=== PATIENT | male | born 1945 | race Caucasian/White ===

== ENCOUNTER → 2017-07-29 08:37 | Outpatient (CLI) | payer MEDICARE, OTHER, SELFPAY ==
[2016-08-06 14:55] VITALS: BMI 28.2
[2017-07-29 11:19] LABS: AST(SGOT) 18 U/L (15-37); Alanine Aminotransfer ALT/SGPT 29 U/L (16-61); Alkaline Phosphatase 92 U/L (45-117); Bilirubin, Direct 0.17 mg/dL (0.00-0.30); Cholesterol 84 mg/dL (200); Globulin 3.4 g/dL (2.2-4.2); High Density Lipoprotein 40 mg/dL; Protein, Total 7.4 g/dL (6.4-8.2); Triglycerides 62 mg/dL; Very Low Density Lipoprotein 12 mg/dL (5-40)
== END ==
PROVIDERS: Family Provider Internal Medicine; PCP Internal Medicine; Visit Provider Internal Medicine Cardiovascular Disease
DX: E78.5 Hyperlipidemia, unspecified (principal); Z79.899 Other long term (current) drug therapy
CPT/HCPCS: 36415; 80061; 80076

== ENCOUNTER → 2018-06-10 08:51 | Outpatient (CLI) | payer MEDICARE, OTHER, SELFPAY ==
[2016-08-06 14:55] VITALS: BMI 28.2
[2018-06-02 13:43] VITALS: BMI 28.6
--- NOTE | 2018-06-10 08:56 | CDU_ITS ---
Reason For Study: dizziness, carotid artery disease Rt. Velocities/BP Lt. Velocities/BP Prox CCA 83.8/12.9 cm/sec. Prox CCA 110/20.5 cm/sec. Mid CCA 78.0/15.2 cm/sec. Mid CCA 81.5/21.7 cm/sec. Dist CCA 66.3/14.7 cm/sec. Dist CCA 76.2/17.0 cm/sec. Prox ICA 53.9/15.2 cm/sec. Prox ICA 67.4/17.0 cm/sec. Mid ICA 82.1/18.2 cm/sec. Mid ICA 73.3/25.2 cm/sec. Dist ICA 71.3/20.7 cm/sec. Dist ICA 83.8/28.1 cm/sec. Rt. ICA/CCA = 1.1. Lt. ICA/CCA = 1.0. Prox ECA 157/16.5 cm/sec. Prox ECA 116/14.9 cm/sec. Rt. Vert. 72.1/18.8 cm/sec. Lt. Vert. 30.2 cm/sec. Right Extracranial There is intimal thickening but no significant atherosclerotic plaque noted in the right common carotid artery. There is heterogeneous, irregular atherosclerotic plaque noted in the right internal carotid artery. There is heterogeneous, irregular atherosclerotic plaque noted in the right external carotid artery. Antegrade flow is noted in the right vertebral artery. Left Extracranial There is intimal thickening but no significant atherosclerotic plaque noted in the left common carotid artery. There is heterogeneous, irregular atherosclerotic plaque noted in the left internal carotid artery. There is heterogeneous, irregular atherosclerotic plaque noted in the left external carotid artery. Antegrade flow is noted in the left vertebral artery. No end diastolic flow in the left Vertebral Artery. Interpretation Summary Mild (<50%) stenosis right extracranial internal carotid. Mild (<50%) stenosis left extracranial internal carotid. Flow within the vertebral arteries is antegrade bilaterally. Ordering Physician: Gerhard York Performed By: Leonard Josue RVT
== END ==
PROVIDERS: Family Provider Internal Medicine; PCP Internal Medicine; Referring Provider Internal Medicine Cardiovascular Disease; Visit Provider Internal Medicine Cardiovascular Disease
DX: R09.89 Other specified symptoms and signs involving the circulatory and respiratory systems (principal); E78.00 Pure hypercholesterolemia, unspecified
CPT/HCPCS: 93880

== ENCOUNTER → 2018-06-11 08:03 | Outpatient (CLI) | payer MEDICARE, OTHER, SELFPAY ==
[2016-08-06 14:55] VITALS: BMI 28.2
[2018-06-02 13:43] VITALS: BMI 28.6
[2018-06-11 08:49] LABS: AST(SGOT) 16 U/L (15-37); Alanine Aminotransfer ALT/SGPT 31 U/L (16-61); Albumin, Serum 3.9 g/dL (3.2-5.0); Alkaline Phosphatase 90 U/L (45-117); Bilirubin, Direct 0.25 mg/dL (0.00-0.30); Cholesterol 95 mg/dL (200); Globulin 3.1 g/dL (2.2-4.2); High Density Lipoprotein 44 mg/dL; Triglycerides 72 mg/dL; Very Low Density Lipoprotein 14 mg/dL (5-40)
--- OUTSIDE RECORDS SUMMARY | 2018-08-15 22:59 | XMS RPT_ITS ---
:1945 Author Organization OHIP Care Team Providers Name Role Phone ARIE TURNER Attending Unavailable ARIE TURNER Attending Unavailable ARIE TURNER Referring Unavailable ARIE TURNER Referring Unavailable ARIE TURNER Referring Unavailable ARIE TURNER Referring Unavailable ARIE TURNER Attending Unavailable ARIE TURNER Referring Unavailable Gerhard York Attending Unavailable Gerhard York Referring Unavailable Arie Turner Primary Care Unavailable Gerhard York Attending Unavailable Gerhard York Referring Unavailable Arie Turner Primary Care Unavailable Gerhard York Attending Unavailable Gerhard York Referring Unavailable Arie Turner Primary Care Unavailable Rosanna Escobedo Attending Unavailable Arie Turner Referring Unavailable Arie Turner Primary Care Unavailable Ashley rAgueta Attending Unavailable Rosanna Reilly Attending Unavailable Gerhard York Attending Unavailable Arie Turner Referring Unavailable PROBLEMS PROBLEMS DATE TYPE CONDITION / CODE ATTENDING STATUS SOURCE Unknown E78.00 - Pure [place], Active [place] 9 hypercholesterolemia, [facility] unspecified / Hospital E78.00(ICD-10) Repository Unknown R09.89 - Other specified [place], Active [place] 9 symptoms and signs [facility] involving the circulatory Hospital and respiratory systems / Repository R09.89(ICD-10) Unknown E78.0 - Pure [place], Active [place] 9 hypercholesterolemia / [facility] E78.0(ICD-10) Hospital Repository Active Other fci (current) NA Active [facility] 8 drug therapy / Clinic Main Z79.899(ICD-10) [place] Repository Active Hypothyroidism, NA Active [facility] 8 unspecified / Clinic Main E03.9(ICD-10) [facility] Repository Active Other amnesia / NA Active [place] 8 R41.3(ICD-10) Clinic Main [place] Repository Active Encounter for screening NA Active [place] 8 for malignant neoplasm of Clinic Main colon / Z12.11(ICD-10) [place] Repository Unknown Z79.899 - Other fci [place], Active [place] 8 (current) drug therapy / [facility] Z79.899(ICD-10) Hospital Repository Unknown E78.5 - Hyperlipidemia, [place], Active [place] 8 unspecified / [facility] E78.5(ICD-10) Hospital Repository PROCEDURES PROCEDURES No Procedure Records FoundRESULTS RESULTS CAROTID DUPLEX Observed: 06/11/2018 Status: F Source: [place] ULTRASOUND 11:37 AM [facility] REPOSITORY [facility] Cardiovascular Services [address] [place] [address] Carotid Duplex Ultrasound 06/10/18 0900 MR#: [id number] Acct: [id number] Name: DELMY DOW Rep #: [id number] : 1945 73 From: Jeffery Duque MD Attending Dr: Gerhard York MD Status: REG CLI Ordering Dr: Gerhard York MD Date: 06/10/18 Location: [facility] Sex: M C Admitted: Reason For Study: dizziness, carotid artery disease Rt. Velocities/BP Lt. Velocities/BP Prox CCA 83.8/12.9 cm/sec. Prox CCA 110/20.5 cm/sec. Mid CCA 78.0/15.2 cm/sec. Mid CCA 81.5/21.7 cm/sec. Dist CCA 66.3/14.7 cm/sec. Dist CCA 76.2/17.0 cm/sec. Prox ICA 53.9/15.2 cm/sec. Prox ICA 67.4/17.0 cm/sec. Mid ICA 82.1/18.2 cm/sec. Mid ICA 73.3/25.2 cm/sec. Dist ICA 71.3/20.7 cm/sec. Dist ICA 83.8/28.1 cm/sec. Rt. ICA/CCA = 1.1. Lt. ICA/CCA = 1.0. Prox ECA 157/16.5 cm/sec. Prox ECA 116/14.9 cm/sec. Rt. Vert. 72.1/18.8 cm/sec. Lt. Vert. 30.2 cm/sec. Right Extracranial There is intimal thickening but no significant atherosclerotic plaque noted in the right common carotid artery. There is heterogeneous, irregular atherosclerotic plaque noted in the right internal carotid artery. There is heterogeneous, irregular atherosclerotic plaque noted in the right external carotid artery. Antegrade flow is noted in the right vertebral artery. Left Extracranial There is intimal thickening but no significant atherosclerotic plaque noted in the left common carotid artery. There is heterogeneous, irregular atherosclerotic plaque noted in the left internal carotid artery. There is heterogeneous, irregular atherosclerotic plaque noted in the left external carotid artery. Antegrade flow is noted in the left vertebral artery. No end diastolic flow in the left Vertebral Artery. Interpretation Summary Mild (<50%) stenosis right extracranial internal carotid. Mild (<50%) stenosis left extracranial internal carotid. Flow within the vertebral arteries is antegrade bilaterally. Ordering Physician: Gerhard York Performed By: Leonard Josue RVT 06/11/18 113 Date Jeffery Duque MD CC: Gerhard York MD; Arie Turner MD Date Dictated: 06/10/18 09 Date Transcribed: 06/11/181135 Plant Controller: Signed LIVER PROFILE Collected: 06/11/2018 Status: F Source: [place] 8:11 AM [facility] REPOSITORY TYPE CODE TESTS RESULT OUT OF RANGE REFERENCE UNITS LAB L501.1500 6.4-8.2 g/dL Normal T PROT 7.0 LAB L501.1800 3.2-5.0 g/dL Normal ALB 3.9 LAB L501.1950 2.2-4.2 g/dL Normal GLOB 3.1 LAB L501.4100 15-37 U/L Normal AST 16 LAB L501.4305 45-117 U/L Normal ALK P 90 LAB L501.4405 16-61 U/L Normal ALT 31 LAB L501.4600 0.20-1.00 mg/dL Normal T BILI 0.80 LAB L501.4700 0.00-0.30 mg/dL Normal D BILI 0.25 Performed By: #### L500.3400, L500.4100 #### [facility] [address] [place], [place], [id number] LIPID PROFILE Collected: 06/11/2018 Status: F Source: [place] 8:11 AM [facility] REPOSITORY TYPE CODE TESTS RESULT OUT OF RANGE REFERENCE UNITS LAB L501.4900 200 mg/dL Normal CHOL 95 Result Comment: <200 mg/dL Desirable 200-240 mg/dL Borderline >240 mg/dL High Risk LAB L501.5000 mg/dL Normal TRIG 72 Result Comment: The drugs N-Acetylcysteine and Metamizole may falsely depress this assay. Serum Triglycerides Reference Interval Normal <150 mg/dL Borderline high 150 - 199 mg/dL High 200 - 499 mg/dL Very High > or = 500 mg/dL LAB L501.6400 mg/dL Normal HDL 44 Result Comment: The drugs N-Acetylcysteine and Metamizole may falsely depress this assay. Reference Range HDL <40 mg/dL Low HDL Cholesterol HDL >or= 60 mg/dL High HDL Cholesterol LAB L501.6500 0-130 mg/dL Normal LDL 37 LAB L501.6600 5-40 mg/dL Normal VLDL 14 Performed By: #### L500.3400, L500.4100 #### [facility] [address] [place], [address] CARDIOLOGY VISIT Observed: 06/02/2018 Status: F Source: [place] REPORT 2:39 PM [facility] REPOSITORY [facility] [address] [place] [address] OFFICE VISIT Date of Service: 06/02/18 MR#: [id number] Acct: [id number] Name: DELMY DOW Rep #: [id number] : 1945 Provider: Gerhard York MD Age/Sex: 73/M [place] [facility] [place] Status: Signed HPI HPI Details: DELMY DOW, is a 73 M who presents to the office today for outpatient cardiovascular follow-up. Overall he states he is doing well. He is walking approximately 4 miles per day. He feels good doing that. He has no symptoms of classic angina pectoris and has had no evidence of acute CHF or pulmonary edema. There has been no near syncope or syncope. He does not believe his lipids have been checked since his last lipid profile performed in July 2016. He also does not believe he has had his carotid arteries checked in quite some time. The last report available was from 2012. Intake Vital Signs06/02/18 Height 5 ft 9 in 06/02/18 Weight: 194 lb 06/02/18 Body Mass Index (BMI) 28.6 06/02/18 Blood Pressure 140/82 H Intake Visit Reasons: 10 M FU Allergies alginic acid Adverse Reaction (Verified 06/02/18 13:43) Unknown aluminum hydroxide Adverse Reaction (Verified 06/02/18 13:43) Unknown cromolyn [From Gastrocrom] Adverse Reaction (Verified 06/02/18 13:43) Hives magnesium Adverse Reaction (Verified 06/02/18 13:43) Unknown Medications Aspirin 81 mg PO DAILY 08/06/16 [History Confirmed 06/02/18] Tamsulosin HCl [Flomax] 0.4 mg PO DAILY 08/06/16 [History Confirmed 06/02/18] hydrochlorothiazide 25 mg tablet 25 mg PO DAILY #90 tab 06/06/17 [Rx Confirmed 06/02/18] atorvastatin 80 mg tablet 80 mg PO QHS #30 tab 08/02/17 [Rx Confirmed 06/02/18] clopidogrel 75 mg tablet 75 mg PO QDAY #30 tab 09/03/17 [Rx Confirmed 06/02/18] metoprolol succinate ER 25 mg tablet,extended release 24 hr 25 mg PO QDAY #90 tab 10/01/17 [Rx Confirmed 06/02/18] lisinopril 20 mg tablet 20 mg PO DAILY #90 tab 02/25/18 [Rx Confirmed 06/02/18] doxazosin 2 mg tablet 2 mg PO DAILY 06/02/18 [History Confirmed 06/02/18] [facility] Medical History Frequent ventricular premature beats (Chronic) Carotid bruit (Chronic) Sinus bradycardia (Chronic) Atrial arrhythmia (Chronic) Essential hypertension (Chronic) Atherosclerosis of coronary artery without angina pectoris (Chronic) 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 (Chronic) Atherosclerosis of coronary artery bypass graft without angina pectoris (Chronic) Non-ST elevated myocardial infarction (Chronic) HLD (hyperlipidemia) (Chronic) HTN (hypertension) (Inactive) Surgical History S/P CABG x 3 (Chronic 07/22/01) S/P angioplasty with stent (Chronic 08/06/16) Family History Father Cancer Hypertension Mother Diabetes CHF (congestive heart failure) Brother Hypertension Sister Hypertension Other Family history of hypertension Social History Smoking Status: Former smoker how long ago did patient quit smokin alcohol intake: current alcohol intake frequency: 0-2 drinks per day Alcohol type: wine substance use type: does not use caffeine: Yes Type: coffee what type of physical activity do you participate in: walking frequency: daily duration: 30-45 minutes/day seatbelt use: always do you feel safe at home: Yes ROS Const Const: Negative for fatigue, weakness, weight gain, weight loss, frequent falls or excessive sweating Eyes Eyes: Negative for change in vision, blurry vision or transient loss of vision ENT ENT: Positive for balance problems (occasional bending over); negative for dizziness Cardio Chest Pain: No Palpitations: No Edema: None Muscle aches with walking: None Resp Respiratory: Positive for Cough (productive cough, has a cold); negative for SOB with activity or SOB at rest GI GI: Negative vomiting or vomiting blood/hematemesis : Negative for hematuria Musc Musc: Positive for balance problems (occasional bending over); negative for muscle aches/ myalgia, muscle weakness or joint pain Skin Skin: Negative non-healing lesions or rash Neuro Neuro: Negative for weakness, blurry vision, dizziness, lightheadedness, frequent falls or orthostatic symptoms Beny Hematologic/Lymphatic: Negative for easy bleeding Endo Endo: Negative for fatigue or excessive sweating Psych Psych: Negative for anxiety or depression Allergy Allergy/Immunology: Negative for hives, Negative for rash Cardiology Exam Const Appearance: cooperative, no acute distress, well developed, healthy appearing and comfortable Nutritional Appearance: overweight Orientation: alert, awake and oriented x3 Head Head: normocephalic, atraumatic and normal to inspection Ears: hearing grossly normal bilaterally Nose: external nose normal Face and Sinus: face symmetric Mouth: moist mucous membranes Eyes Eyelids: eyelids normal Conjunctivae: conjunctivae normal Pupils: PERRL EOM: EOM intact bilaterally Neck Neck: normal visual inspection, no JVD and full ROM Carotids: bruit Bilateral Neck Mass: Negative Neck mass Chest Chest inspection: normal inspection of the chest, symmetric chest movement and normal respiratory effort Auscultation: Bilateral: Clear to Auscultation Cardio Palpation: normal PMI Rate: regular rate Rhythm: regular rhythm Heart sounds: S1 normal and S2 normal; negative rub, gallop or murmur GI GI: normal to inspection, soft and bowel sounds present; negative tender Neuro General: alert, awake, oriented x3 and moves all extremities Skin Skin: no rashes or lesions noted Extremities Pulses: Normal: Right Posterior Tibial Pulse, Left Posterior Tibial Pulse, Right Radial Pulse, Left Radial Pulse Lower Extremity Edema: None: Bilateral Psych Psychological: normal affect Assessment AND Plan 1. Atherosclerosis of [place] coronary artery of [place] heart without angina pectoris I25.10 07/21/01, FARLEY to LAD, diagonal branch of anterior descending with radial artery grafting to RCA with stenting to LAD and Dx in 2016 Plan At the present time he appears to be doing well. He will continue his current medical management and follow-up. 2. S/P CABG x 3 Z95.1 FARLEY to LAD, diagonal branch of anterior descending with radial artery grafting to RCA, 07/22/01 Plan He does have a history of CABG as noted above. Again he will continue medical therapy and follow-up 3. S/P angioplasty with stent Z95.820 [facility] w/PCI AND MELISSA to mid LAD 08/06/16 Plan He is status post previous PCI. Again he will continue medical management and follow-up. 4. Pure hypercholesterolemia E78.00 Plan He will have his lipid labs performed Orders Orders: 5. Essential hypertension I10 Plan His blood pressure appears to be under reasonably good control overall. He will continue medical management and follow-up 6. Bilateral carotid bruits R09.89 Plan He does have bilateral carotid artery bruits. The left may be somewhat more prominent than the right. He has had a carotid artery duplex study performed in 2012. He did have carotid artery stenosis. It was reported as mild at that time. He will have further evaluation with a follow-up carotid artery duplex study. Orders Orders: Plan Detail Other Orders Orders: Additional Comments Thank you for allowing me to participate in the care of your patient. Please don't hesitate to call if any issues arise This note was generated using a voice recognition system and there may be incorrect words, spelling or punctuation that were not noted when reviewing the office note prior to saving. Follow Up 9 Months (PFM) Coding Level of Care Code Off vis,est,level 4 Diagnoses Atherosclerosis of [place] coronary artery of [place] heart without angina pectoris I25.10 Coronary Disease-Associated Artery/Lesion type: [place] artery [place] vs. transplanted heart: [place] heart S/P CABG x 3 Z95.1 S/P angioplasty with stent Z95.820 Pure hypercholesterolemia E78.00 Hyperlipidemia type: pure hypercholesterolemia Essential hypertension I10 Bilateral carotid bruits R09.89 Laterality: bilateral Coding Level of Care Code Off vis,est,level 4 Diagnoses Atherosclerosis of [place] coronary artery of [place] heart without angina pectoris I25.10 Coronary Disease-Associated Artery/Lesion type: [place] artery [place] vs. transplanted heart: [place] heart S/P CABG x 3 Z95.1 S/P angioplasty with stent Z95.820 Pure hypercholesterolemia E78.00 Hyperlipidemia type: pure hypercholesterolemia Essential hypertension I10 Bilateral carotid bruits R09.89 Laterality: bilateral Supplemental Info Supplemental Information Labs LDL Cholesterol 32 mg/dL (0-130) 07/29/17 HDL Cholesterol 40 mg/dL (40-) 07/29/17 Triglycerides 62 mg/dL (-199) 07/29/17 VLDL Cholesterol 12 mg/dL (5-40) 07/29/17 Diagnostics Electrocardiogram 08/08/16 Stress Test Nuclear Medicine 07/07/15 Stress Test 09/14/16 Cardiac Catheterization 08/06/16 Chest X-Ray 08/06/16 06/02/18 1439 <Electronically signed by Gerhard York MD> Date Gerhard York MD Cosigner Signature: Date (if applicable) CC: Arie Turner MD PROGRESS Observed: 04/08/2018 Status: COMPLETED Source: [place] 9:30 AM [facility] REPOSITORY O ID: [id number] Author: Arie Turner Service: (none) Author Type: Physician Type: Progress Notes Filed: 04/08/2018 9:38 AM Note Text: This note was created using Tongtechriter. Subjective Delmy Dow is a 73 year old male. He was doing well. His blood pressure came down on recheck at the end of the visit, and he admitted to some anxiety at any physician office. He was scheduled to see his oncology social worker soon. He had chronic cough, but no wheezing, no change in minor dyspnea on exertion. He walked 10K steps almost daily. Other conditions were controlled. ACTIVE PROBLEM LIST Coronary Atherosclerosis Essential Hypertension Hyperlipidemia Bph With Obstruction/Lower Urinary Tract Symptoms Pac (Premature Atrial Contraction) Pvc (Premature Ventricular Contraction) Chronic Bronchitis (Hcc) Memory Disturbance Current Outpatient Prescriptions: doxazosin (CARDURA) 2 mg tablet take 1 tablet daily at bedtime for prostate clopidogrel (PLAVIX) 75 mg tablet Take 75 mg by mouth once daily. atorvastatin (LIPITOR) 80 mg tablet Take 1 tablet by mouth daily at bedtime. For cholesterol. hydroCHLOROthiazide (HYDRODIURIL, ESIDRIX) 25 mg tablet Take 1 tablet by mouth. hypertension lisinopril (ZESTRIL, PRINIVIL) 20 mg tablet Take 1 tablet by mouth once daily. Hypertension. multivitamin tablet Take 1 tablet by mouth once daily. aspirin, enteric coated (ASPIR-LOW) 81 mg EC tablet Take 1 tablet by mouth once daily. Dr. York metoprolol succinate ER (TOPROL XL) 25 mg 24 hr tablet Take 1 tablet by mouth once daily. Dr. York NITROGLYCERIN 0.[address] one(1) tablet on tongue as needed for chest pain. If no pain relief call 911. No current facility-administered medications for this visit. Review of Systems Constitutional: Negative. Respiratory: Positive for cough. Negative for chest tightness, shortness of breath and wheezing. Cardiovascular: Negative. Gastrointestinal: Negative. Musculoskeletal: Negative. Neurological: Negative. Psychiatric/Behavioral: Negative. Objective BP 130/72 (BP Site: Left Arm, BP Position: Sitting, BP Cuff Size: Regular Adult) Pulse 61 Temp 36.2 ?C (97.2 ?F) (Left Tympanic) Resp 12 Ht 174.6 cm (5' 8.75) Wt 84.8 kg (187 lb) BMI 27.82 kg/m? Physical Exam Constitutional: He is oriented to person, place, and time. No distress. HENT: Head: Normocephalic. Eyes: Pupils are equal, round, and reactive to light. Conjunctivae and EOM are normal. Neck: No JVD present. Carotid bruit is not present. Cardiovascular: Regular rhythm, normal heart sounds and intact distal pulses. Bradycardia present. Exam reveals no gallop. No murmur heard. Pulmonary/Chest: Breath sounds normal. He has no wheezes. He has no rales. Abdominal: Soft. Musculoskeletal: He exhibits no edema. Neurological: He is alert and oriented to person, place, and time. Coordination normal. Assessment and Plan 1. Medicare annual wellness visit, subsequent - ICD9: V70.0, ICD10: Z00.00 (primary diagnosis) Other note. 2. Essential hypertension - ICD9: 401.9, ICD10: I10 - fair control - Continue current medication(s) - Reviewed risks of HTN and principles of treatment - Goal of BP <130/80 3. Atherosclerosis of coronary artery of [place] heart without angina pectoris, unspecified vessel or lesion type - ICD9: 414.01, ICD10: I25.[address] York. 4. Hyperlipidemia, unspecified hyperlipidemia type - ICD9: 272.4, ICD10: E78.5 - to be determined upon return of lab results - Continue current medication. - Have labs sent here. 5. Chronic bronchitis, unspecified chronic bronchitis type (HCC) - ICD9: 491.9, ICD10: J42 Mild, stable, no treatment needed. Arie Turner MD PROGRESS Observed: 04/08/2018 Status: COMPLETED Source: [place] 9:14 AM [facility] REPOSITORY O ID: [id number] Author: Arie Turner Service: (none) Author Type: Physician Type: Progress Notes Filed: 04/08/2018 9:38 AM Note Text: Medicare Yearly Visit Medical B eligibilty date 2011 Date of last exam N/A PAST MEDICAL HISTORY Diagnosis Date - Chronic bronchitis (HCC) 08/11/2012 - Coronary atherosclerosis of unspecified type of vessel, [place] or graft 03/14/2005 - Hypertrophy of prostate with urinary obstruction and other lower urinary tract symptoms (LUTS) 03/14/2005 - Non-STEMI (non-ST elevated myocardial infarction) (HCC) 08/06/2016 - Other and unspecified hyperlipidemia 03/14/2005 - Postsurgical aortocoronary bypass status 03/14/2005 - PVC (premature ventricular contraction) 08/29/2011 - Status post insertion of drug-eluting stent into left anterior descending artery 08/06/2016 - Unspecified essential hypertension 03/14/2005 - Unspecified hearing loss PAST SURGICAL HISTORY Procedure Laterality Date - CABG, ARTERY-VEIN, THREE 2001 CABG, three grafts - CC CORONARY STENT 08/07/2016 MELISSA to LAD - REMOVAL GALLBLADDER 10/01/2002 Cholecystectomy Gaviscon [Aluminum Hydrox-Magnesium Carb] Medications reviewed: Yes FAMILY HISTORY Problem Relation Age of Onset - Cancer Father metastatic cancer - Diabetes Mother - GI Brother colon polyps - Seizures Brother - Blood Disease Brother leukemia - No Known Problems Sister - No Known Problems Sister - No Known Problems Brother - No Known Problems Brother - No Known Problems Brother - No Known Problems Brother SOCIAL HISTORY: Social History Marital status: Spouse name: Years of education: Number of children: Occupational History Occupation Employer Comment [employer] Social History Main Topics Smoking status: Former Smoker Packs/day: 2.00 Years: 30.00 Types: Cigarettes Quit date: 05/27/1997 Smokeless tobacco: Never Used Alcohol use: Yes 10.5 oz/week Glasses of Wine (5oz): 7 per week Comment: red wine Drug use: No Sexual activity: Yes Social History Narrative Lives with spouse. Independent of all activities of daily living. Delmy works out regularly 7 times per week with walking. He watches his diet for sodium, low fat and low cholesterol most of the time. List of current specialists seen: Dr. Gerhard York, cardiology. End of Live Planning discussed including patients advanced directive wishes: Yes I am willing to follow Delmy's advanced directives. Depression screen He in the past two weeks denies having felt down, depressed, hopeless or with little interest or pleasure in doing things. Functional Ability/Safety Screen 1. Was the patient's timed Up and Go test unsteady or longer than 30 seconds? No 2. Does the patient need help with the phone, transportation, shopping,preparing meals, housework, laundry, medications or managing money? No 3. Does your home have rugs in the hallway, lack of grab bars in the bathroom, lack of handrails on the stairs or have poor lighting? No Hearing Evaluation: hard of hearing, does not wear his hearing aids. PHYSICAL EXAM BP 158/86 (BP Site: Left Arm, BP Position: Sitting, BP Cuff Size: Regular Adult) Pulse 61 Temp 36.2 ?C (97.2 ?F) (Left Tympanic) Resp 12 Ht 174.6 cm (5' 8.75) Wt 84.8 kg (187 lb) BMI 27.82 kg/m? Alert and oriented X 3: YES Body mass index is 27.82 kg/m?. Visual acuity: OD: 20/40 OS: 20/40 OU: 20/40 ASSESSMENT/PLAN: 73 year old male The following prevention plan was discussed during the office visit and provided to the patient: - Weight Loss - Vaccines recommended Shingrix. - Glaucoma screening Arie Turner MD CNOV Observed: 04/08/2018 Status: COMPLETED Source: [place] 8:40 AM [facility] REPOSITORY Office Visit (INTMWS) DELMY DOW ([id number]) 1945 M Date Time Provider Department 04/08/18 8:40 AM ARIE TURNER INTMWS During your visit today, we recorded the following information about you: Temperature Pulse Respiration Blood pressure 97.2 degrees 61/minute 12/minute 130/72 Weight Height 84.8 kg 1.746 m Arie Turner MD 04/08/2018 9:38 AM Signed Medicare Yearly Visit Medical B eligibilty date 2011 Date of last exam N/A PAST MEDICAL HISTORY Diagnosis Date - Chronic bronchitis (HCC) 08/11/2012 - Coronary atherosclerosis of unspecified type of vessel, [place] or graft 03/14/2005 - Hypertrophy of prostate with urinary obstruction and other lower urinary tract symptoms (LUTS) 03/14/2005 - Non-STEMI (non-ST elevated myocardial infarction) (HCC) 08/06/2016 - Other and unspecified hyperlipidemia 03/14/2005 - Postsurgical aortocoronary bypass status 03/14/2005 - PVC (premature ventricular contraction) 08/29/2011 - Status post insertion of drug-eluting stent into left anterior descending artery 08/06/2016 - Unspecified essential hypertension 03/14/2005 - Unspecified hearing loss PAST SURGICAL HISTORY Procedure Laterality Date - CABG, ARTERY-VEIN, THREE 2001 CABG, three grafts - CC CORONARY STENT 08/07/2016 MELISSA to LAD - REMOVAL GALLBLADDER 10/01/2002 Cholecystectomy Gaviscon [Aluminum Hydrox-Magnesium Carb] Medications reviewed: Yes FAMILY HISTORY Problem Relation Age of Onset - Cancer Father metastatic cancer - Diabetes Mother - GI Brother colon polyps - Seizures Brother - Blood Disease Brother leukemia - No Known Problems Sister - No Known Problems Sister - No Known Problems Brother - No Known Problems Brother - No Known Problems Brother - No Known Problems Brother SOCIAL HISTORY: Social History Marital status: Spouse name: Years of education: Number of children: Occupational History Occupation Employer Comment [employer]* Social History Main Topics Smoking status: Former Smoker Packs/day: 2.00 Years: 30.00 Types: Cigarettes Quit date: 05/27/1997 Smokeless tobacco: Never Used Alcohol use: Yes 10.5 oz/week Glasses of Wine (5oz): 7 per week Comment: red wine Drug use: No Sexual activity: Yes Social History Narrative Lives with spouse. Independent of all activities of daily living. Delmy works out regularly 7 times per week with walking. He watches his diet for sodium, low fat and low cholesterol most of the time. List of current specialists seen: Dr. Gerhard York, cardiology. End of Live Planning discussed including patients advanced directive wishes: Yes I am willing to follow Delmy's advanced directives. Depression screen He in the past two weeks denies having felt down, depressed, hopeless or with little interest or pleasure in doing things. Functional Ability/Safety Screen 1. Was the patient's timed Up and Go test unsteady or longer than 30 seconds? No 2. Does the patient need help with the phone, transportation, shopping,preparing meals, housework, laundry, medications or managing money? No 3. Does your home have rugs in the hallway, lack of grab bars in the bathroom, lack of handrails on the stairs or have poor lighting? No Hearing Evaluation: hard of hearing, does not wear his hearing aids. PHYSICAL EXAM BP 158/86 (BP Site: Left Arm, BP Position: Sitting, BP Cuff Size: Regular Adult) Pulse 61 Temp 36.2 ?C (97.2 ?F) (Left Tympanic) Resp 12 Ht 174.6 cm (5' 8.75) Wt 84.8 kg (187 lb) BMI 27.82 kg/m? Alert and oriented X 3: YES Body mass index is 27.82 kg/m?. Visual acuity: OD: 20/40 OS: 20/40 OU: 20/40 ASSESSMENT/PLAN: 73 year old male The following prevention plan was discussed during the office visit and provided to the patient: - Weight Loss - Vaccines recommended Shingrix. - Glaucoma screening MD Arie Smith MD 04/08/2018 9:30 AM Signed Recombinant shingles vaccine (Shingrix) is recommended; 2 doses 2-6 months apart. Please read information, check with your insurance, and call to schedule vaccination. You may also be directed to your local pharmacy. Arie Turner MD 04/08/2018 9:38 AM Signed This note was created using Porch. Subjective Delmy Dow is a 73 year old male. He was doing well. His blood pressure came down on recheck at the end of the visit, and he admitted to some anxiety at any physician office. He was scheduled to see his oncology social worker soon. He had chronic cough, but no wheezing, no change in minor dyspnea on exertion. He walked 10K steps almost daily. Other conditions were controlled. ACTIVE PROBLEM LIST Coronary Atherosclerosis Essential Hypertension Hyperlipidemia Bph With Obstruction/Lower Urinary Tract Symptoms Pac (Premature Atrial Contraction) Pvc (Premature Ventricular Contraction) Chronic Bronchitis (Hcc) Memory Disturbance Current Outpatient Prescriptions: doxazosin (CARDURA) 2 mg tablet take 1 tablet daily at bedtime for prostate clopidogrel (PLAVIX) 75 mg tablet Take 75 mg by mouth once daily. atorvastatin (LIPITOR) 80 mg tablet Take 1 tablet by mouth daily at bedtime. For cholesterol. hydroCHLOROthiazide (HYDRODIURIL, ESIDRIX) 25 mg tablet Take 1 tablet by mouth. hypertension lisinopril (ZESTRIL, PRINIVIL) 20 mg tablet Take 1 tablet by mouth once daily. Hypertension. multivitamin tablet Take 1 tablet by mouth once daily. aspirin, enteric coated (ASPIR-LOW) 81 mg EC tablet Take 1 tablet by mouth once daily. Dr. York metoprolol succinate ER (TOPROL XL) 25 mg 24 hr tablet Take 1 tablet by mouth once daily. Dr. York NITROGLYCERIN 0.[address] one(1) tablet on tongue as needed for chest pain. If no pain relief call 911. No current facility-administered medications for this visit. Review of Systems Constitutional: Negative. Respiratory: Positive for cough. Negative for chest tightness, shortness of breath and wheezing. Cardiovascular: Negative. Gastrointestinal: Negative. Musculoskeletal: Negative. Neurological: Negative. Psychiatric/Behavioral: Negative. Objective BP 130/72 (BP Site: Left Arm, BP Position: Sitting, BP Cuff Size: Regular Adult) Pulse 61 Temp 36.2 ?C (97.2 ?F) (Left Tympanic) Resp 12 Ht 174.6 cm (5' 8.75) Wt 84.8 kg (187 lb) BMI 27.82 kg/m? Physical Exam Constitutional: He is oriented to person, place, and time. No distress. HENT: Head: Normocephalic. Eyes: Pupils are equal, round, and reactive to light. Conjunctivae and EOM are normal. Neck: No JVD present. Carotid bruit is not present. Cardiovascular: Regular rhythm, normal heart sounds and intact distal pulses. Bradycardia present. Exam reveals no gallop. No murmur heard. Pulmonary/Chest: Breath sounds normal. He has no wheezes. He has no rales. Abdominal: Soft. Musculoskeletal: He exhibits no edema. Neurological: He is alert and oriented to person, place, and time. Coordination normal. Assessment and Plan 1. Medicare annual wellness visit, subsequent - ICD9: V70.0, ICD10: Z00.00 (primary diagnosis) Other note. 2. Essential hypertension - ICD9: 401.9, ICD10: I10 - fair control - Continue current medication(s) - Reviewed risks of HTN and principles of treatment - Goal of BP <130/80 3. Atherosclerosis of coronary artery of [place] heart without angina pectoris, unspecified vessel or lesion type - ICD9: 414.01, ICD10: I25.[address] York. 4. Hyperlipidemia, unspecified hyperlipidemia type - ICD9: 272.4, ICD10: E78.5 - to be determined upon return of lab results - Continue current medication. - Have labs sent here. 5. Chronic bronchitis, unspecified chronic bronchitis type (HCC) - ICD9: 491.9, ICD10: J42 Mild, stable, no treatment needed. Arie Turner MD Referring Provider: ARIE TURNER [[id number]] Allergies As of Date: 04/08/2018 Noted Allergy Reaction GAVISCON (ALUMINUM HYDROX-MAGNESI*03/13/2005 7 - Swelling Comments: FOREHEAD SWELLING Date Reviewed: 04/08/2018 Reviewed by: Millie Fontana LPN - Fully Assessed Reason for Visit: Annual Medicare Wellness [Other] Primary Visit Diagnosis:Medicare annual wellness visit, subsequent [Z00.00] Other Visit Diagnoses:Essential hypertension [I10] Atherosclerosis of coronary artery of [place] heart without angina pectoris, unspecified vessel or lesion type [I25.10] Hyperlipidemia, unspecified hyperlipidemia type [E78.5] Chronic bronchitis, unspecified chronic bronchitis type (HCC) [J42] Prescriptions as of 04/08/2018 Sig: DOXAZOSIN 2 MG TABLET take 1 tablet daily at bedtim* CLOPIDOGREL 75 MG TABLET Take 75 mg by mouth once elvis* ATORVASTATIN 80 MG TABLET Take 1 tablet by mouth daily * HYDROCHLOROTHIAZIDE 25 MG TAB* Take 1 tablet by mouth. hyper* LISINOPRIL 20 MG TABLET Take 1 tablet by mouth once d* MULTIVITAMIN TABLET Take 1 tablet by mouth once d* ASPIRIN 81 MG TABLET,DELAYED * Take 1 tablet by mouth once d* METOPROLOL SUCCINATE ER 25 MG* Take 1 tablet by mouth once d* NITROGLYCERIN 0.4 MG SUBLINGU* Place one(1) tablet on tongue* Problem List As Of Date 04/08/2018 Noted Resolved Coronary atherosclerosis [I25.10] INVALID FOR* Postsurgical aortocoronary bypass status [Z95.1]INVALID FOR*04/08/2018 Essential hypertension [I10] INVALID FOR* Hyperlipidemia [E78.5] INVALID FOR* BPH with obstruction/lower urinary tract sympto*INVALID FOR* PAC (premature atrial contraction) [I49.1] INVALID FOR* PVC (premature ventricular contraction) [I49.3] INVALID FOR* Chronic bronchitis [J42] INVALID FOR* Non-STEMI (non-ST elevated myocardial infarctio*INVALID FOR*04/08/2018 Status post insertion of drug-eluting stent int*INVALID FOR*04/08/2018 Memory disturbance [R41.3] INVALID FOR* Other instructions from your clinician: Recombinant shingles vaccine (Shingrix) is recommended; 2 doses 2-6 months apart. Please read information, check with your insurance, and call to schedule vaccination. You may also be directed to your local pharmacy. Disposition: Return in about 6 months (around 10/06/2018). Follow-up and Disposition History Recorded Encounter Status:Closed by ARIE TURNER MD on 04/08/18 BASIC METABOLIC PANL Collected: 12/28/2017 Status: F Source: [place] 8:39 AM [facility] REPOSITORY TYPE CODE TESTS RESULT OUT OF REFERENCE UNITS RANGE LAB GLU 74-99 mg/dL Glucose 86 Result Comment: The [place] Diabetes Association (ADA) provides guidance for cutoff values for fasting glucose and random glucose. The ADA defines fasting as no caloric intake for at least 8 hours. Fas ting plasma glucose results between 100 to 125 mg/dL indicate increased risk for diabetes (prediabetes). Fasting plasma glucose results greater than or equal to 126 mg/dL meet the criteria for diagnosis of diabetes. In the absence of unequivocal hyperglycemia, results should be confirmed by repeat testing. In a patient with classic symptoms of hyperglycemia or hyperglycemic crisis, random plasma glucose results greater than or equal to 200 mg/dL meet the criteria for diagnosis of diabetes. Reference: Standards of Medical Care in Diabetes 2016, [place] Diabetes Association. Diabetes Care. 2016.39(Suppl 1). LAB BUN 9-24 mg/dL BUN 9 LAB CRET 0.73-1.22 mg/dL Creatinine 0.83 LAB NA 136-144 mmol/L Sodium Low 132 LAB K 3.7-5.1 mmol/L Potassium 4.1 LAB CL 97-105 mmol/L Chloride Low 93 LAB CO2 22-30 mmol/L CO2 24 LAB AGAP 9-18 mmol/L Anion Gap 15 LAB CA 8.5-10.2 mg/dL Calcium, Total 8.9 LAB GFRAA eGFR- Amer. >60 LAB GFRNAA . eGFR-All Other Races >60 Result Comment: eGFR (Estimated GFR) Units of measure: mL/min/1.73 meters squared eGFR is derived from the reexpressed MDRD Study equation using the following parameters: serum creatinine, age, gender and race. The creatinine assay has been calibrated to be traceable to IDMS. An eGFR <60 mL/min/1.73m2 for >3 months is consistent with chronic kidney disease. Refer to KDOQI guidelines for clinical interpretation. In patients with unstable renal function, e.g. those with acute kidney injury, the eGFR may not accurately reflect actual GFR. Performed By: #### BMP #### [address] [address] FREE T4 Collected: 12/28/2017 Status: F Source: [place] 8:39 AM [facility] REPOSITORY TYPE CODE TESTS RESULT OUT OF RANGE REFERENCE UNITS LAB FT4 0.9-1.7 ng/dL Free T4 1.4 Performed By: #### FT4, TSH #### [place] [address] TSH Collected: 12/28/2017 Status: F Source: [place] 8:39 AM [facility] REPOSITORY TYPE CODE TESTS RESULT OUT OF RANGE REFERENCE UNITS LAB TSH 0.400-5.500 uU/mL TSH 5.170 Performed By: #### FT4, TSH #### [place] [address] CBC Collected: 11/30/2017 Status: F Source: [place] 8:46 AM [facility] REPOSITORY TYPE CODE TESTS RESULT OUT OF REFERENCE UNITS RANGE LAB WBC 3.70-11.00 k/uL WBC 7.88 LAB RBC 4.20-6.00 m/uL RBC 5.12 LAB HGB 13.0-17.0 g/dL Hemoglobin 16.0 LAB HCT 39.0-51.0 % Hematocrit 47.9 LAB MCV 80.0-100.0 fL MCV 93.6 LAB MCH 26.0-34.0 pG MCH 31.3 LAB MCHC 30.5-36.0 g/dL MCHC 33.4 LAB RDWCV 11.5-15.0 % RDW-CV 13.5 LAB PLTCT 150-400 k/uL Platelet Count 282 LAB MPV 9.0-12.7 fL MPV 10.6 LAB ABSNUC <0.01 k/uL Absolute nRBC <0.01 Performed By: #### CBC, B12, SERFOL, BMP, TSH #### [address] [address] VITAMIN B12 Collected: 11/30/2017 Status: F Source: [place] 8:46 AM [facility] REPOSITORY TYPE CODE TESTS RESULT OUT OF REFERENCE UNITS RANGE LAB B12 232-1245 pg/mL Vitamin B12 418 Performed By: #### CBC, B12, SERFOL, BMP, TSH #### [facility] [employer] [address], [place] [address] FOLATE, SERUM Collected: 11/30/2017 Status: F Source: [place] 8:46 AM [facility] REPOSITORY TYPE CODE TESTS RESULT OUT OF REFERENCE UNITS RANGE LAB SERFOL >4.7 ng/mL Folate, 18.0 Serum Performed By: #### CBC, B12, SERFOL, BMP, TSH #### [facility] [address] [place], [place] [address] BASIC METABOLIC PANL Collected: 11/30/2017 Status: F Source: [place] 8:46 AM [facility] REPOSITORY TYPE CODE TESTS RESULT OUT OF REFERENCE UNITS RANGE LAB GLU 74-99 mg/dL High Glucose 101 Result Comment: The [place] Diabetes Association (ADA) provides guidance for cutoff values for fasting glucose and random glucose. The ADA defines fasting as no caloric intake for at least 8 hours. Fas ting plasma glucose results between 100 to 125 mg/dL indicate increased risk for diabetes (prediabetes). Fasting plasma glucose results greater than or equal to 126 mg/dL meet the criteria for diagnosis of diabetes. In the absence of unequivocal hyperglycemia, results should be confirmed by repeat testing. In a patient with classic symptoms of hyperglycemia or hyperglycemic crisis, random plasma glucose results greater than or equal to 200 mg/dL meet the criteria for diagnosis of diabetes. Reference: Standards of Medical Care in Diabetes 2016, [place] Diabetes Association. Diabetes Care. 2016.39(Suppl 1). LAB BUN 9-24 mg/dL BUN 12 LAB CRET 0.73-1.22 mg/dL Creatinine 0.88 LAB NA 136-144 mmol/L Sodium 137 LAB K 3.7-5.1 mmol/L Potassium 4.3 LAB CL 97-105 mmol/L Chloride 102 LAB CO2 22-30 mmol/L CO2 25 LAB AGAP 9-18 mmol/L Anion Gap 10 LAB CA 8.5-10.2 mg/dL Calcium, Total 9.1 LAB GFRAA eGFR- Amer. >60 LAB GFRNAA . eGFR-All Other Races >60 Result Comment: eGFR (Estimated GFR) Units of measure: mL/min/1.73 meters squared eGFR is derived from the reexpressed MDRD Study equation using the following parameters: serum creatinine, age, gender and race. The creatinine assay has been calibrated to be traceable to IDPA. An eGFR <60 mL/min/1.73m2 for >3 months is consistent with chronic kidney disease. Refer to KDOQI guidelines for clinical interpretation. In patients with unstable renal function, e.g. those with acute kidney injury, the eGFR may not accurately reflect actual GFR. Performed By: #### CBC, B12, SERFOL, BMP, TSH #### [facility] [employer] [address] [place], [place] [address] TSH Collected: 11/30/2017 Status: F Source: [place] 8:46 AM [facility] REPOSITORY TYPE CODE TESTS RESULT OUT OF RANGE REFERENCE UNITS LAB TSH 0.400-5.500 uU/mL High TSH 6.600 Performed By: #### CBC, B12, SERFOL, BMP, TSH #### [facility] [employer] [address] [place], [place] [address] FECAL OCCULT BLD Collected: 11/21/2017 Status: F Source: [place] TST 9:00 PM [facility] REPOSITORY TYPE CODE TESTS RESULT OUT OF REFERENCE UNITS RANGE LAB IFO Negative Immuno Negative FOB Result Comment: This test was developed and its performance characteristics determined by [facility]'s [place] [facility] [place] ([facility]). It has not been cleared or approved by the FDA. [facility] is regulated under CLIA as qualified to perform high-complexity testing. This test is used for clinical purposes. It should not be regarded as investigational or for research. Performed By: #### IFOBT #### [facility] [employer] [address] [place], [place] [address] PROGRESS Observed: 11/20/2017 Status: COMPLETED Source: [place] 10:08 AM [facility] REPOSITORY HNO ID: [id number] Author: Arie Turner Service: (none) Author Type: Physician Type: Progress Notes Filed: 11/20/2017 10:55 AM Note Text: This note was created using NoteWriter. Subjective Delmy Dow is a 72 year old male here for follow up. His memory disturbance was chronic. This did not impact on his activities of daily living. He was active with house work, yard work, gardening. He does not get lost. His other conditions were stable. He sees cardiology in the fall. I started doxazosin, and there was a question about diarrhea. His diarrhea was intermittent, and not related to doxazosin. It appears, his had continued doxazosin since this was being refilled, not tamsulosin. Review of Systems Constitutional: Negative. Respiratory: Negative. Cardiovascular: Negative. Gastrointestinal: Negative. Genitourinary: Negative. Musculoskeletal: Negative. Neurological: Negative. Psychiatric/Behavioral: Negative. ACTIVE PROBLEM LIST Coronary Atherosclerosis Postsurgical Aortocoronary Bypass Status Essential Hypertension Hyperlipidemia Bph With Obstruction/Lower Urinary Tract Symptoms Pac (Premature Atrial Contraction) Pvc (Premature Ventricular Contraction) Chronic Bronchitis (Hcc) Non-Stemi (Non-St Elevated Myocardial Infarction) ([facility]) Status Post Insertion of Drug-Eluting Stent into Left Anterior Descending Artery Memory Disturbance Current Outpatient Prescriptions: doxazosin (CARDURA) 2 mg tablet Take 2 mg by mouth daily at bedtime. For prostate and blood pressure. clopidogrel (PLAVIX) 75 mg tablet Take 75 mg by mouth once daily. atorvastatin (LIPITOR) 80 mg tablet Take 1 tablet by mouth daily at bedtime. For cholesterol. hydroCHLOROthiazide (HYDRODIURIL, ESIDRIX) 25 mg tablet Take 1 tablet by mouth. hypertension lisinopril (ZESTRIL, PRINIVIL) 20 mg tablet Take 1 tablet by mouth once daily. Hypertension. multivitamin tablet Take 1 tablet by mouth once daily. aspirin, enteric coated (ASPIR-LOW) 81 mg EC tablet Take 1 tablet by mouth once daily. Dr. York metoprolol succinate ER (TOPROL XL) 25 mg 24 hr tablet Take 1 tablet by mouth once daily. Dr. York NITROGLYCERIN 0.[address] one(1) tablet on tongue as needed for chest pain. If no pain relief call 911. No current facility-administered medications for this visit. Objective BP 140/74 (BP Site: Left Arm, BP Position: Sitting, BP Cuff Size: Regular Adult) Pulse (!) 55 Temp 36.2 ?C (97.1 ?F) (Left Tympanic) Resp 12 Wt 85.7 kg (189 lb) BMI 29.16 kg/m? Physical Exam Constitutional: He appears well-nourished. Eyes: Conjunctivae are normal. Cardiovascular: Regular rhythm and normal heart sounds. Exam reveals no gallop. No murmur heard. Pulmonary/Chest: Breath sounds normal. Musculoskeletal: He exhibits no edema. Neurological: He is alert. He exhibits normal muscle tone. Coordination normal. Psychiatric: He has a normal mood and affect. His behavior is normal. MINI-MENTAL STATE EXAMINATION (MMSE) MAXIMUM TOTAL SCORE = 30 TOTAL SCORE = 25/30 Suggested guideline for determining the severity of cognitive impairment: Mild: MMSE>21 Moderate: MMSE 10-20 Severe: MMSE<9 Expected decline in MMSE scores in untreated mild to moderate Alzheimer's patient is 2 to 4 points per year. *Adapted from Folstein et al.1 and Marnie and Yeyo2. (c) 1974, 1997 [employer] Used with permission. References: 1. Yeyo KHAN, Yeyo SE, Marichuy CT. Mini- Mental State: a practical method for grading the cognitive state of patients for the clinician. J Psychiatr Res. 1975; 12:189-198. 2. JR Marnie, Yeyo KHAN, Mini-Mental State Examination (MMSE). Psychopharm Bull. 1988;24:689-692. 3. Janina JT, Hunter FJ, Vonnie RD, Lexa A, Atul F. Neuropsychological function in Alzheimer's disease: pattern of impairment and rates of progression. Arch Neurol. 1988;45:263-268. 4. Hortencia SPICER, Danny B, Deniz SKatarinaP, Amanda OTTO. Predictors of cognitive and functional progression in patients with probable Alzheimer's disease. Neurology. 1992;42:5589-0807. Assessment and Plan 1. Memory disturbance - ICD9: 780.93, ICD10: R41.3 (primary diagnosis) Mild cognitive impairment. Options discussed. Discussed medication dosage, usage, goals of therapy, and side effects. We agreed to monitor for now. 2. Atherosclerosis of coronary artery of [place] heart without angina pectoris, unspecified vessel or lesion type - ICD9: 414.01, ICD10: I25.10 Stable. 3. Essential hypertension - ICD9: 401.9, ICD10: I10 - fair control - Continue current medication(s) 4. BPH with obstruction/lower urinary tract symptoms - ICD9: 600.01, 599.69, ICD10: N40.1, N13.8 Controlled. 5. Diarrhea, unspecified type - ICD9: 787.91, ICD10: R19.7 Intermittent, mild. 6. Screening for colon cancer - ICD9: V76.51, ICD10: Z12.11 He was anxious about colonoscopy since his brother had complications from procedure. - FECAL OCCULT BLOOD TEST Arie Turner MD CNOV Observed: 11/20/2017 Status: COMPLETED Source: [place] 9:20 AM [facility] REPOSITORY Office Visit (INTMWS) DELMY DOW ([id number]) 1945 M Date Time Provider Department 11/20/17 9:20 AM ARIE TURNER INTMWS During your visit today, we recorded the following information about you: Temperature Pulse Respiration Blood pressure 97.1 degrees 55/minute 12/minute 140/74 Weight 85.7 kg Arie Turner MD 11/20/2017 10:55 AM Signed This note was created using Porch. Subjective Delmy Dow is a 72 year old male here for follow up. His memory disturbance was chronic. This did not impact on his activities of daily living. He was active with house work, yard work, gardening. He does not get lost. His other conditions were stable. He sees cardiology in the fall. I started doxazosin, and there was a question about diarrhea. His diarrhea was intermittent, and not related to doxazosin. It appears, his had continued doxazosin since this was being refilled, not tamsulosin. Review of Systems Constitutional: Negative. Respiratory: Negative. Cardiovascular: Negative. Gastrointestinal: Negative. Genitourinary: Negative. Musculoskeletal: Negative. Neurological: Negative. Psychiatric/Behavioral: Negative. ACTIVE PROBLEM LIST Coronary Atherosclerosis Postsurgical Aortocoronary Bypass Status Essential Hypertension Hyperlipidemia Bph With Obstruction/Lower Urinary Tract Symptoms Pac (Premature Atrial Contraction) Pvc (Premature Ventricular Contraction) Chronic Bronchitis (Hcc) Non-Stemi (Non-St Elevated Myocardial Infarction) (Hcc) Status Post Insertion of Drug-Eluting Stent into Left Anterior Descending Artery Memory Disturbance Current Outpatient Prescriptions: doxazosin (CARDURA) 2 mg tablet Take 2 mg by mouth daily at bedtime. For prostate and blood pressure. clopidogrel (PLAVIX) 75 mg tablet Take 75 mg by mouth once daily. atorvastatin (LIPITOR) 80 mg tablet Take 1 tablet by mouth daily at bedtime. For cholesterol. hydroCHLOROthiazide (HYDRODIURIL, ESIDRIX) 25 mg tablet Take 1 tablet by mouth. hypertension lisinopril (ZESTRIL, PRINIVIL) 20 mg tablet Take 1 tablet by mouth once daily. Hypertension. multivitamin tablet Take 1 tablet by mouth once daily. aspirin, enteric coated (ASPIR-LOW) 81 mg EC tablet Take 1 tablet by mouth once daily. Dr. York metoprolol succinate ER (TOPROL XL) 25 mg 24 hr tablet Take 1 tablet by mouth once daily. Dr. York NITROGLYCERIN 0.[address] one(1) tablet on tongue as needed for chest pain. If no pain relief call 911. No current facility-administered medications for this visit. Objective BP 140/74 (BP Site: Left Arm, BP Position: Sitting, BP Cuff Size: Regular Adult) Pulse (!) 55 Temp 36.2 ?C (97.1 ?F) (Left Tympanic) Resp 12 Wt 85.7 kg (189 lb) BMI 29.16 kg/m? Physical Exam Constitutional: He appears well-nourished. Eyes: Conjunctivae are normal. Cardiovascular: Regular rhythm and normal heart sounds. Exam reveals no gallop. No murmur heard. Pulmonary/Chest: Breath sounds normal. Musculoskeletal: He exhibits no edema. Neurological: He is alert. He exhibits normal muscle tone. Coordination normal. Psychiatric: He has a normal mood and affect. His behavior is normal. MINI-MENTAL STATE EXAMINATION (MMSE) MAXIMUM TOTAL SCORE = 30 TOTAL SCORE = 25/30 Suggested guideline for determining the severity of cognitive impairment: Mild: MMSE>21 Moderate: MMSE 10-20 Severe: MMSE<9 Expected decline in MMSE scores in untreated mild to moderate Alzheimer's patient is 2 to 4 points per year. *Adapted from Folstein et al.1 and Marnie and Folstein2. (c) 1975, 1997 [employer] Used with permission. References: 1. Folstein MF, Folstein SE, Marichuy CT. Mini- Mental State: a practical method for grading the cognitive state of patients for the clinician. J Psychiatr Res. 1975; 12:189-198. 2. JR Marnie, Foljen MF, Mini-Mental State Examination (MMSE). Psychopharm Bull. 1988;24:689-692. 3. Roa JT, Hunter FJ, Vonnie RD, Lexa A, Atul F. Neuropsychological function in Alzheimer's disease: pattern of impairment and rates of progression. Arch Neurol. 1988;45:263-268. 4. Hortencia JA, Danny B, Deniz SKatarina P, Amanda OTTO. Predictors of cognitive and functional progression in patients with probable Alzheimer's disease. Neurology. 1992;42:0083-6885. Assessment and Plan 1. Memory disturbance - ICD9: 780.93, ICD10: R41.3 (primary diagnosis) Mild cognitive impairment. Options discussed. Discussed medication dosage, usage, goals of therapy, and side effects. We agreed to monitor for now. 2. Atherosclerosis of coronary artery of [place] heart without angina pectoris, unspecified vessel or lesion type - ICD9: 414.01, ICD10: I25.10 Stable. 3. Essential hypertension - ICD9: 401.9, ICD10: I10 - fair control - Continue current medication(s) 4. BPH with obstruction/lower urinary tract symptoms - ICD9: 600.01, 599.69, ICD10: N40.1, N13.8 Controlled. 5. Diarrhea, unspecified type - ICD9: 787.91, ICD10: R19.7 Intermittent, mild. 6. Screening for colon cancer - ICD9: V76.51, ICD10: Z12.11 He was anxious about colonoscopy since his brother had complications from procedure. - FECAL OCCULT BLOOD TEST Arie Turner MD Referring Provider: ARIE TURNER [[id number]] Allergies As of Date: 11/20/2017 Noted Allergy Reaction GAVISCON (ALUMINUM HYDROX-MAGNESI*03/13/2005 7 - Swelling Comments: FOREHEAD SWELLING Date Reviewed: 11/20/2017 Reviewed by: Millie Fontana LPN - Fully Assessed Reason for Visit: F/U 3 Month [443] Primary Visit Diagnosis:Memory disturbance [R41.3] Other Visit Diagnoses:Atherosclerosis of coronary artery of [place] heart without angina pectoris, unspecified vessel or lesion type [I25.10] Essential hypertension [I10] BPH with obstruction/lower urinary tract symptoms [N40.1, N13.8] Diarrhea, unspecified type [R19.7] Screening for colon cancer [Z12.11] Order(s):BASIC METABOLIC PNL [SQBMP] Order #: [id number] FUTURE CBC [SQCBC] Order #: [id number] FUTURE TSH BLD [SQTSH] Order #: [id number] FUTURE VITAMIN B12 BLOOD [SQB12] Order #: [id number] FUTURE FOLATE SERUM [SQSERFOL] Order #: [id number] FUTURE FECAL OCCULT BLOOD TEST [SQIFOBT] Order #: [id number] FUTURE Prescriptions as of 11/20/2017 Sig: DOXAZOSIN 2 MG TABLET Take 2 mg by mouth daily at b* CLOPIDOGREL 75 MG TABLET Take 75 mg by mouth once elvis* ATORVASTATIN 80 MG TABLET Take 1 tablet by mouth daily * HYDROCHLOROTHIAZIDE 25 MG TAB* Take 1 tablet by mouth. hyper* LISINOPRIL 20 MG TABLET Take 1 tablet by mouth once d* MULTIVITAMIN TABLET Take 1 tablet by mouth once d* ASPIRIN 81 MG TABLET,DELAYED * Take 1 tablet by mouth once d* METOPROLOL SUCCINATE ER 25 MG* Take 1 tablet by mouth once d* NITROGLYCERIN 0.4 MG SUBLINGU* Place one(1) tablet on tongue* Medication notes this encounter TAMSULOSIN 0.4 MG CAPSULE >> Flavio MD Nick 11/20/2017 9:55 AM no recent refills Problem List As Of Date 11/20/2017 Noted Resolved Coronary atherosclerosis [I25.10] INVALID FOR* AORTOCORONARY BYPASS STATUS [Z95.1] INVALID FOR* Essential hypertension [I10] INVALID FOR* Hyperlipidemia [E78.5] INVALID FOR* BPH with obstruction/lower urinary tract sympto*INVALID FOR* PAC (premature atrial contraction) [I49.1] INVALID FOR* PVC (premature ventricular contraction) [I49.3] INVALID FOR* Chronic bronchitis [J42] INVALID FOR* Non-STEMI (non-ST elevated myocardial infarctio*INVALID FOR* Status post insertion of drug-eluting stent int*INVALID FOR* Memory disturbance [R41.3] INVALID FOR* Medications Discontinued During This Encounter tamsulosin ER (FLOMAX) 0.4 mg cp24 08/22/2017 11/20/2017 Class: Med Update Route: ORAL Sig: Take 1 capsule by mouth once daily. Disc: Erroneous entry Disposition: Return in about 5 months (around 04/22/2018). Follow-up and Disposition History Recorded Encounter Status:Closed by ARIE TURNER MD on 11/20/17 CNPTOUTREA Observed: 08/20/2017 Status: COMPLETED Source: [place] 12:00 AM [facility] REPOSITORY Patient Outreach (INTMWH) DELMY DOW ([id number]) 1945 M Date Time Provider Department 08/20/17 ARIE TURNER [facility] During your visit today, we recorded the following information about you: Allergies As of Date: 08/20/2017 Noted Allergy Reaction GAVISCON (ALUMINUM HYDROX-MAGNESI*03/13/2005 7 - Swelling Comments: FOREHEAD SWELLING Date Reviewed: 08/15/2017 Reviewed by: Millie Fontana LPN - Fully Assessed Visit Diagnosis:Medication management [Z79.899] Order(s):BASIC METABOLIC PNL [SQBMP] Order #: [id number] FUTURE Prescriptions as of 08/20/2017 Sig: X TAMSULOSIN 0.4 MG CAPSULE Take 1 capsule by mouth once * CLOPIDOGREL 75 MG TABLET Take 75 mg by mouth once elvis* ATORVASTATIN 80 MG TABLET Take 1 tablet by mouth daily * HYDROCHLOROTHIAZIDE 25 MG TAB* Take 1 tablet by mouth. hyper* LISINOPRIL 20 MG TABLET Take 1 tablet by mouth once d* X DOXAZOSIN 2 MG TABLET Take 1 tablet by mouth daily * MULTIVITAMIN TABLET Take 1 tablet by mouth once d* ASPIRIN 81 MG TABLET,DELAYED * Take 1 tablet by mouth once d* METOPROLOL SUCCINATE ER 25 MG* Take 1 tablet by mouth once d* NITROGLYCERIN 0.4 MG SUBLINGU* Place one(1) tablet on tongue* Problem List As Of Date 08/20/2017 Noted Resolved Coronary atherosclerosis [I25.10] INVALID FOR* AORTOCORONARY BYPASS STATUS [Z95.1] INVALID FOR* Essential hypertension [I10] INVALID FOR* Hyperlipidemia [E78.5] INVALID FOR* BPH with obstruction/lower urinary tract sympto*INVALID FOR* PAC (premature atrial contraction) [I49.1] INVALID FOR* PVC (premature ventricular contraction) [I49.3] INVALID FOR* Chronic bronchitis [J42] INVALID FOR* Non-STEMI (non-ST elevated myocardial infarctio*INVALID FOR* Status post insertion of drug-eluting stent int*INVALID FOR* Memory disturbance [R41.3] INVALID FOR* Encounter Status:Closed by [employer], PRODUSER on 03/07/18 PROGRESS Observed: 08/15/2017 Status: COMPLETED Source: [place] 8:37 AM [facility] REPOSITORY O ID: [id number] Author: Arie Turner Service: (none) Author Type: Physician Type: Progress Notes Filed: 08/15/2017 8:48 AM Note Text: This note was created using [employer]. Subjective Delmy Dow is a 72 year old male was here for a long overdue follow up. He had a non STEMI last July 2016, and had not returned since then. He was following with Dr. York and his medications have changed. We updated his medication list. I am refilling only tamsulosin for his benign prostatic hypertrophy. His benign prostatic hypertrophy was fair. He was experiencing some incomplete emptying. Nocturia was 0-2 times a night. He denied frequency. ACTIVE PROBLEM LIST Coronary Atherosclerosis Postsurgical Aortocoronary Bypass Status Essential Hypertension Hyperlipidemia Bph With Obstruction/Lower Urinary Tract Symptoms Pac (Premature Atrial Contraction) Pvc (Premature Ventricular Contraction) Chronic Bronchitis (Hcc) Non-Stemi (Non-St Elevated Myocardial Infarction) (Hcc) Status Post Insertion of Drug-Eluting Stent into Left Anterior Descending Artery Current Outpatient Prescriptions: clopidogrel (PLAVIX) 75 mg tablet Take 75 mg by mouth once daily. tamsulosin ER (FLOMAX) 0.4 mg cp24 Take 1 capsule by mouth once daily. multivitamin tablet Take 1 tablet by mouth once daily. aspirin, enteric coated (ASPIR-LOW) 81 mg EC tablet Take 1 tablet by mouth once daily. Dr. York metoprolol succinate ER (TOPROL XL) 25 mg 24 hr tablet Take 1 tablet by mouth once daily. Dr. York NITROGLYCERIN 0.[address] one(1) tablet on tongue as needed for chest pain. If no pain relief call 911. atorvastatin (LIPITOR) 80 mg tablet Take 1 tablet by mouth daily at bedtime. For cholesterol. hydroCHLOROthiazide (HYDRODIURIL, ESIDRIX) 25 mg tablet Take 1 tablet by mouth. hypertension lisinopril (ZESTRIL, PRINIVIL) 20 mg tablet Take 1 tablet by mouth once daily. Hypertension. No current facility-administered medications for this visit. Review of Systems Constitutional: Negative. Respiratory: Negative. Cardiovascular: Negative. Gastrointestinal: Negative. Genitourinary: Positive for difficulty urinating. Negative for dysuria. Neurological: Negative. Psychiatric/Behavioral: Increasing memory disturbance. Objective BP 142/79 (BP Site: Left Arm, BP Position: Sitting, BP Cuff Size: Regular Adult) Pulse (!) 55 Temp 36.3 ?C (97.4 ?F) (Left Tympanic) Resp 16 Wt 87.1 kg (192 lb) BMI 29.63 kg/m2 Physical Exam Constitutional: He appears well-nourished. Cardiovascular: Normal heart sounds. Exam reveals no gallop. No murmur heard. Pulmonary/Chest: Breath sounds normal. Abdominal: Soft. There is no tenderness. Musculoskeletal: He exhibits no edema. Neurological: He is alert. Coordination normal. Psychiatric: He has a normal mood and affect. Assessment and Plan ASSESSMENT/PLAN: 1. Atherosclerosis of coronary artery of [place] heart without angina pectoris, unspecified vessel or lesion type - ICD9: 414.01, ICD10: I25.10 (primary diagnosis) Stable. - CLOPIDOGREL 75 MG TABLET 2. Essential hypertension - ICD9: 401.9, ICD10: I10 - suboptimal control - Medications updated. 3. Hyperlipidemia, unspecified hyperlipidemia type - ICD9: 272.4, ICD10: E78.5 - good control 4. BPH with obstruction/lower urinary tract symptoms - ICD9: 600.01, 599.69, ICD10: N40.1, N13.8 - Discontinue TAMSULOSIN. - DOXAZOSIN 2 MG TABLET. New medication. Discussed medication dosage, usage, goals of therapy, and side effects. 5. Memory disturbance - ICD9: 780.93, ICD10: R41.3 Reevaluate next visit. Arie Turner MD CNOV Observed: 08/15/2017 Status: COMPLETED Source: [place] 8:00 AM [facility] REPOSITORY Office Visit (INTMWS) DELMY DOW ([id number]) 1945 M Date Time Provider Department 08/15/17 8:00 AM ARIE TURNER INTMWS During your visit today, we recorded the following information about you: Temperature Pulse Respiration Blood pressure 97.4 degrees 55/minute 16/minute 142/79 Weight 87.1 kg Arie Turner MD 08/15/2017 8:48 AM Signed This note was created using [employer]. Subjective Delmy Dow is a 72 year old male was here for a long overdue follow up. He had a non STEMI last July 2016, and had not returned since then. He was following with Dr. York and his medications have changed. We updated his medication list. I am refilling only tamsulosin for his benign prostatic hypertrophy. His benign prostatic hypertrophy was fair. He was experiencing some incomplete emptying. Nocturia was 0-2 times a night. He denied frequency. ACTIVE PROBLEM LIST Coronary Atherosclerosis Postsurgical Aortocoronary Bypass Status Essential Hypertension Hyperlipidemia Bph With Obstruction/Lower Urinary Tract Symptoms Pac (Premature Atrial Contraction) Pvc (Premature Ventricular Contraction) Chronic Bronchitis (Hcc) Non-Stemi (Non-St Elevated Myocardial Infarction) ([facility]) Status Post Insertion of Drug-Eluting Stent into Left Anterior Descending Artery Current Outpatient Prescriptions: clopidogrel (PLAVIX) 75 mg tablet Take 75 mg by mouth once daily. tamsulosin ER (FLOMAX) 0.4 mg cp24 Take 1 capsule by mouth once daily. multivitamin tablet Take 1 tablet by mouth once daily. aspirin, enteric coated (ASPIR-LOW) 81 mg EC tablet Take 1 tablet by mouth once daily. Dr. York metoprolol succinate ER (TOPROL XL) 25 mg 24 hr tablet Take 1 tablet by mouth once daily. Dr. York NITROGLYCERIN 0.[address] one(1) tablet on tongue as needed for chest pain. If no pain relief call 911. atorvastatin (LIPITOR) 80 mg tablet Take 1 tablet by mouth daily at bedtime. For cholesterol. hydroCHLOROthiazide (HYDRODIURIL, ESIDRIX) 25 mg tablet Take 1 tablet by mouth. hypertension lisinopril (ZESTRIL, PRINIVIL) 20 mg tablet Take 1 tablet by mouth once daily. Hypertension. No current facility-administered medications for this visit. Review of Systems Constitutional: Negative. Respiratory: Negative. Cardiovascular: Negative. Gastrointestinal: Negative. Genitourinary: Positive for difficulty urinating. Negative for dysuria. Neurological: Negative. Psychiatric/Behavioral: Increasing memory disturbance. Objective BP 142/79 (BP Site: Left Arm, BP Position: Sitting, BP Cuff Size: Regular Adult) Pulse (!) 55 Temp 36.3 ?C (97.4 ?F) (Left Tympanic) Resp 16 Wt 87.1 kg (192 lb) BMI 29.63 kg/m2 Physical Exam Constitutional: He appears well-nourished. Cardiovascular: Normal heart sounds. Exam reveals no gallop. No murmur heard. Pulmonary/Chest: Breath sounds normal. Abdominal: Soft. There is no tenderness. Musculoskeletal: He exhibits no edema. Neurological: He is alert. Coordination normal. Psychiatric: He has a normal mood and affect. Assessment and Plan ASSESSMENT/PLAN: 1. Atherosclerosis of coronary artery of [place] heart without angina pectoris, unspecified vessel or lesion type - ICD9: 414.01, ICD10: I25.10 (primary diagnosis) Stable. - CLOPIDOGREL 75 MG TABLET 2. Essential hypertension - ICD9: 401.9, ICD10: I10 - suboptimal control - Medications updated. 3. Hyperlipidemia, unspecified hyperlipidemia type - ICD9: 272.4, ICD10: E78.5 - good control 4. BPH with obstruction/lower urinary tract symptoms - ICD9: 600.01, 599.69, ICD10: N40.1, N13.8 - Discontinue TAMSULOSIN. - DOXAZOSIN 2 MG TABLET. New medication. Discussed medication dosage, usage, goals of therapy, and side effects. 5. Memory disturbance - ICD9: 780.93, ICD10: R41.3 Reevaluate next visit. MD Arie Smith MD 08/15/2017 8:46 AM Signed STOP TAMSULOSIN. NEW MEDICATION IS DOXAZOSIN. Referring Provider: SELF [[id number]] Allergies As of Date: 08/15/2017 Noted Allergy Reaction GAVISCON (ALUMINUM HYDROX-MAGNESI*03/13/2005 7 - Swelling Comments: FOREHEAD SWELLING Date Reviewed: 08/15/2017 Reviewed by: Millie Fontana LPN - Fully Assessed Reason for Visit: Prostate check [Other] Primary Visit Diagnosis:Atherosclerosis of coronary artery of [place] heart without angina pectoris, unspecified vessel or lesion type [I25.10] Other Visit Diagnoses:Essential hypertension [I10] Hyperlipidemia, unspecified hyperlipidemia type [E78.5] BPH with obstruction/lower urinary tract symptoms [N40.1, N13.8] Memory disturbance [R41.3] Order(s):doxazosin (CARDURA) 2 mg tabletTake 1 tablet by mouth daily at bedtime. For prostate.Disp: 30 tabletRfl: 5 Prescriptions as of 08/15/2017 Sig: CLOPIDOGREL 75 MG TABLET Take 75 mg by mouth once elvis* MULTIVITAMIN TABLET Take 1 tablet by mouth once d* ASPIRIN 81 MG TABLET,DELAYED * Take 1 tablet by mouth once d* METOPROLOL SUCCINATE ER 25 MG* Take 1 tablet by mouth once d* NITROGLYCERIN 0.4 MG SUBLINGU* Place one(1) tablet on tongue* ATORVASTATIN 80 MG TABLET Take 1 tablet by mouth daily * HYDROCHLOROTHIAZIDE 25 MG TAB* Take 1 tablet by mouth. hyper* LISINOPRIL 20 MG TABLET Take 1 tablet by mouth once d* DOXAZOSIN 2 MG TABLET Take 1 tablet by mouth daily * Medication notes this encounter HYDROCHLOROTHIAZIDE 12.5 MG CAPSULE >> Millie Fontana LPN 08/15/2017 8:10 AM >> MILLIE FONTANA LPN [place] Aug 15, 2017 8:10 AM Patient taking 1 tablet once daily. LISINOPRIL 30 MG TABLET >> Millie Fontana LPN 08/15/2017 8:11 AM >> MILLIE FONTANA LPN [place] Aug 15, 2017 8:11 AM Patient taking 20mg once daily. Problem List As Of Date 08/15/2017 Noted Resolved Coronary atherosclerosis [I25.10] INVALID FOR* AORTOCORONARY BYPASS STATUS [Z95.1] INVALID FOR* Essential hypertension [I10] INVALID FOR* Hyperlipidemia [E78.5] INVALID FOR* BPH with obstruction/lower urinary tract sympto*INVALID FOR* PAC (premature atrial contraction) [I49.1] INVALID FOR* PVC (premature ventricular contraction) [I49.3] INVALID FOR* Chronic bronchitis [J42] INVALID FOR* Non-STEMI (non-ST elevated myocardial infarctio*INVALID FOR* Status post insertion of drug-eluting stent int*INVALID FOR* Memory disturbance [R41.3] INVALID FOR* Other instructions from your clinician: STOP TAMSULOSIN. NEW MEDICATION IS DOXAZOSIN. Prescriptions ordered this encounter Disp Refills Start End DOXAZOSIN 2 MG TABLET 30 t* 5 08/15/2017 Route: ORAL Sig: Take 1 tablet by mouth daily at bedtime. For prostate. Medications Discontinued During This Encounter Lisinopril 30 mg tablet 30 t* 6 06/28/2016 08/15/2017 Cmt: Dose increase. Route: ORAL Sig: Take 1 tablet by mouth once daily. For hypertension. Disc: Reason for discontinue is not on file. Hydrochlorothiazide 12.5 mg capsule 06/28/2016 08/15/2017 Class: Historical Med Route: ORAL Sig: Take 25 mg by mouth once daily. For hypertension. Disc: Reason for discontinue is not on file. atorvastatin (LIPITOR) 10 mg ORAL Tab 30 5 12/25/2006 08/15/2017 Route: ORAL Sig: Take one(1) tablet daily. Disc: Reason for discontinue is not on file. Cosign accepted by ARIE TURNER MD[[id number]] on 12/26/2006 11:57 PM tamsulosin ER (FLOMAX) 0.4 mg cp24 90 c* 3 10/05/2016 08/15/2017 Route: ORAL Sig: Take 1 capsule by mouth once daily. Disc: Changing Therapy/Dosage Form Disposition: Return in about 3 months (around 11/15/2017). Follow-up and Disposition History Recorded Encounter Status:Closed by ARIE TURNER MD on 08/15/17 CARDIOLOGY VISIT Observed: 07/30/2017 Status: F Source: [place] REPORT 11:05 AM [facility] REPOSITORY [facility] [address] [place] [address] OFFICE VISIT Date of Service: 07/25/17 MR#: [id number] Acct: [id number] Name: DELMY DOW Rep #: [id number] : 1945 Provider: Rosanna Escobedo Age/Sex: 72/M Location: [facility] Status: Signed HPI HPI Details: DELMY DOW, is a 72 M who presents to the office today for a cardiovascular follow-up. He has a history of coronary artery disease with bypass surgery. He had an FARLEY to his LAD, diagonal to the LAD with redo graft to the RCA. He also underwent stenting of his LAD and diagonal in 2017. He also has a history of hypertension, hyperlipidemia and ventricular tachycardia. He does not have any chest discomfort/heaviness/tightness. His exercise tolerance is stable for his age. He does not have any worsening symptoms of shortness of breath. He denies any PND. He does not have any orthopnea. He does not have any symptoms of congestive heart failure. He does not have any palpitations that he is aware of. He does have positional lightheadedness, this is not new. He does not have any near- syncope or syncope. He does not have any lower extremity edema. He does not have any symptoms of claudication. 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: No Accompanied by: None Is patient in pain?: No Allergies alginic acid Adverse Reaction (Verified 07/25/17 14:09) Unknown aluminum hydroxide Adverse Reaction (Verified 07/25/17 14:09) Unknown cromolyn [From Gastrocrom] Adverse Reaction (Verified 07/25/17 14:09) Hives magnesium Adverse Reaction (Verified 07/25/17 14:09) Unknown Medications Aspirin 81 mg PO DAILY 08/06/16 [History Confirmed 07/22/17] Lisinopril [Zestril] 20 mg PO DAILY 08/06/16 [History Confirmed 07/22/17] Tamsulosin HCl [Flomax] 0.4 mg PO DAILY 08/06/16 [History Confirmed 07/22/17] Atorvastatin Calcium [Lipitor] 80 mg PO QHS #30 tab 08/08/16 [Rx Confirmed 07/22/17] hydrochlorothiazide 25 mg tablet 25 mg PO DAILY #90 tab 06/06/17 [Rx Confirmed 07/22/17] metoprolol succinate ER 25 mg tablet,extended release 24 hr 25 mg PO BID #90 tab 06/06/17 [Rx Confirmed 07/22/17] clopidogrel 75 mg tablet 75 mg PO QDAY tab 07/22/17 [History Confirmed 07/22/17] metoprolol succ 25 mg-hydrochlorothiazide 12.5 mg tablet,ext.rel 24 hr 1 tab PO QDAY tab 07/22/17 [History Confirmed 07/22/17] Ejection fraction %: 50 to 54 PFSH Medical History Atherosclerosis of coronary artery without angina pectoris (Chronic) 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 (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) Atherosclerosis of coronary artery bypass graft without angina pectoris (Chronic) Non-ST elevated myocardial infarction (Chronic) HTN (hypertension) (Chronic) HLD (hyperlipidemia) (Chronic) Atrial arrhythmia (Chronic) Carotid bruit (Chronic) Frequent ventricular premature beats (Chronic) Sinus bradycardia (Chronic) Surgical History S/P CABG x 3 (Chronic) S/P angioplasty with stent (Chronic) Family History Father Cancer Hypertension Mother Diabetes CHF (congestive heart failure) Brother Hypertension Sister Hypertension Other Family history of hypertension Social History Smoking Status: Former smoker how long ago did patient quit smokin alcohol intake: current alcohol intake frequency: 0-2 drinks per day Alcohol type: wine substance use type: does not use caffeine: Yes Type: coffee what type of physical activity do you participate in: walking frequency: daily duration: 30-45 minutes/day seatbelt use: always do you feel safe at home: Yes ROS Const Const: Negative for weakness, fatigue, fever(s) or headache(s) Eyes Eyes: Negative for blind spots, loss of peripheral vision or transient loss of vision ENT ENT: Positive for dizziness; negative for headache(s), tinnitus or Nosebleed/epistaxis Cardio Chest Pain: No Palpitations: No Edema: None Muscle aches with walking: None Resp Respiratory: Negative for SOB with activity, SOB at rest, SOB orthopnea\SOB lying down or Cough GI GI: Negative nausea, vomiting, heartburn or vomiting blood/hematemesis : Negative for hematuria Musc Musc: Positive for muscle aches/ myalgia Neuro Neuro: Positive for dizziness and lightheadedness; negative for weakness, headache(s), near syncope, syncope or orthostatic symptoms Beny Hematologic/Lymphatic: Negative for easy bleeding Endo Endo: Negative for fatigue Cardiology Exam Const Appearance: cooperative, no acute distress and well developed Orientation: alert, awake and oriented x3 Head Head: normocephalic and atraumatic Mouth: moist mucous membranes Eyes General: appearance normal, both eyes and all related structures Conjunctivae: conjunctivae normal Pupils: PERRL EOM: EOM intact bilaterally Neck Neck: normal visual inspection, no lymphadenopathy and no JVD Carotids: Negative bruit Neck Mass: Negative Neck mass Chest Chest inspection: normal inspection of the chest and symmetric chest movement Auscultation: Bilateral: Clear to Auscultation Cardio Palpation: normal PMI Rate: regular rate Rhythm: regular rhythm Heart sounds: S1 normal and S2 normal; negative rub, gallop or murmur GI GI: normal to inspection, soft, no hepatosplenomegaly and bowel sounds present; negative tender Neuro General: alert, awake, oriented x3, CN's II-XI intact bilaterally and moves all extremities Extremities Pulses: Normal: Right Posterior Tibial Pulse, Left Posterior Tibial Pulse, Right Radial Pulse, Left Radial Pulse Lower Extremity Edema: None: Bilateral Psych Psychological: normal affect Supplemental Info Echocardiogram in 2017 demonstrates normal LV size with an estimated ejection fraction of 50%. Mild to moderate segmental systolic dysfunction, RVSP 32 mmHg. Assessment AND Plan 1. Atherosclerosis of coronary artery bypass graft of [place] heart without angina pectoris I25.810 07/21/01, FARLEY to LAD, diagonal branch of anterior descending with radial artery grafting to RCA with stenting to LAD and Dx in 2017 Plan - LUIS FERNANDO Benavides Stable, from a cardiac standpoint patient does not have any symptoms of angina. We recommend that they continue with current aggressive medical management and risk factor modification. 2. Essential hypertension I10 Plan - LUIS FERNANDO Benavides Blood pressure is well controlled on current medications, we do not recommend any changes at this time. 3. Pure hypercholesterolemia E78.00; E78.0 Plan - LUIS FERNANDO Benavides Lipids are adequately controlled on current medications. Recent lipid profile demonstrates total cholesterol of 88, HDL 43, LDL 32. Will not make any adjustments Plan Detail Additional Comments - LUIS FERNANDO Benavides The above patient was discussed with Dr. Nunn, he agrees with plan of care. Thank you for allowing us to participate in patient's plan of care, if you have any questions please do not hesitate to call. This note was generated using a voice recognition system and there may be incorrect words, spelling or punctuation errors that were not noted when reviewing the office note prior to saving. Follow Up 9 Months (PFM) Coding Level of Care Code Off vis,est,level 3 Diagnoses Atherosclerosis of coronary artery bypass graft of [place] heart without angina pectoris I25.810 [place] vs. transplanted heart: [place] heart Essential hypertension I10 Hypertension type: essential hypertension Pure hypercholesterolemia E78.00; E78.0 Hyperlipidemia type: pure hypercholesterolemia Coding Level of Care Code Off vis,est,level 3 Diagnoses Atherosclerosis of coronary artery bypass graft of [place] heart without angina pectoris I25.810 [place] vs. transplanted heart: [place] heart Essential hypertension I10 Hypertension type: essential hypertension Pure hypercholesterolemia E78.00; E78.0 Hyperlipidemia type: pure hypercholesterolemia 07/26/17 0939 <Electronically signed by Rosanna GOULD> Date Rosanna GOULD 07/30/17 1105<Electronically signed by Rajesh Nunn MD> Cosigner Signature: Date (if applicable) Rajesh Nunn MD CC: Arie Turner MD LIVER PROFILE Collected: 07/29/2017 Status: F Source: [place] 8:50 AM [facility] REPOSITORY Order Comment: Order Date: 02/01/17 Order Info: [id number] - *Hepatic Function Panel Order Info: [id number] - *Lipid Profile CC PCP Comments: 12 hours fasting, may have water. TYPE CODE TESTS RESULT OUT OF RANGE REFERENCE UNITS LAB L501.1500 6.4-8.2 g/dL Normal T PROT 7.4 LAB L501.1800 3.2-5.0 g/dL Normal ALB 4.0 LAB L501.1950 2.2-4.2 g/dL Normal GLOB 3.4 LAB L501.4100 15-37 U/L Normal AST 18 LAB L501.4305 45-117 U/L Normal ALK P 92 LAB L501.4405 16-61 U/L Normal ALT 29 Result Comment: Please note revised ALT reference range effective 2017. LAB L501.4600 0.20-1.00 mg/dL Normal T BILI 0.90 LAB L501.4700 0.00-0.30 mg/dL Normal D BILI 0.17 Performed By: #### L500.3400 #### [facility] [address] [place], [address] LIPID PROFILE Collected: 07/29/2017 Status: F Source: [place] 8:50 AM [facility] REPOSITORY Order Comment: Order Date: 02/01/17 Order Info: [id number] - *Hepatic Function Panel Order Info: [id number] - *Lipid Profile CC PCP Comments: 12 hours fasting, may have water. TYPE CODE TESTS RESULT OUT OF RANGE REFERENCE UNITS LAB L501.4900 200 mg/dL Normal CHOL 84 Result Comment: <200 mg/dL Desirable 200-240 mg/dL Borderline >240 mg/dL High Risk LAB L501.5000 mg/dL Normal TRIG 62 Result Comment: The drugs N-Acetylcysteine and Metamizole may falsely depress this assay. Serum Triglycerides Reference Interval Normal <150 mg/dL Borderline high 150 - 199 mg/dL High 200 - 499 mg/dL Very High > or = 500 mg/dL LAB L501.6400 mg/dL Normal HDL 40 Result Comment: The drugs N-Acetylcysteine and Metamizole may falsely depress this assay. Reference Range HDL <40 mg/dL Low HDL Cholesterol HDL >or= 60 mg/dL High HDL Cholesterol LAB L501.6500 0-130 mg/dL Normal LDL 32 LAB L501.6600 5-40 mg/dL Normal VLDL 12 Performed By: #### L500.4100 #### [facility] [address] [place], [address] CNPN Observed: 07/16/2017 Status: COMPLETED Source: [place] 12:00 AM [facility] REPOSITORY Telephone (ASWSTR) DELMY DOW ([id number]) 1945 M Date Time Provider Department 07/16/17 ARIE TURNER ASWSTR During your visit today, we recorded the following information about you: Nakia Crabtree RN, RN 07/16/2017 12:44 PM Signed Pt due for screening colonoscopy. Not appropriate for OA d/t scanned cardiology document from 01/2017 reports pt is on Plavix. Please contact to schedule consult with PA or HOTEL NIGHT AUDITOR. ONOFRE Amador 07/17/2017 8:45 AM Signed 1st failed attempt to contact patient, no voicemail set up will try calling again at another time Melissa Peacock 07/19/2017 8:28 AM Signed 2nd failed attempt to contact patient, no voicemail set up will trying calling later Melissa Peacock 07/22/2017 9:27 AM Signed 3rd failed attempt to contact patient, no voicemail set up and no answer mailing colonoscopy letter Melissa Peacock Allergies As of Date: 07/16/2017 Noted Allergy Reaction GAVISCON (ALUMINUM HYDROX-MAGNESI*03/13/2005 7 - Swelling Comments: FOREHEAD SWELLING Date Reviewed: 06/28/2016 Reviewed by: Caitlin Chapa LPN - Fully Assessed Reason for Visit: Outpatient Colonoscopy [482] Prescriptions as of 07/16/2017 Sig: TAMSULOSIN 0.4 MG CAPSULE Take 1 capsule by mouth once * HYDROCHLOROTHIAZIDE 12.5 MG C* Take 1 capsule by mouth once * LISINOPRIL 30 MG TABLET Take 1 tablet by mouth once d* MULTIVITAMIN TABLET Take 1 tablet by mouth once d* ASPIRIN 81 MG TABLET,DELAYED * Take 1 tablet by mouth once d* METOPROLOL SUCCINATE ER 25 MG* Take 1 tablet by mouth once d* LIPITOR 10 MG TABLET Take one(1) tablet daily. NITROGLYCERIN 0.4 MG SUBLINGU* Place one(1) tablet on tongue* Problem List As Of Date 07/16/2017 Noted Resolved Coronary atherosclerosis [I25.10] INVALID FOR* AORTOCORONARY BYPASS STATUS [Z95.1] INVALID FOR* Essential hypertension [I10] INVALID FOR* Hyperlipidemia [E78.5] INVALID FOR* BPH with obstruction/lower urinary tract sympto*INVALID FOR* PAC (premature atrial contraction) [I49.1] INVALID FOR* PVC (premature ventricular contraction) [I49.3] INVALID FOR* Chronic bronchitis [J42] INVALID FOR* Non-STEMI (non-ST elevated myocardial infarctio*INVALID FOR* Status post insertion of drug-eluting stent int*INVALID FOR* Letter Text [address] [place] [address] 07/22/2017 Delmy Dow [id number] Dear Delmy , As your healthcare provider, our records indicate that you are due for colorectal cancer screening. This is extremely important if you have any family history of colon cancer as well as to the general population over the age of 50. A colonoscopy is a preventative test that we offer to complete this screening. Most insurances will pay for this test without any out of pocket expense to the patient. We have been unsuccessful in reaching you by phone to discuss this procedure. Please contact our schedulers at [phone] to schedule an appointment or contact your primary care physician if you have any questions regarding colon cancer screening. As always, your health is of primary concern to our practice. We look forward to hearing from you. Sincerely, [facility] Encounter Status:Closed by MELISSA PEACOCK on 07/22/17 PROGRESS Observed: 06/28/2017 Status: COMPLETED Source: [place] 11:56 AM [facility] REPOSITORY HNO ID: [id number] Author: Felecia Farias Cma Service: (none) Author Type: (none) Type: Progress Notes Filed: 06/28/2017 11:56 AM Note Text: Letter mailed to patient. PROGRESS Observed: 06/28/2017 Status: COMPLETED Source: [place] 11:54 AM [facility] REPOSITORY HNO ID: [id number] Author: Felecia Farias Cma Service: (none) Author Type: (none) Type: Progress Notes Filed: 06/28/2017 11:56 AM Note Text: Attempted to contact patient back in January, but no luck via phone. Never sent a letter so will attempt to send a letter in hopes patient will call us and respond. YELENA Observed: 06/28/2017 Status: COMPLETED Source: [place] 12:00 AM [facility] REPOSITORY Patient Outreach (FAMPWS) DELMY DOW ([id number]) 1945 M Date Time Provider Department 06/28/17 FELECIA FARIAS ([facility]) FAMPWS During your visit today, we recorded the following information about you: Felecia Farias Cma 06/28/2017 11:56 AM Signed Attempted to contact patient back in January, but no luck via phone. Never sent a letter so will attempt to send a letter in hopes patient will call us and respond. Felecia Farias Customer Experience Leader 06/28/2017 11:56 AM Signed Letter mailed to patient. Allergies As of Date: 06/28/2017 Noted Allergy Reaction GAVISCON (ALUMINUM HYDROX-MAGNESI*03/13/2005 7 - Swelling Comments: FOREHEAD SWELLING Date Reviewed: 06/28/2016 Reviewed by: Caitlin Chapa LPN - Fully Assessed Reason for Visit: PHMA/Care Gap Outreach [6574] Prescriptions as of 06/28/2017 Sig: TAMSULOSIN 0.4 MG CAPSULE Take 1 capsule by mouth once * HYDROCHLOROTHIAZIDE 12.5 MG C* Take 1 capsule by mouth once * LISINOPRIL 30 MG TABLET Take 1 tablet by mouth once d* MULTIVITAMIN TABLET Take 1 tablet by mouth once d* ASPIRIN 81 MG TABLET,DELAYED * Take 1 tablet by mouth once d* METOPROLOL SUCCINATE ER 25 MG* Take 1 tablet by mouth once d* LIPITOR 10 MG TABLET Take one(1) tablet daily. NITROGLYCERIN 0.4 MG SUBLINGU* Place one(1) tablet on tongue* Problem List As Of Date 06/28/2017 Noted Resolved Coronary atherosclerosis [I25.10] INVALID FOR* AORTOCORONARY BYPASS STATUS [Z95.1] INVALID FOR* Essential hypertension [I10] INVALID FOR* Hyperlipidemia [E78.5] INVALID FOR* BPH with obstruction/lower urinary tract sympto*INVALID FOR* PAC (premature atrial contraction) [I49.1] INVALID FOR* PVC (premature ventricular contraction) [I49.3] INVALID FOR* Chronic bronchitis [J42] INVALID FOR* Non-STEMI (non-ST elevated myocardial infarctio*INVALID FOR* Status post insertion of drug-eluting stent int*INVALID FOR* Letter Text Arie Turner MD [address] [address] Felecia Farias [facility], [employer] M.A. June 28, 2017 Delmy Dow [address] [facility] [place] [address] Dear Mr. Dow In an effort to serve your healthcare needs, it has come to the attention of Arie Turner MD, your Primary Care Provider, that you are overdue for routine health care. We've attempted to contact you and have been unsuccessful. Please call the office at [phone] to schedule an appointment for Physical. In addition, you are due for the following health maintenance(s) Health Maintenance Due: COLORECTAL CANCER SCREENING,SEE MODIFIER due on 09/26/2016 INFLUENZA(1) due on 01/25/2017 If any of these routine health care items were completed by an outside facility, please have that office fax the results to [phone] Attn: Arie Turner MD or bring the records with you to your appointment. We will gladly update your record. If you have any questions, please feel free to call the office at [phone] or message us via [employer]. Thank you for choosing the [facility]. Sincerely, Felecia Farias Cma, [facility] [employer] M.A. (electronically signed to expedite mailing) Encounter Status:Closed by FELECIA FARIAS CMA on 06/28/17 ALLERGIES ALLERGIES DATE TYPE / CODE NAME / CODE REACTION SEVERITY SOURCE 06/02/2018 Drug aluminum Unknown Unknown [place] [facility] All[facility]/416 hydroxide/F0060 Hospital 692302(SNOM 31289(RXNORM) Repository ED CT) 06/02/2018 Drug alginic Unknown Unknown [place] [facility] Allergy/416 acid/P019921591 Hospital 513569(SNOM (RXNORM) Repository ED CT) 06/02/2018 Drug magnesium/F0060 Unknown Unknown [place] [facility] Allergy/416 96965(RXNORM) Hospital 382973(SNOM Repository ED CT) 06/02/2018 Drug cromolyn/Z15258 Hives Unknown [place] [facility] Allergy/416 4808(RXNORM) Hospital 689428(SNOM Repository ED CT) 03/13/2005 DRUG/334465 ALUMINUM SWELLING Low [facility] 003(SNOMED HYDROX-MAGNESIU Main [facility] CT) M CARB Repository ENCOUNTERS ENCOUNTERS ADMIT/DISCHARGE ACCOUNT ADMITTING ENCOUNTER LOCATION SOURCE NUMBER CLASS 06/11/2018 [id number] Ambulatory [facility] ing:LAB Repository 06/10/2018 [id number] Ambulatory [facility] ing:[facility] Repository 06/02/2018/06/02/19 [id number] Ambulatory BMSBuilding:Tracy Cunha 19 [facility] Repository 05/21/2018 [id number] Ambulatory BMSBuilding:Tracy [place] [facility] Repository 04/08/2018/04/09/20 [id number] Ambulatory [address] Repository 12/28/2017/12/29/19 [id number] Ambulatory [address] Repository 11/30/2017/12/01/19 [id number] Ambulatory [address] Repository 11/22/2017/11/23/19 [id number] Ambulatory [address] Repository 11/20/2017/11/22/19 [id number] Ambulatory [address] Repository 08/15/2017/08/16/19 [id number] Ambulatory [address] Repository 07/29/2017 [id number] Ambulatory [place] [facility] ing:LAB Repository 07/25/2017/07/26/19 [id number] Ambulatory BMSBuilding:B [place] [address] [facility] Repository 07/25/2017 [id number] Ambulatory BMSBuilding:B [place] [facility] Repository PAYERS PAYERS ENCOUNTER GUARANTOR PAYER SUBSCRIBER SOURCE 06/11/2018 BROCK Primary BROCK [place] [id number] Insurance:MEDICARE MARSHALLDOB: Community [place] PART A [facility] [id number] Number: Repository [address]Afv: 330 [id number] [phone] () Date:2018-06-11 06/11/2018 Secondary BROCK [place] Insurance:AETNA SR [facility] SUPPLEMENT [facility] [id number] Hospital Number: Repository [id number] Date:0615-68-57YOFOF SENIOR SUPPLEMENT [address] [place] [address]DN: 06/11/2018 Tertiary NOT GIVENUNK [place] Insurance:SELF PAY [facility] Number: Effective Repository Date:2018-06-11 06/10/2018 BROCK Primary BROCK [place] [id number] Insurance:MEDICARE MARSHALLDOB: [facility] PART A [facility] [id number] Number: Repository [address]Nru: 330 [id number] [phone] () Date:2018-06-02 06/10/2018 Secondary BROCK [place] Insurance:AETNA SR MARSHALLDOB: Community SUPPLEMENT [facility] [id number] Hospital Number: Repository [id number] Date:0720-61-89BKOFO SENIOR SUPPLEMENT [address] [place] [address]QG: 06/10/2018 Tertiary NOT GIVENUNK [place] Insurance:SELF PAY [facility] Number: Effective Repository Date:2018-06-02 06/02/2018 BROCK Primary BROCK [place] [id number] Insurance:MEDICARE MARSHALLDOB: Community [place] PART A [facility] [id number], [place] Number: Repository [id number]: [phone] [id number] [phone] () Date:2017-07-25 06/02/2018 Secondary BROCK [place] Insurance:AETNA SR MARSHALLDOB: Community SUPPLEMENT INSP[facility]icy [id number] Hospital Number: Repository [id number] Date:0199-82-64AXLIY SENIOR SUPPLEMENT [address] [place] [address]KN: 06/02/2018 Tertiary NOT GIVENUNK [place] Insurance:SELF PAY [facility] Number: Effective Repository Date:2018-06-02 05/21/2018 BROCK Primary BROCK [place] [id number] Insurance:MEDICARE MARSHALLDOB: Community [place] PART A [facility] [id number], [place] Number: Repository [address]Vir: 330 [id number] [phone] () Date:2018-05-21 05/21/2018 Secondary BROCK [place] Insurance:AETNA SR MARSHALLDOB: Community [facility] [id number] Hospital Number: Repository [id number] Date:[id number] SENIOR SUPPLEMENT [address] [place] [address]EP: 05/21/2018 Tertiary NOT GIVENUNK [place] Insurance:SELF PAY [facility] Number: Effective Repository Date:2018-05-21 07/29/2017 BROCK Primary BROCK [place] [id number] Insurance:MEDICARE MARSHALLDOB: Community [place] PART A [facility] [id number], [place] Number: Repository [address]Knx: 330 [id number] [phone] () Date:2017-07-29 07/29/2017 Secondary BROCK [place] Insurance:AETNA SR MARSHALLDOB: Community SUPPLEMENT INSPolicy [id number] Hospital Number: Repository [id number] Date:8190-35-78LKURV SENIOR SUPPLEMENT [address] [address]FAG[place], [place] [address]XM: 07/29/2017 Tertiary NOT GIVENUNK [place] Insurance:SELF PAY [facility] Number: Effective Repository Date:2017-07-29 07/25/2017 BROCK Primary BROCK [place] [id number] Insurance:MEDICARE MARSHALLDOB: Community [place] PART A [facility] [id number] [facility] [place] Number: Repository [address]Gbl: 330 [id number] [phone] (HP) Date:2017-05-02 07/25/2017 Secondary BROCK [place] Insurance:AETNA SR MARSHALLDOB: Community SUPPLEMENT [facility] [id number] Hospital Number: Repository [id number] Date:9545-18-56UJYNN SENIOR SUPPLEMENT [address] [address]GZ[place]OM, [place] [address]VS: 07/25/2017 Tertiary NOT GIVENUNK [place] Insurance:SELF PAY [facility] Number: Effective Repository Date:2017-05-02 07/25/2017 Brock Primary Brock [place] [id number] Insurance:AETNA SR MarshallDOB: Community [place] SUPPLEMENT [facility] 3507-03-09[place] Number: Repository [address]Rwc: 330 [id number] [phone] (HP) Date:9727-77-20MUMBA SENIOR SUPPLEMENT [address] [address], [place] [address]TD: 07/25/2017 Secondary Brock [place] Insurance:MEDICARE MarshallDOB: Community PART A [facility] [id number] Hospital Number: Repository [id number] Date:2017-07-25 07/25/2017 Tertiary NOT GIVENUNK [place] Insurance:SELF PAY [facility] Number: Effective Repository Date:2017-07-25
== END ==
PROVIDERS: Family Provider Internal Medicine; PCP Internal Medicine; Referring Provider Internal Medicine Cardiovascular Disease; Visit Provider Internal Medicine Cardiovascular Disease
DX: E78.00 Pure hypercholesterolemia, unspecified (principal)
CPT/HCPCS: 36415; 80061; 80076

== ENCOUNTER → 2019-03-26 09:11 | Outpatient (CLI) | payer MEDICARE, OTHER, SELFPAY ==
[2016-08-06 14:55] VITALS: BMI 28.2
[2019-03-25 11:11] VITALS: BMI 28.6
[2019-03-26 11:17] LABS: AST(SGOT) 16 U/L (15-37); Alanine Aminotransfer ALT/SGPT 30 U/L (16-61); Albumin, Serum 3.7 g/dL (3.2-5.0); Alkaline Phosphatase 89 U/L (45-117); Bilirubin, Direct 0.22 mg/dL (0.00-0.30); Cholesterol 82 mg/dL (200); Globulin 3.2 g/dL (2.2-4.2); High Density Lipoprotein 44 mg/dL; Protein, Total 6.9 g/dL (6.4-8.2); Triglycerides 44 mg/dL; Very Low Density Lipoprotein 9 mg/dL (5-40)
== END ==
PROVIDERS: Family Provider Internal Medicine; PCP Internal Medicine; Referring Provider Internal Medicine Cardiovascular Disease; Visit Provider Internal Medicine Cardiovascular Disease
DX: E78.00 Pure hypercholesterolemia, unspecified (principal)
CPT/HCPCS: 36415; 80061; 80076

== ENCOUNTER → 2020-04-01 08:21 | Outpatient (CLI) | payer MEDICARE, OTHER, SELFPAY ==
[2016-08-06 14:55] VITALS: BMI 28.2
[2020-03-31 10:42] VITALS: BMI 29.0
[2020-04-01 10:08] LABS: AST(SGOT) 19 U/L (15-37); Alanine Aminotransfer ALT/SGPT 33 U/L (16-61); Albumin, Serum 3.9 g/dL (3.2-5.0); Alkaline Phosphatase 82 U/L (45-117); Bilirubin, Direct 0.34 mg/dL (0.00-0.30); Cholesterol 81 mg/dL (200); High Density Lipoprotein 44 mg/dL; Protein, Total 6.9 g/dL (6.4-8.2); Triglycerides 62 mg/dL; Very Low Density Lipoprotein 12 mg/dL (5-40)
== END ==
PROVIDERS: PCP Internal Medicine; Referring Provider Internal Medicine Cardiovascular Disease; Visit Provider Internal Medicine Cardiovascular Disease
DX: E78.00 Pure hypercholesterolemia, unspecified (principal)
CPT/HCPCS: 36415; 80061; 80076

== ENCOUNTER 2021-06-21 09:49 | Outpatient (CLI) | payer MEDICARE, SELFPAY ==
[2016-08-06 14:55] VITALS: BMI 28.2
[2021-06-21 11:23] LABS: AST(SGOT) 17 U/L (15-37); Alanine Aminotransfer ALT/SGPT 33 U/L (16-61); Albumin, Serum 3.6 g/dL (3.2-5.0); Alkaline Phosphatase 91 U/L (45-117); Bilirubin, Direct 0.32 mg/dL (0.00-0.30); Cholesterol 78 mg/dL (200); Globulin 3.5 g/dL (2.2-4.2); High Density Lipoprotein 31 mg/dL; Protein, Total 7.1 g/dL (6.4-8.2); Triglycerides 88 mg/dL; Very Low Density Lipoprotein 18 mg/dL (5-40)
== END 2021-06-21 23:59 | disposition short-term general hospital (02) ==
LOC: LAB 09:52
PROVIDERS: PCP Internal Medicine; Referring Provider Internal Medicine Cardiovascular Disease; Visit Provider Internal Medicine Cardiovascular Disease
DX: E78.00 Pure hypercholesterolemia, unspecified (principal)
CPT/HCPCS: 36415; 80061; 80076

== ENCOUNTER 2021-08-15 12:43 | Outpatient (CLI) | payer MEDICARE, SELFPAY ==
[2016-08-06 14:55] VITALS: BMI 28.2
--- NOTE | 2021-08-15 12:51 | ECHOD_ITS ---
Reason For Study: CAD/ASHD Procedure This was a 2D Doppler, Color Flow transthoracic echocardiogram. The study was technically difficult. Exam performed in department. Left Ventricle Based upon the 2D echocardiographic images obtained there appears to be grossly normal left ventricular size, wall motion, and systolic function. The estimated ejection fraction is 60 %. No evidence for diastolic dysfunction. Right Ventricle Normal RV size. A moderator band is seen in the right ventricle. Normal systolic function. Atria The left atrium is mildly enlarged. Normal right atrium. No doppler evidence for ASD. Mitral Valve There is no mitral annular calcification. Normal mitral valve. Trivial mitral valve insufficiency. Tricuspid Valve Normal tricuspid valve. Trivial tricuspid valve insufficiency. Right ventricular systolic pressure estimated to be 29 mmHg. Aortic Valve Trisinus/trileaflet aortic valve. Normal aortic valve. Pulmonic Valve The pulmonic valve is not well visualized. Trivial pulmonic valve insufficiency. Great Vessels Normal sized aortic root. Pericardium/Pleural No pericardial effusion. MMode/2D Measurements & Calculations LVIDd: 5.0 cm IVSd: 1.1 cm Ao root diam: 3.1 cm LVIDs: 3.5 cm LVPWd: 1.1 cm RVDd: 3.0 cm FS: 29.3 % LAV(MOD-bp): 59.3 ml LA A4 area: 19.0 cm2 LA dimension(2D): 4.9 cm LAV(MOD-bp) Indexed: 28.9 ml/m2 LAV(MOD-sp2): 57.1 ml LAV(MOD-sp4): 57.2 ml RA A4 area: 17.4 cm2 Time Measurements MV dec time: 0.25 sec Doppler Measurements & Calculations MV E max tino: 55.7 cm/sec Lat Peak E' Tino: 10.8 cm/sec Med Peak E' Tino: 7.5 cm/sec MV A max tino: 77.1 cm/sec E/E' lat: 5.2 E/E' med: 7.4 MV E/A: 0.72 Ao V2 max: 133.8 cm/sec LV V1 max: 85.5 cm/sec PA V2 max: 130.5 cm/sec Ao max P.2 mmHg LV V1 max P.9 mmHg TR max tino: 255.8 cm/sec TR max P.2 mmHg ECHO/Echo Complete Interpretation Summary The study was technically difficult. Based upon the 2D echocardiographic images obtained there appears to be grossly normal left ventricular size, wall motion, and systolic function. The estimated ejection fraction is 60 %. The left atrium is mildly enlarged. Trivial mitral valve insufficiency. Trivial tricuspid valve insufficiency. Trivial pulmonic valve insufficiency. Right ventricular systolic pressure estimated to be 29 mmHg. No evidence for diastolic dysfunction. A moderator band is seen in the right ventricle. Ordering Physician: Gerhard York Referring Physician: Trista Prajapati Performed By: Radha Singleton, DAYRON, RVT
== END 2021-08-15 23:59 | disposition home or self-care (01) ==
LOC: CVS 12:45
PROVIDERS: PCP Internal Medicine; Referring Provider Internal Medicine Cardiovascular Disease; Visit Provider Internal Medicine Cardiovascular Disease
DX: I25.10 Atherosclerotic heart disease of native coronary artery without angina pectoris (principal); Z95.1 Presence of aortocoronary bypass graft; Z95.5 Presence of coronary angioplasty implant and graft
CPT/HCPCS: 93306

== ENCOUNTER 2021-12-05 07:11 | Observation (INO) | payer MEDICARE, SELFPAY ==
[2016-08-06 14:55] VITALS: BMI 28.2
[2021-12-05] VITALS (7 sets, daily range): BP systolic 99–146; BP diastolic 51–81; PULSE 57–81; RESP 16–18; TEMP 35.8–36.8; O2SAT 94–98; BMI 26.6; BMI 29.2
--- NOTE | 2021-12-05 07:24 | ED.VIS.GI ---
HPI HPI - GI History of Present Illness Chief Complaint: Diarrhea Detail of Chief Complaint: Diarrhea x1 week Informant: patient and spouse/S.O. Narrative Narrative: Patient presents to the emergency department complaint of diarrhea for 1 week. Patient apparently is having about 3-4 bouts of explosive diarrhea daily. Patient generally weak and may be some slight confusion per . Patient currently being treated with oral chemotherapy for lung cancer. He is not been on antibiotics recently. He denies fever. He denies abdominal pain. There is been no vomiting. Denies cough or sore throat. Patient denies sick contacts. He denies feeling lightheaded or dizzy with standing and walking. [facility] Medical History Atherosclerosis of coronary artery bypass graft without angina pectoris Atherosclerotic heart disease of [place] coronary artery without angina pectoris Atrial arrhythmia Bilateral carotid bruits Chest pain Dizziness Dyspnea on exertion Essential hypertension Family history of hypertension Frequent ventricular premature beats HTN (hypertension) Lung cancer Lung nodule Non-ST elevated myocardial infarction Other snf (current) drug therapy Palpitations Presence of stent in coronary artery (~08/06/16) Pure hypercholesterolemia Sinus bradycardia Home Medications doxazosin 2 mg tablet 2 mg PO DAILY #30 tabs 01/14/20 [Rx Last Taken Unknown] aspirin 81 mg tablet,delayed release 81 mg PO DAILY #1 TAB 06/16/21 [Rx Last Taken Unknown] multivitamin 1 tab PO DAILY 06/16/21 [History Last Taken Unknown] atorvastatin 80 mg tablet 80 mg PO QHS #90 tabs 06/29/21 [Rx Last Taken Unknown] amlodipine 10 mg tablet 10 mg PO DAILY 12/01/21 [History Last Taken Unknown] clonidine HCl 0.1 mg tablet 0.1 mg PO BID 12/01/21 [History Last Taken Unknown] lisinopril 40 mg tablet 40 mg PO DAILY 12/01/21 [History Last Taken Unknown] metoprolol succinate 50 mg tablet,extended release 24 hr 50 mg PO DAILY 12/01/21 [History Last Taken Unknown] potassium chloride 20 mEq tablet,extended release 20 meq PO DAILY 12/01/21 [History Last Taken Unknown] Allergy/AdvReac Type Severity Reaction Status Date / Time alginic acid AdvReac Unknown Verified 12/05/21 07:12 aluminum hydroxide AdvReac Unknown Verified 12/05/21 07:12 cromolyn [From Gastrocrom] AdvReac Hives Verified 12/05/21 07:12 magnesium AdvReac Unknown Verified 12/05/21 07:12 Family History Father Cancer Hypertension Mother Diabetes CHF (congestive heart failure) Brother Hypertension Sister Hypertension Other Family history of hypertension Surgical History Presence of coronary angioplasty implant and graft (~08/06/16) S/P CABG x 3 (~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) Social History Smoking Status: Former smoker how long ago did patient quit smokin alcohol intake: current alcohol intake frequency: 0-2 drinks per day Alcohol type: wine substance use type: does not use caffeine: Yes Type: coffee what type of physical activity do you participate in: walking frequency: daily duration: 30-45 minutes/day seatbelt use: always do you feel safe at home: Yes ROS ROS ED Review of Systems ROS Unobtainable: other Constitutional Constitutional ED: Reports lethargy; Denies chills, fever(s), sweats or weight loss Eyes Eyes: Denies blurry vision, change in vision or diplopia ENT ENT ED: Denies rhinorrhea or sore throat Cardiovascular Cardiovascular: Denies chest pain, orthopnea or racing heartbeat Respiratory/Chest Respiratory/Chest: Reports dyspnea and dyspnea on exertion; Denies cough, orthopnea or sputum Gastrointestinal Gastrointestinal: Reports diarrhea; Denies abdominal pain, nausea or vomiting Genitourinary Genitourinary ED: Denies dysuria, hematuria or urinary frequency Musculoskeletal Musculoskeletal: Denies arthralgias, back pain, myalgias or neck pain Integumentary Denies abscess, Abrasions or rash Neurologic Neurologic: Denies headache(s) or weakness Psychiatric Psychiatric: Denies anxiety, depression or suicidal thoughts Endocrine Endocrinology: Denies polydipsia, polyphagia or polyuria Hematologic/Lymphatic Hematologic/Lymphatic: Denies easy bleeding, easy bruising or lymphadenopathy Allergic/Immunologic Allergic/Immunologic ED: Denies mouth swelling, tongue swelling or urticaria EXAM Physical Exam Const Vital Signs: 12/05/21 07:12 12/05/21 08:20 Temperature 97.7 F L Temperature Source Temporal Pulse Rate 64 Pulse Rate [Lying] 57 L Pulse Rate [Sitting (for 1 minute prior to obtaining)] 58 L Respiratory Rate 18 Blood Pressure 99/65 Blood Pressure [Lying] 124/74 H Blood Pressure [Sitting (for 1 minute prior to obtaining)] 135/79 H Blood Pressure Mean 76 Blood Pressure Mean [Lying] 90 Blood Pressure Mean [Sitting (for 1 minute prior to obtaining)] 97 Pulse Ox 95 Oxygen Delivery Method Room Air Positive well nourished and well developed General Appearance ED: well developed and NAD HEENT Reports TM's clear and moist mucous membranes normocephalic and atraumatic; Negative for trauma or tenderness Tympanic Membrane ED: Yes TM's clear Eyes PERRL and EOMs intact bilaterally General Eye ED: Negative for pale conjunctiva or scleral icterus Neck no lymphadenopathy, supple and no JVD General: Negative for tenderness Chest Wall inspection of chest normal and palpation of chest normal Chest: Negative for tenderness Resp normal respiratory effort and clear to auscultation bilaterally Effort and Inspection: Negative for respiratory distress or pain with movement Auscultation: Negative for rhonchi, wheezes or diminished lung sounds Cardio regular rate, regular rhythm, S1 normal heart sound, S2 normal heart sound and no murmurs Peripheral Pulses: pulses 2+ throughout GI normal to inspection, nondistended, normoactive bowel sounds, soft to palpation, non-tender, non-distended and no masses Back/Spine no CVA tenderness and no thoracic nor lumbar tenderness Extremity normal to inspection General Extremety ED: Negative for edema General Extremity: Negative for edema Neuro oriented x3, CN's II-XII intact bilaterally, no sensory deficits noted and gait normal Sensorium / Orientation: awake, alert, oriented to person, oriented to place and oriented to time Motor Exam: strength 5/5 throughout and strength abnormal Psych mental status grossly normal Skin no rashes or lesions noted and no wounds MDM MDM MDM Narrative Medical decision making narrative: IV line established on arrival. Patient lab work essentially unremarkable. He was not able to give a stool sample as of yet. Patient requiring significant assistance even sit up in bed due to his generalized weakness. I did order stool for enteric pathogens as well as C. difficile and those results will be pending patient given a sample. He was given a liter normal same fluid bolus. Case will be discussed with hospitalist evaluate patient for admission. Lab Data Attestation: I reviewed the patient's lab results. Labs: Laboratory Results - last 24 hr 12/05/21 12/05/21 12/05/21 07:26 07:26 07:26 WBC 9.8 RBC 4.98 Hgb 15.6 Hct 44.5 MCV 89.4 MCH 31.3 MCHC 35.1 RDW Std Deviation 46.5 H RDW Coeff of Amanda 14.2 Plt Count 288 MPV 9.7 Immature Gran % (Auto) 0.600 Neut % (Auto) 85.9 H Lymph % (Auto) 7.8 L [place] % (Auto) 4.2 Eos % (Auto) 1.2 Baso % (Auto) 0.3 Absolute Neuts (auto) 8.4 H Absolute Lymphs (auto) 0.76 L Nucleated RBC % 0 Sodium 134 L Potassium 3.9 Chloride 106 Carbon Dioxide 21.0 Anion Gap 7 BUN 18 Creatinine 1.00 Estim Creat Clear Calc 64.81 Est GFR (MDRD) Af Amer 94 Est GFR (MDRD) Non-Af 78 BUN/Creatinine Ratio 18.0 Glucose 120 H Lactic Acid 1.3 Calcium 8.3 L Total Bilirubin 1.10 H AST 39 H ALT 51 Alkaline Phosphatase 93 Total Protein 5.9 L Albumin 2.7 L Globulin 3.2 Albumin/Globulin Ratio 0.8 L Discharge Plan Triage Chief Complaint: Diarrhea Other Complaint: Weakness ED Provider: Chip Solis Dx/Rx/DC Orders Clinical Impression: Diarrhea, Weakness Prescriptions: No Action multivitamin Tablet 1 tab PO DAILY aspirin 81 mg tablet,delayed release (DR/EC) 81 mg PO DAILY Qty: 1 0RF clonidine HCl 0.1 mg tablet 0.1 mg PO BID potassium chloride 20 mEq tablet extended release 20 meq PO DAILY metoprolol succinate 50 mg tablet extended release 24 hr 50 mg PO DAILY lisinopril 40 mg tablet 40 mg PO DAILY amlodipine 10 mg tablet 10 mg PO DAILY doxazosin 2 mg tablet 2 mg PO DAILY Qty: 30 12RF atorvastatin 80 mg tablet 80 mg PO QHS Qty: 90 3RF Label Comments: lowers cholesterol Primary Care Provider: Trista Prajapati Referrals: Tritsa Prajapati MD [Primary Care Provider] - Disposition Disposition: Acute Care Hospital [facility]
[2021-12-05 07:40] LABS: Absolute Lymphocyte Count 0.76 X10^3/uL (0.83-4.51); Absolute Neutrophil Count 8.4 X10^3/uL (2.0-7.7); Basophil# 0.03 X10^3/uL; Basophil% 0.3 % (0-1); Eosinophil# 0.12 X10^3/uL; Eosinophils% 1.2 % (0-5); Hematocrit 44.5 % (40-54); Hemoglobin 15.6 g/dL (13.0-16.5); Lymphocyte # 0.76 X10^3/ul (0.83-4.51); Lymphocyte % 7.8 % (19-41); Mean Corp Hgb Conc 35.1 g/dL (32-36); Mean Corpuscular Hgb 31.3 pg (27.0-32.0); Mean Corpuscular Volume 89.4 fL (80-94); Mean Platelet Vol. 9.7 fl (6.2-12.0); Monocyte# 0.41 X10^3/uL; Monocyte% 4.2 % (0-10); NRBC Flagged by Analyzer 0 % (0-5); Neutrophil % 85.9 % (47-70); Platelet Count 288 K/mm3 (150-450); RBC Distribution Width CV 14.2 % (11.6-14.6); RBC Distribution Width SD 46.5 fl (35.1-43.9); Red Blood Count 4.98 M/mm3 (4.6-6.2); White Blood Count 9.8 K/mm3 (4.4-11.0)
[2021-12-05] MEDS: 0.9% Normal Saline 1,000 ML 1000 ML IV (07:43)
[2021-12-05 07:53] LABS: ALB/GLOB Ratio 0.8 RATIO (0.9-2.4); AST(SGOT) 39 U/L (15-37); Alanine Aminotransfer ALT/SGPT 51 U/L (16-61); Albumin, Serum 2.7 g/dL (3.2-5.0); Alkaline Phosphatase 93 U/L (45-117); Anion Gap 7 (5-15); BUN 18 mg/dL (7-18); Calcium,Total 8.3 mg/dL (8.5-10.1); Chloride 106 mmol/L (98-107); EST Glomerular Filtration Rate 78 mL/min (>60); Est Glom Filt Rate - Afr Amer 94 mL/min (>60); Estimated Creatinine Clearance 64.81 ml/min; Globulin 3.2 g/dL (2.2-4.2); Glucose 120 mg/dL (74-106); Potassium 3.9 mmol/L (3.5-5.1); Protein, Total 5.9 g/dL (6.4-8.2); Sodium Level 134 mmol/L (136-145)
[2021-12-05 08:02] LABS: Lactic Acid 1.3 mmol/L (0.4-1.9)
--- NOTE | 2021-12-05 08:26 | ED.RN ---
PT WAS UNABLE TO ASSIST MUCH WITH SITTING UP IN BED FOR ORTHOSTATICS. PT STATES HE IS TOO WEAK
--- NOTE | 2021-12-05 09:09 | HP.PCM.HOS_ITS ---
HPI - General General Date of Admission: 12/05/21 Date of Service: 12/05/21 Chief Complaint: Diarrhea, generalized weakness HPI Narrative DELMY BELTRE, is a 76 M who presents to the emergency room at [facility] with complaints of diarrhea and generalized weakness over the last 3 days. Patient is taking chemotherapy (oral chemotherapy) for non-small cell lung cancer which is metastatic to the bone and adrenal. Patient states that he was diagnosed with this about 3 months ago, he is on a medication called Retebmo-I have verified this with covering for the patient's physician Dr. Weinstein. I was told by Dr. Coelho that there is a 37% incidence of diarrhea with the medication. Patient denies any recent antibiotic usage. I talked at length with his who was in the room at the time my examination. Patient's labs do not reflect that the patient is dehydrated although clinically the patient's mucous membranes look dry. He required maximal assistance to get up and out of his bed in the ER. After discussion with the and the patient, I felt that it is appropriate to place the patient in observation status, give him IV fluids, and have PT and OT see him, and obtain stool for enteric pathogens and C. difficile. Patient will stop his chemo medication until he follows up with Dr. Weinstein in the office after his discharge from the hospital here. Patient will be placed in observation status on MedSur 3. [facility] Medical History Atherosclerosis of coronary artery bypass graft without angina pectoris Atherosclerotic heart disease of [place] coronary artery without angina pectoris Atrial arrhythmia Bilateral carotid bruits Chest pain Dizziness Dyspnea on exertion Essential hypertension Family history of hypertension Frequent ventricular premature beats HTN (hypertension) Lung cancer Lung nodule Non-ST elevated myocardial infarction Other [facility] (current) drug therapy Palpitations Presence of stent in coronary artery (~08/06/16) Pure hypercholesterolemia Sinus bradycardia Home Medications doxazosin 2 mg tablet 2 mg PO DAILY #30 tabs 01/14/20 [Rx Last Taken Unknown] aspirin 81 mg tablet,delayed release 81 mg PO DAILY #1 TAB 06/16/21 [Rx Last Taken Unknown] multivitamin 1 tab PO DAILY 06/16/21 [History Last Taken Unknown] atorvastatin 80 mg tablet 80 mg PO QHS #90 tabs 06/29/21 [Rx Last Taken Unknown] amlodipine 10 mg tablet 10 mg PO DAILY 12/01/21 [History Last Taken Unknown] clonidine HCl 0.1 mg tablet 0.1 mg PO BID 12/01/21 [History Last Taken Unknown] lisinopril 40 mg tablet 40 mg PO DAILY 12/01/21 [History Last Taken Unknown] metoprolol succinate 50 mg tablet,extended release 24 hr 50 mg PO DAILY 12/01/21 [History Last Taken Unknown] potassium chloride 20 mEq tablet,extended release 20 meq PO DAILY 12/01/21 [History Last Taken Unknown] Allergy/AdvReac Type Severity Reaction Status Date / Time alginic acid AdvReac Unknown Verified 12/05/21 07:12 aluminum hydroxide AdvReac Unknown Verified 12/05/21 07:12 cromolyn [From Gastrocrom] AdvReac Hives Verified 12/05/21 07:12 magnesium AdvReac Unknown Verified 12/05/21 07:12 Family History Father Cancer Hypertension Mother Diabetes CHF (congestive heart failure) Brother Hypertension Sister Hypertension Other Family history of hypertension Surgical History Presence of coronary angioplasty implant and graft (~08/06/16) S/P CABG x 3 (~07/22/01) Social History Smoking Status: Former smoker how long ago did patient quit smokin alcohol intake: current alcohol intake frequency: 0-2 drinks per day Alcohol type: wine substance use type: does not use caffeine: Yes Type: coffee what type of physical activity do you participate in: walking frequency: daily duration: 30-45 minutes/day seatbelt use: always do you feel safe at home: Yes ROS Constitutional Constitutional: Reports fatigue and weakness; Denies anorexia, change in weight, chills, fever(s) or night sweats Eyes Eyes: Denies blurry vision, change in vision, discharge from eye(s) or eye pain ENT HEENT: Denies dysphagia, headache(s) or nasal congestion Cardiovascular Cardiovascular: Denies chest pain, claudication, edema or palpitations Respiratory/Chest Respiratory/Chest: Denies cough, dyspnea, excessive phlegm production, hemoptysis, productive cough, shortness of breath at rest or shortness of breath with exertion Gastrointestinal Gastrointestinal: Denies abdominal pain, coffee ground emesis, constipation, diarrhea, dyspepsia, hematemesis, hematochezia, melena, nausea or vomiting Genitourinary Genitourinary: Denies burning urination, difficulty urinating, dysuria, hematuria, urinary frequency, urinary hesitancy, urinary incontinence or urinary urgency Musculoskeletal Musculoskeletal: Denies back pain, joint pain, joint stiffness, joint swelling, myalgias or neck pain Neurologic Neurologic: Denies abnormal gait, abnormal speech, confusion, disequilibrium, dizziness, focal weakness, headache(s), loss of vision, numbness, other visual disturbances, paresthesias, syncope or tingling Psychiatric Psychiatric: Denies anxiety, cognitive impairment, depression, irritability, mood swings or suicidal ideation Endocrine Endocrinology: Denies change in body appearance, cold intolerance, excessive sweating, heat intolerance, polydipsia or polyuria Hematologic/Lymphatic Hematologic/Lymphatic: Denies none, anemia, easy bleeding, easy bruising or lymphadenopathy Allergic/Immunologic Allergic/Immunologic: Denies rhinitis, urticaria, eczemia or asthma Vital Signs Vital Signs Vital Signs: 12/05/21 07:12 12/05/21 08:20 12/05/21 09:07 Temperature 97.7 F L 97.6 F L Temperature Source Temporal Temporal Pulse Rate 64 57 L Pulse Rate [Lying] 57 L Pulse Rate [Sitting (for 1 minute prior to obtaining)] 58 L Respiratory Rate 18 16 Blood Pressure 99/65 138/77 H Blood Pressure [Lying] 124/74 H Blood Pressure [Sitting (for 1 minute prior to obtaining)] 135/79 H Blood Pressure Mean 76 97 Blood Pressure Mean [Lying] 90 Blood Pressure Mean [Sitting (for 1 minute prior to obtaining)] 97 Pulse Ox 95 97 Oxygen Delivery Method Room Air Room Air Weight Weight: 81.647 kg Body Mass Index (BMI) 26.6 Physical Exam Const alert, oriented x3, no apparent distress and average body habitus General Appearance: cooperative, well kempt and well developed Orientation / Consciousness: awake, oriented to person, oriented to place and oriented to time HEENT normocephalic and head/scalp atraumatic HEENT Narrative: Mucous membranes appear dry Eyes PERRL, EOMs intact bilaterally and conjunctivae normal Neck nuchal rigidity, supple, no JVD, thyroid normal and no carotid bruits General: trachea midline Resp normal respiratory effort, no retractions, no use of accessory muscles and clear to auscultation bilaterally Auscultation: Negative for rales, rhonchi or wheezes Cardio regular rate, regular rhythm, S1 normal heart sound, S2 normal heart sound, no murmurs, no rub and no gallops GI normal to inspection, nondistended, normoactive bowel sounds, soft to palpation, non-tender and non-distended Extremity normal to inspection and no clubbing, cyanosis or edema Skin no rashes or lesions noted General Skin Exam: no breakdown Neuro oriented x3, CN's II-XII intact bilaterally, no focal motor deficits and no sensory deficits noted Sensorium / Orientation: awake and alert Speech: speech normal Psych affect normal Results Lab / Micro Data Result Diagrams: 12/05/21 07:12/05/21 07:26 Labs: Laboratory Results - last 24 hr 12/05/21 07:26: WBC 9.8, RBC 4.98, Hgb 15.6, Hct 44.5, MCV 89.4, MCH 31.3, MCHC 35.1, RDW Std Deviation 46.5 H, RDW Coeff of [place] 14.2, Plt Count 288, MPV 9.7, Immature Gran % (Auto) 0.600, Neut % (Auto) 85.9 H, Lymph % (Auto) 7.8 L, [place] % (Auto) 4.2, Eos % (Auto) 1.2, Baso % (Auto) 0.3, Absolute Neuts (auto) 8.4 H, Absolute Lymphs (auto) 0.76 L, Nucleated RBC % 0 12/05/21 07:26: Sodium 134 L, Potassium 3.9, Chloride 106, Carbon Dioxide 21.0, Anion Gap 7, BUN 18, Creatinine 1.00, Estim Creat Clear Calc 64.81, Est GFR (MDRD) Af Amer 94, Est GFR (MDRD) Non-Af 78, BUN/Creatinine Ratio 18.0, Glucose 120 H, Calcium 8.3 L, Total Bilirubin 1.10 H, AST 39 H, ALT 51, Alkaline Phosphatase 93, Total Protein 5.9 L, Albumin 2.7 L, Globulin 3.2, Albumin/Globulin Ratio 0.8 L 12/05/21 07:26: Lactic Acid 1.3 Assessment & Plan Assessment/Plan (1) Diarrhea: PLAN: Plan 1. Generalized weakness-secondary to persistent diarrhea-patient will be placed in observation status on MedSurg 3, IV fluids will be administered, stool will be obtained for enteric pathogens and C. difficile. Patient's chemo medication will be held. #2 persistent diarrhea-etiology unclear at this point, could be secondary to side effects from oral chemotherapy, again stool will be obtained for enteric pathogens and C. difficile, IV fluids will be administered, PT and OT will see the patient, patient's chemotherapy medication will be held #3 hyperlipidemia-due to the patient being in observation status, his statin will be held #4 essential hypertension-I have elected to hold some of the patient's blood pressure medications, he initially his blood pressure was low in the ER but after administration some fluids came up and at the time of my examination, his systolic blood pressure was 115. #5 coronary artery disease-patient will remain on some of his medications from home, his other medications will be held due to his observation status. Charges/Coding Visit Charges OBSV E&M: 12275 Initial observation care L3
[2021-12-05] MEDS: 0.9% Normal Saline 1,000 ML 125 ML IV (09:50)
[2021-12-05] MEDS: cloNIDine HCl 0.1 MG Tablet PO ×2 (09:55→21:49)
[2021-12-05] MEDS: Loperamide 2 MG Capsule PO ×3 (09:56→21:50)
[2021-12-05] MEDS: Doxazosin 1 MG Tablet 2 MG PO (09:56)
[2021-12-05] MEDS: Metoprolol(XL)Succ 50 MG Tablet PO (09:56)
[2021-12-05] MEDS: Enoxaparin 40 MG/0.4 ML Syringe SC (09:56)
[2021-12-05] MEDS: Aspirin E.C. 81 MG Tablet PO (09:56)
--- NOTE | 2021-12-05 11:53 | NURSING ---
pt confused, pulled iv out and found up in room. pt does not reorient.
[2021-12-05] MEDS: NYSTATIN 500,000 UNIT/5 ML UDC 500000 UNIT PO (14:56)
[2021-12-05] MEDS: LORazepam 1 MG Tablet 2 MG PO (17:48)
--- NOTE | 2021-12-05 18:38 | MRI_ITS ---
STUDY: MRI BRAIN WITH AND WITHOUT CONTRAST REASON FOR EXAM: Male, 76 years old. confusion, history of metastatic lung cancer TECHNIQUE: Standardized multiplanar fat and water weighted pulse sequences were obtained. IV 18mL DOTAREM was administered for the contrast portion of the examination. COMPARISON: None. FINDINGS: No intracranial mass, mass effect or midline shift. No enhancing lesion. No hemorrhage, territorial infarct, or acute ischemia. There is mild cerebral atrophy with widening of the extra-axial spaces and ventricular dilatation. There are a limited number of small white matter hyperintensities, distributed throughout the deep white matter tracts of the cerebral hemispheres, consistent with mild chronic white matter ischemic changes. Normal bilateral basal ganglia. Normal thalami. There is no extra-axial fluid accumulation. Normal flow voids within the major intracranial circulation suggesting patency by spin echo criteria. There is no enhancing intra-axial or extra-axial abnormality. Normal sella turcica, pituitary gland, infundibular stalk, optic chiasm and hypothalamus. There are chronic white matter ischemic changes of the robbie. The midbrain and medulla are otherwise normal. Normal cerebellum. Normal basal cisterns. Normal bilateral temporal bones. Normal bilateral internal auditory canals. Mild mucosal thickening in the left maxillary sinus. Normal calvarium and skull base. Normal visualized soft tissue structures. MRI/Brain W/WO Contrast IMPRESSION: No acute findings. No evidence of metastatic disease. Mild chronic microvascular ischemic changes. Electronically Signed: Anne Garay MD at 20:52 EDT Reading Location ID and State: [id number] / Tel , Service support ,
[2021-12-05] MEDS: Temazepam 15 MG Capsule PO (21:50)
[2021-12-06 02:00] VITALS: O2SAT 97
[2021-12-06 02:08] VITALS: BP 108/72; PULSE 65; RESP 16; TEMP 36.7; O2SAT 97
[2021-12-06 05:21] LABS: Absolute Lymphocyte Count 0.66 X10^3/uL (0.83-4.51); Absolute Neutrophil Count 4.7 X10^3/uL (2.0-7.7); Basophil# 0.01 X10^3/uL; Basophil% 0.2 % (0-1); Eosinophil# 0.12 X10^3/uL; Hematocrit 38.6 % (40-54); Hemoglobin 13.2 g/dL (13.0-16.5); Lymphocyte # 0.66 X10^3/ul (0.83-4.51); Lymphocyte % 11.3 % (19-41); Mean Corp Hgb Conc 34.2 g/dL (32-36); Mean Corpuscular Hgb 31.1 pg (27.0-32.0); Mean Platelet Vol. 9.6 fl (6.2-12.0); Monocyte# 0.33 X10^3/uL; Monocyte% 5.6 % (0-10); NRBC Flagged by Analyzer 0 % (0-5); Neutrophil # 4.72 X10^3/uL (2.7-7.7); Neutrophil % 80.6 % (47-70); Platelet Count 234 K/mm3 (150-450); Red Blood Count 4.24 M/mm3 (4.6-6.2); White Blood Count 5.9 K/mm3 (4.4-11.0)
[2021-12-06 05:43] LABS: Anion Gap 6 (5-15); BUN 17 mg/dL (7-18); BUN/Creat Ratio 26.2 RATIO (10-20); Calcium,Total 7.7 mg/dL (8.5-10.1); Chloride 108 mmol/L (98-107); Creatinine, Serum 0.65 mg/dL (0.70-1.30); EST Glomerular Filtration Rate 127 mL/min (>60); Est Glom Filt Rate - Afr Amer 154 mL/min (>60); Estimated Creatinine Clearance 64.81 ml/min; Glucose 99 mg/dL (74-106); Potassium 3.9 mmol/L (3.5-5.1); Sodium Level 135 mmol/L (136-145)
[2021-12-06 11:25] VITALS: BP 123/75; PULSE 66; RESP 16; TEMP 36.8; O2SAT 98
[2021-12-06 11:29] VITALS: RESP 18
[2021-12-06 11:42] VITALS: PULSE 66
[2021-12-06] MEDS: Metoprolol(XL)Succ 50 MG Tablet PO (11:42)
[2021-12-06] MEDS: Doxazosin 1 MG Tablet 2 MG PO (11:42)
[2021-12-06] MEDS: Aspirin E.C. 81 MG Tablet PO (11:42)
[2021-12-06] MEDS: Enoxaparin 40 MG/0.4 ML Syringe SC (11:43)
[2021-12-06] MEDS: cloNIDine HCl 0.1 MG Tablet PO (11:49)
[2021-12-06] MEDS: Loperamide 2 MG Capsule PO ×2 (11:49→16:28)
[2021-12-06] MEDS: NYSTATIN 500,000 UNIT/5 ML UDC 500000 UNIT PO ×3 (11:49→16:32)
--- NOTE | 2021-12-06 12:14 | CASEMGMT ---
ONOFRE AMBRIZ in to discuss SCHULTZ form with patient and patient . ONOFRE AMBRIZ explained SCHULTZ form, patient voiced understanding. Pt signed form and filed in chart. Pt and provided with a copy of signed SCHULTZ form. Patient's states that patient had been independent prior to hospitalization as far as bathing and dressing up until the day of. Patient then became weak due to diarrhea. Patient's granddaughter and her live with patient and are able to help care for him. Patient's states she is there 17/12 with him and feels that she would like patient to return home. She denies any homegoing needs or services at this time. Patient did not speak during conversation. Nurse in room as well. Patient and had no further questions or concerns at this time.
[2021-12-06 14:28] VITALS: BP 124/83; PULSE 63; RESP 16; TEMP 36.6; O2SAT 97
--- NOTE | 2021-12-06 19:27 | PN.HOSP_ITS ---
Subjective Subjective Patient was seen and examined today, an enteric stool panel came back negative on the patient, unfortunately there was not enough stool to do a C. difficile test. Patient became belligerent with the patient's this afternoon (verbally) and was obviously confused. Patient's MRI yesterday did not show evidence of cerebrovascular disease including no evidence of an acute stroke. Patient's did not feel comfortable taking the patient home today due to his mental status, I briefly discussed that we should get PT and OT to see the patient and perhaps he could go to an extended care facility for short-term rehab services if it was necessary. Objective Data Objective Data Vital Signs: Vital Signs Temp Pulse Resp BP Pulse Ox O2 Del Method 97.8 F 63 16 124/83 H 97 Room Air 12/06/21 14:28 12/06/21 14:28 12/06/21 14:28 12/06/21 14:28 12/06/21 14:28 12/06/21 14:28 Oxygen Delivery Method Room Air Weight: 89.63 kg Body Mass Index (BMI) 29.2 Intake & Output: Intake and Output for Last 24 Hours 12/04/21 12/05/21 12/06/21 23:59 23:59 23:59 Intake Total 400 / 400 Balance 400 / 400 Lab / Micro Data Result Diagrams: 12/06/21 05:02 12/06/21 05:02 Labs: Laboratory Results - last 24 hr 12/06/21 05:02: WBC 5.9, RBC 4.24 L, Hgb 13.2, Hct 38.6 L, MCV 91.0, MCH 31.1, MCHC 34.2, RDW Std Deviation 47.0 H, RDW Coeff of Amanda 14.0, Plt Count 234, MPV 9.6, Immature Gran % (Auto) 0.300, Neut % (Auto) 80.6 H, Lymph % (Auto) 11.3 L, Caldwell % (Auto) 5.6, Eos % (Auto) 2.0, Baso % (Auto) 0.2, Absolute Neuts (auto) 4.7, Absolute Lymphs (auto) 0.66 L, Nucleated RBC % 0 12/06/21 05:02: Sodium 135 L, Potassium 3.9, Chloride 108 H, Carbon Dioxide 21.0, Anion Gap 6, BUN 17, Creatinine 0.65 L, Estim Creat Clear Calc 64.81, Est GFR (MDRD) Af Amer 154, Est GFR (MDRD) Non-Af 127, BUN/Creatinine Ratio 26.2 H, Glucose 99, Calcium 7.7 L 12/06/21 08:55: Ammonia 29.0 Micro: Microbiology 12/06/21 10:55 Stool Enteric Bacteriology - Final Radiography Diagnostic Testing: Radiology Impression Brain MRI 12/05/21 18:38 IMPRESSION: No acute findings. No evidence of metastatic disease. Mild chronic microvascular ischemic changes. Electronically Signed: Anne Garay MD at 20:52 EDT Reading Location ID and State: [id number] / Tel , Service support , Physical Exam Const alert and no apparent distress Constitutional Narrative: Patient is alert but confused, he does not know he is in the hospital General Appearance: cooperative, well kempt and well developed Orientation / Consciousness: confused HEENT head/scalp atraumatic and moist oral mucous membranes Eyes PERRL, EOMs intact bilaterally and conjunctivae normal Neck supple and no JVD General: trachea midline Resp normal respiratory effort, no retractions, no use of accessory muscles and clear to auscultation bilaterally Auscultation: Negative for rales, rhonchi or wheezes Cardio regular rate, regular rhythm, S1 normal heart sound, S2 normal heart sound and no murmurs GI normal to inspection, nondistended, normoactive bowel sounds, soft to palpation, non-tender and non-distended Extremity normal to inspection and no clubbing, cyanosis or edema Skin no rashes or lesions noted General Skin Exam: no breakdown Neuro CN's II-XII intact bilaterally, moves all extremities, no focal motor deficits and no sensory deficits noted Neuro Narrative: Patient is alert but confused Sensorium / Orientation: awake and alert Speech: speech normal Psych affect normal Psych Narrative: Patient is alert, he has obvious cognitive impairment, he is confused Assessment & Plan Assessment/Plan (1) Diarrhea: PLAN: Plan 1. Generalized weakness-secondary to persistent diarrhea-we will continue to see PT and OT, he may need temporary placement in a longterm facility #2 persistent diarrhea-etiology unclear at this point, could be secondary to side effects from oral chemotherapy, I think it is unlikely the patient has C. difficile, I will continue the patient on Imodium #3 hyperlipidemia-patient's statin has been held at this time #4 essential hypertension-patient's blood pressure appears to be under adequate control on his present medication #5 coronary artery disease-patient will remain on some of his medications from home, his other medications will be held due to his observation status. #6 encephalopathy-I believe this is probably secondary to undiagnosed dementia, patient's told me yesterday that he has had increasing confusion over the last few weeks and that his short-term memory over the last few months has been very poor. Nursing will continue to work with the patient as well as PT and OT. I got an ammonia level on the patient today, it was 29. #7 metastatic non-small cell lung cancer-there is no evidence of any metastatic spread to the brain at this time. Charges/Coding Visit Charges OBSV E&M: 04877 Subsequent observation care L3
--- NOTE | 2021-12-06 21:02 | NURSING ---
Addendum entered by Luis Love 12/06/21 21:05: Pt also refused assessment and medications at this time. Original Note: pt refused vital signs
--- NOTE | 2021-12-07 06:16 | NURSING ---
pt refused vitals, meds and assessment this am.
[2021-12-07 09:02] VITALS: BP 118/81; PULSE 79; RESP 16; TEMP 36.4; O2SAT 97
[2021-12-07 09:26] VITALS: PULSE 79
[2021-12-07] MEDS: NYSTATIN 500,000 UNIT/5 ML UDC 500000 UNIT PO (09:26)
[2021-12-07] MEDS: Metoprolol(XL)Succ 50 MG Tablet PO (09:26)
[2021-12-07] MEDS: Enoxaparin 40 MG/0.4 ML Syringe SC (09:26)
[2021-12-07] MEDS: Doxazosin 1 MG Tablet 2 MG PO (09:27)
[2021-12-07] MEDS: cloNIDine HCl 0.1 MG Tablet PO (09:27)
[2021-12-07] MEDS: Aspirin E.C. 81 MG Tablet PO (09:27)
[2021-12-07] MEDS: Loperamide 2 MG Capsule PO (09:30)
--- NOTE | 2021-12-07 12:54 | CASEMGMT ---
Social Work SW met with pt, pt's Irina and pt's niece. Extensive conversation regarding discharge plans and pt's deteriorating cognition. Emotional support provided to pt as she explains pt's forgetfulness and paranoia. Pt is walking well with therapy and not requiring a skilled level of care. SW explained this to pt and also discussed memory care units, assisted livings and nursing facilities. SW provided written information on both and discussed pt financial liability at a facility. SW explored option of Medicaid, and pt would not qualify at this time. Pt choosing to take pt home and is aware that he will need 24 hour supervision and states she can provide this. Pt niece inquiring about hospice care and SW explained that hospice program and provided written information. Physician updated on discharge plan and pt will be discharged today. Pt is aware of plan for discharge and agreeable. REAL Hoang
--- NOTE | 2021-12-07 13:18 | DCINST_ITS ---
Discharge Instructions Diet Discharge Diet: No restrictions Activity Discharge Activity: Return to Normal Activity Weight Bearing Status: Full weight bearing Additional Activity Instructions:: no driving Follow Up Care Test Results: Test results from this visit will be discussed in further detail at your follow- up appointment, if applicable. Discharge Plan Admission Admit Date/Time: 12/05/21 09:16 Primary Reason for Your Visit: diarrhea Attending Provider: Vincenzo Lira Primary Care Provider: Trista Prajapati Discharge Orders/Prescriptions Prescriptions: New nystatin 100,000 unit/mL Suspension 500,000 unit PO 4X/DAY Qty: 0 0RF doxazosin 1 mg Tablet 2 mg PO DAILY Qty: 0 0RF aspirin 81 mg Tablet,Delayed Release (Dr/Ec) 81 mg PO DAILY Qty: 0 0RF donepezil [Aricept] 5 mg tablet 5 mg PO QHS Qty: 60 0RF Rx Instructions: one at bedtime for ten days, then two at bedtime thereafter quetiapine [Seroquel] 25 mg tablet 25 mg PO QHS Qty: 30 0RF Rx Instructions: 1/2 -1 at bedtime if needed for sleep memantine [Namenda] 5 mg tablet 5 mg PO BID Qty: 60 0RF loperamide [Imodium A-D] 2 mg tablet 2 - 4 mg PO Q4H PRN (Reason: loose stool) Qty: 30 0RF Rx Instructions: administer after each loose stool until symptoms controlled; do not exceed 8 mg per 24 hrs nystatin 100,000 unit/mL suspension 200,000 unit buccal .QID Qty: 60 0RF Rx Instructions: administer 1/2 of dose in each side of the mouth Continued multivitamin Tablet 1 tab PO DAILY clonidine HCl 0.1 mg tablet 0.1 mg PO BID potassium chloride 20 mEq tablet extended release 20 meq PO DAILY metoprolol succinate 50 mg tablet extended release 24 hr 50 mg PO DAILY lisinopril 40 mg tablet 40 mg PO QHS amlodipine 10 mg tablet 10 mg PO DAILY Retevmo 80 mg Capsule 80 mg PO BID atorvastatin 80 mg tablet 80 mg PO QHS Label Comments: lowers cholesterol aspirin 81 mg tablet,delayed release (DR/EC) 81 mg PO DAILY doxazosin 2 mg tablet 2 mg PO DAILY Referrals / Follow Up: Trista Prajapati MD [Primary Care Provider] - Within 1 Week Masci,Gerhard, DO [STAFF PHYSICIAN] - In 1 Week Disposition Disposition (needs filled in before D/C Order can be placed): Home, Self Care
--- NOTE | 2021-12-07 13:49 | DS.PCM_ITS ---
Providers Date of Admission: 12/05/21 Date of Discharge: 12/07/21 Primary Care Physician: Dr. Trista Prajapati MD Reason For Visit: diarrhea, weakness Diagnosis Discharge Diagnosis (1) Diarrhea: Status: Acute Code(s): R19.7 - Diarrhea, unspecified Plan 1. Generalized weakness-secondary to persistent diarrhea-we will continue to see PT and OT, he may need temporary placement in a senior care facility #2 persistent diarrhea-secondary to medication treatment for metastatic non- small cell lung cancer #3 hyperlipidemia-patient's statin has been held at this time #4 essential hypertension-patient's blood pressure appears to be under adequate control on his present medication #5 coronary artery disease-patient will remain on some of his medications from home, his other medications will be held due to his observation status. #6 Dementia with behavioral disturbances-new diagnosis #7 metastatic non-small cell lung cancer-there is no evidence of any metastatic spread to the brain at this time. Medications at Discharge Home Medications multivitamin 1 tab PO DAILY vitamin 06/16/21 amlodipine 10 mg tablet 10 mg PO DAILY BP 12/01/21 clonidine HCl 0.1 mg tablet 0.1 mg PO BID anxiety 12/01/21 lisinopril 40 mg tablet 40 mg PO QHS bp 12/01/21 metoprolol succinate 50 mg tablet,extended release 24 hr 50 mg PO DAILY heart 12/01/21 potassium chloride 20 mEq tablet,extended release 20 meq PO DAILY supplement 12/01/21 aspirin 81 mg tablet,delayed release 81 mg PO DAILY HEART 12/05/21 atorvastatin 80 mg tablet 80 mg PO QHS CHOLESTEROL 12/05/21 doxazosin 2 mg tablet 2 mg PO DAILY sleep 12/05/21 selpercatinib 80 mg capsule (Retevmo) 80 mg PO BID chemo 12/05/21 aspirin 81 mg tablet,delayed release 81 mg PO DAILY #0 tabs 12/07/21 donepezil 5 mg tablet (Aricept) 5 mg PO QHS #60 tabs 12/07/21 doxazosin 1 mg tablet 2 mg PO DAILY #0 tabs 12/07/21 loperamide 2 mg tablet (Imodium A-D) 2 - 4 mg PO Q4H PRN loose stool #30 tabs 12/07/21 memantine 5 mg tablet (Namenda) 5 mg PO BID #60 tabs 12/07/21 nystatin 100,000 unit/mL oral suspension 200,000 unit (2 mL) buccal .QID #60 mL 12/07/21 nystatin 100,000 unit/mL oral suspension 500,000 unit (5 mL) PO 4X/DAY #0 mL 12/07/21 quetiapine 25 mg tablet (Seroquel) 25 mg PO QHS #30 tabs 12/07/21 Hospital Course Operations None Procedures None Summary of Care Provided Minutes Spent on Discharge: 30 Hospital Course: This 76-year-old white male was seen in the emergency room with complaints of persistent diarrhea, he was receiving medication for treatment of non-small cell lung cancer, one of the side effects of the medication could be diarrhea. Work- up in the emergency room included labs which revealed a normal CBC, BMP was unremarkable, bilirubin was slightly elevated at 1.1. Patient was overall weak, he was placed into observation status on MedSurg 3, given IV fluids, and stool was obtained for enteric pathogens and C. difficile-these tests were negative and it was felt that the diarrhea was secondary to his medication for non-small cell lung cancer. During the patient's hospitalization, he became confused and agitated at times, and talking with his , it was noted that he had a mental status change about 3 weeks prior and he is short-term memory has been poor over the last several months. MRI was obtained with contrast it showed no abnormality. It was felt that the patient had dementia. PT and OT saw the patient, he ambulated without difficulty. On 12/07/2021, patient was seen and examined: On examination he appeared older than his stated age, he had confusion. Vital signs as documented. Skin warm and dry and without overt rashes. Neck without JVD, neck was supple, trachea midline, thyroid was normal. Lungs clear bilaterally, normal air movement was noted. Heart exam notable for regular rhythm, normal sounds and absence of murmurs, rubs or gallops. Abdomen unremarkable and without evidence of organomegaly, masses, or abdominal aortic enlargement. Bowel sounds are present, abdomen is not distended. Extremities nonedematous, no cyanosis was noted, no clubbing was noted. Neuro: Cranial nerves II through XII are grossly intact, no focal motor deficits were noted, sensation to light touch and pinprick intact, motor exam 5/5 throughout. Psych: Patient is alert but confused, patient is not agitated On 12/07/2021, patient was felt to be stable for discharge home. He was placed on medication for Alzheimer's dementia after discussing his care with his . Patient was to follow-up with oncology regarding further treatment. Weight / BMI Weight Weight: 89.63 kg Body Mass Index (BMI) 29.2 ABG / Lab / Microbiology Data Result Diagrams: 12/06/21 05:02 12/06/21 05:02 Microbiology: Microbiology 12/06/21 19:41 Stool C. difficile DNA Amplification - Final 12/06/21 10:55 Stool Enteric Bacteriology - Final D/C Instructions Discharge Diet: No restrictions Weight Bearing Status: Full weight bearing Additional Activity Instructions: no driving Meaningful Use Info Meaningful Use Diagnoses (Choose all that apply): None applicable Discharge Plan Admission Admit Date/Time: 12/05/21 09:16 Primary Reason for Your Visit: diarrhea Attending Provider: Vincenzo Lira Primary Care Provider: Trista Prajapati Discharge Orders/Prescriptions Prescriptions: New nystatin 100,000 unit/mL Suspension 500,000 unit PO 4X/DAY Qty: 0 0RF doxazosin 1 mg Tablet 2 mg PO DAILY Qty: 0 0RF aspirin 81 mg Tablet,Delayed Release (Dr/Ec) 81 mg PO DAILY Qty: 0 0RF donepezil [Aricept] 5 mg tablet 5 mg PO QHS Qty: 60 0RF Rx Instructions: one at bedtime for ten days, then two at bedtime thereafter quetiapine [Seroquel] 25 mg tablet 25 mg PO QHS Qty: 30 0RF Rx Instructions: 1/2 -1 at bedtime if needed for sleep memantine [Namenda] 5 mg tablet 5 mg PO BID Qty: 60 0RF loperamide [Imodium A-D] 2 mg tablet 2 - 4 mg PO Q4H PRN (Reason: loose stool) Qty: 30 0RF Rx Instructions: administer after each loose stool until symptoms controlled; do not exceed 8 mg per 24 hrs nystatin 100,000 unit/mL suspension 200,000 unit buccal .QID Qty: 60 0RF Rx Instructions: administer 1/2 of dose in each side of the mouth Continued multivitamin Tablet 1 tab PO DAILY clonidine HCl 0.1 mg tablet 0.1 mg PO BID potassium chloride 20 mEq tablet extended release 20 meq PO DAILY metoprolol succinate 50 mg tablet extended release 24 hr 50 mg PO DAILY lisinopril 40 mg tablet 40 mg PO QHS amlodipine 10 mg tablet 10 mg PO DAILY Retevmo 80 mg Capsule 80 mg PO BID atorvastatin 80 mg tablet 80 mg PO QHS Label Comments: lowers cholesterol aspirin 81 mg tablet,delayed release (DR/EC) 81 mg PO DAILY doxazosin 2 mg tablet 2 mg PO DAILY Referrals / Follow Up: Trista Prajapati MD [Primary Care Provider] - Within 1 Week Gerhard Weinstein DO [STAFF PHYSICIAN] - In 1 Week Disposition Disposition (needs filled in before D/C Order can be placed): Home, Self Care Charges/Coding Visit Charges OBSV E&M: 38071 Observation care discharge
== END 2021-12-07 14:55 | disposition home or self-care (01) ==
LOC: ED 08:31 → MS3 09:44
PROVIDERS: Admitting Provider Internal Medicine; Emergency Provider Emergency Medicine; PCP Internal Medicine; Visit Provider Internal Medicine
DX: R53.1 Weakness (principal); C79.51 Secondary malignant neoplasm of bone; C34.90 Malignant neoplasm of unspecified part of unspecified bronchus or lung; G30.9 Alzheimer's disease, unspecified; F02.80 Dementia in other diseases classified elsewhere, unspecified severity, without behavioral disturbance, psychotic disturbance, mood disturbance, and anxiety; R19.7 Diarrhea, unspecified; I25.10 Atherosclerotic heart disease of native coronary artery without angina pectoris; I10 Essential (primary) hypertension; E78.5 Hyperlipidemia, unspecified; Z87.891 Personal history of nicotine dependence; I25.2 Old myocardial infarction; Z79.899 Other long term (current) drug therapy; Z79.02 Long term (current) use of antithrombotics/antiplatelets; Z79.82 Long term (current) use of aspirin
CPT/HCPCS: 36415; 70553; 80048; 80053; 82140; 83605; 85025; 87493; 87506; 96360; 96361; 96372; 97162; 97164; 97166; 97168; 99218; 99285; A9575; J7030; A4216; G0378

== ENCOUNTER 2021-12-20 18:44 | Inpatient (IN) | payer MEDICARE, SELFPAY ==
[2016-08-06 14:55] VITALS: BMI 28.2
[2021-12-20 18:45] VITALS: BP 115/68; PULSE 80; RESP 22; TEMP 37.1; O2SAT 97; BMI 28.5
[2021-12-20 18:49] VITALS: BP 115/68; PULSE 78; RESP 22; O2SAT 97
--- NOTE | 2021-12-20 19:24 | EKG12_ITS ---
Test Reason : general illness Blood Pressure : / mmHG Vent. Rate : 080 BPM Atrial Rate : 080 BPM P-R Int : 180 ms QRS Dur : 082 ms QT Int : 364 ms P-R-T Axes : 058 003 030 degrees QTc Int : 419 ms Sinus rhythm with occasional Premature ventricular complexes Cannot rule out Inferior infarct , age undetermined Abnormal ECG Confirmed by ÁLVARO OTTO, IVETTE ([id number]), newspaper copy editor STEPHANIE HORAN ([id number]) on 12/25/2021 11:10:34 AM Referred By: Darrel Confirmed By:TOR REA MD
[2021-12-20 19:42] LABS: Absolute Lymphocyte Count 1.41 X10^3/uL (0.83-4.51); Basophil# 0.03 X10^3/uL; Basophil% 0.4 % (0-1); Eosinophil# 0.02 X10^3/uL; Eosinophils% 0.2 % (0-5); Hematocrit 43.1 % (40-54); Hemoglobin 14.9 g/dL (13.0-16.5); Lymphocyte # 1.41 X10^3/ul (0.83-4.51); Lymphocyte % 17.1 % (19-41); Mean Corp Hgb Conc 34.6 g/dL (32-36); Mean Corpuscular Volume 89.6 fL (80-94); Mean Platelet Vol. 9.9 fl (6.2-12.0); Monocyte# 0.73 X10^3/uL; Monocyte% 8.8 % (0-10); NRBC Flagged by Analyzer 0 % (0-5); Neutrophil # 6.02 X10^3/uL (2.7-7.7); Neutrophil % 72.9 % (47-70); Platelet Count 364 K/mm3 (150-450); RBC Distribution Width SD 49.7 fl (35.1-43.9); Red Blood Count 4.81 M/mm3 (4.6-6.2); White Blood Count 8.3 K/mm3 (4.4-11.0)
--- NOTE | 2021-12-20 19:42 | RAD_ITS ---
EXAM: XR CHEST, 1 VIEW CLINICAL INDICATION: weakness TECHNIQUE: Frontal view of the chest. This report was created using [employer] report generation technology. COMPARISON: 08/06/2016 FINDINGS: LUNGS AND PLEURAL SPACES: There is right lower lobe airspace disease. No pneumothorax. No effusion. HEART: Unremarkable. Cardiac silhouette not enlarged. MEDIASTINUM: Central airways and mediastinal contour are unremarkable. BONES/JOINTS: Unremarkable. SOFT TISSUES: Unremarkable. RAD/Chest 1 View (Portable) IMPRESSION: Right lower lobe lobe airspace disease may represent developing pneumonia. Electronically Signed: Noe Tolliver MD at 20:18 EDT ,
--- NOTE | 2021-12-20 19:43 | CT_ITS ---
EXAM: CT HEAD WITHOUT INTRAVENOUS CONTRAST CLINICAL INDICATION: altered mental status TECHNIQUE: Multiple axial images were obtained of the head without intravenous contrast. This CT exam was performed using one or more of the following dose reduction techniques: automated exposure control, adjustment of the mA and/or kV according to patient size, and/or use of iterative reconstruction technique. This report was created using [employer] report generation technology. COMPARISON: None. FINDINGS: BRAIN AND EXTRA-AXIAL SPACES: Unremarkable. No intra- or extra-axial hemorrhage. No evidence of acute infarct. No intracranial mass or mass effect. There is preservation of the rios/white matter interface. Posterior fossa structures are unremarkable. Ventricles are appropriate for age. No hydrocephalus. Basal cisterns are patent. BONES/JOINTS: Unremarkable. No discrete lytic or blastic abnormalities. SINUSES: Unremarkable as visualized. Clear. MASTOID AIR CELLS: Unremarkable. Clear. ORBITS: Visualized globes, extraocular muscles, optic nerves and retrobulbar fat appear unremarkable. CT/Brain/Head without Contrast IMPRESSION: Negative head/brain CT without intravenous contrast. Electronically Signed: Noe Tolliver MD at 20:16 EDT ,
[2021-12-20] MEDS: 0.9% Normal Saline 1,000 ML 1000 ML IV (20:03)
[2021-12-20 20:13] LABS: ALB/GLOB Ratio 0.7 RATIO (0.9-2.4); AST(SGOT) 43 U/L (15-37); Alanine Aminotransfer ALT/SGPT 45 U/L (16-61); Albumin, Serum 2.6 g/dL (3.2-5.0); Alkaline Phosphatase 117 U/L (45-117); Anion Gap 11 (5-15); BUN 24 mg/dL (7-18); BUN/Creat Ratio 40.5 RATIO (10-20); Calcium,Total 7.9 mg/dL (8.5-10.1); Chloride 106 mmol/L (98-107); Creatinine, Serum 0.59 mg/dL (0.70-1.30); EST Glomerular Filtration Rate 142 mL/min (>60); Est Glom Filt Rate - Afr Amer 172 mL/min (>60); Estimated Creatinine Clearance 64.81 ml/min; Globulin 3.6 g/dL (2.2-4.2); Glucose 95 mg/dL (74-106); Potassium 4.1 mmol/L (3.5-5.1); Protein, Total 6.2 g/dL (6.4-8.2); Sodium Level 135 mmol/L (136-145); Troponin-I HS 4 pg/mL (3.0-78.0)
[2021-12-20 20:25] LABS: Bacteria 0 SEEN /hpf (None Seen); Color, Urine Yellow (Yellow); Glucose, Dipstick Normal (Normal); Leukocyte Esterase-Dipstick 25 /ul (Negative); Mucous, Urine 0 SEEN /hpf (<or=2+); Nitrite-Dipstick Negative (Negative); Occult Blood-Urine Negative /ul (Negative); Protein-Dipstick 30 mg/dl (Negative); Red Blood Cells-Urine 0 SEEN /hpf (0-5); Specific Gravity, Urine 1.025 (1.002-1.030); Squamous Epithelial Cells - UA 0 SEEN /hpf (0-5); Urine Clarity Clear (Clear); Urine Urobilinogen 4 mg/dl (Normal)
[2021-12-20 20:27] LABS: Urine Bilirubin Dipstick 1 mg/dL (Negative)
[2021-12-20 20:29] LABS: Ketone-Dipstick 150 mg/dl (Negative)
[2021-12-20 20:32] LABS: White Blood Cells 0-5 SEEN /hpf (0-5)
--- NOTE | 2021-12-20 20:40 | EX.ED.DYSGE1 ---
HPI History of Present Illness Chief Complaint: General Illness Informant: patient and spouse/S.O. Limited: dementia Onset/Context/Timing Onset: Days (4) Context: Gradual Onset Timing: Continuous Quality: weak Location: all over Current Severity: Severe Maximum Severity: Severe Narrative Narrative: Patient has a history of dementia and stage IV lung cancer, for which he was on chemotherapy but discontinued all treatments about a month or so ago. In the past 4 days or so, states he has been getting very weak, not eating or drinking, and as a result urinating less and not having any bowel movements. She states that he had not wanted come to the hospital, but tonight she was unable to get him up out of bed even to use the bathroom, so she had EMS bring him for evaluation. She helps to take care of him at home. She states his living will states he does not want to be resuscitated, and when she asked him tonight, he said something about just wanting to be comfortable. He denies any pain to me right now, headache, nausea, or trouble breathing, but he is not talking and simply shaking his head yes or no to questions in history/ROS very limited. 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 Palpitations Presence of stent in coronary artery (~08/06/16) Pure hypercholesterolemia Sinus bradycardia Weakness Home Medications multivitamin 1 tab PO DAILY vitamin 06/16/21 [History Last Taken 12/04/21] amlodipine 10 mg tablet 10 mg PO QHS BP 12/01/21 [History Last Taken 12/04/21] clonidine HCl 0.1 mg tablet 0.1 mg PO BID anxiety 12/01/21 [History Last Taken 12/04/21] lisinopril 40 mg tablet 40 mg PO QHS bp 12/01/21 [History Last Taken 12/04/21] metoprolol succinate 50 mg tablet,extended release 24 hr 50 mg PO DAILY heart 12/01/21 [History Last Taken 12/04/21] potassium chloride 20 mEq tablet,extended release 20 meq PO DAILY supplement 12/01/21 [History Last Taken 12/04/21] aspirin 81 mg tablet,delayed release 81 mg PO DAILY HEART 12/05/21 [History Last Taken 12/04/21] atorvastatin 80 mg tablet 80 mg PO QHS CHOLESTEROL 12/05/21 [History Last Taken 12/04/21] doxazosin 2 mg tablet 2 mg PO QHS sleep 12/05/21 [History Last Taken 12/04/21] selpercatinib 80 mg capsule (Retevmo) 160 mg PO BID chemo 12/05/21 [History Last Taken 12/04/21] donepezil 5 mg tablet (Aricept) 5 mg PO QHS #60 tabs 12/07/21 [Rx Last Taken Unknown] loperamide 2 mg tablet (Imodium A-D) 2 - 4 mg PO Q4H PRN loose stool #30 tabs 12/07/21 [Rx Last Taken Unknown] memantine 5 mg tablet (Namenda) 5 mg PO DAILY 12/20/21 [History Last Taken Unknown] quetiapine 25 mg tablet (Seroquel) 12.5 - 25 mg PO QHS 12/20/21 [History Last Taken Unknown] Allergy/AdvReac Type Severity Reaction Status Date / Time alginic acid AdvReac Unknown Verified 12/20/21 18:45 aluminum hydroxide AdvReac Unknown Verified 12/20/21 18:45 cromolyn [From Gastrocrom] AdvReac Hives Verified 12/20/21 18:45 magnesium AdvReac Unknown Verified 12/20/21 18:45 Family History Father Cancer Hypertension Mother Diabetes CHF (congestive heart failure) Brother Hypertension Sister Hypertension Other Family history of hypertension Surgical History Presence of coronary angioplasty implant and graft (~08/06/16) S/P CABG x 3 (~07/22/01) Social History Smoking Status: Former smoker how long ago did patient quit smokin alcohol intake: current alcohol intake frequency: 0-2 drinks per day Alcohol type: wine substance use type: does not use caffeine: Yes Type: coffee what type of physical activity do you participate in: walking frequency: daily duration: 30-45 minutes/day seatbelt use: always do you feel safe at home: Yes ROS ROS ED Review of Systems ROS Unobtainable: due to mental condition and due to mental status Constitutional Constitutional ED: Reports fatigue, malaise and weakness ENT ENT ED: Denies sore throat Cardiovascular Cardiovascular: Denies chest pain or palpitations Respiratory/Chest Respiratory/Chest: Denies cough or dyspnea Gastrointestinal Gastrointestinal: Denies abdominal pain, diarrhea, nausea or vomiting Genitourinary Genitourinary ED: Denies dysuria or hematuria Musculoskeletal Musculoskeletal: Denies back pain or neck pain Neurologic Neurologic: Denies headache(s), paresthesias or weakness EXAM Physical Exam Const Vital Signs: 12/20/21 18:45 12/20/21 18:49 12/20/21 18:51 Temperature 98.8 F Temperature Source Temporal Pulse Rate 80 78 Respiratory Rate 22 H 22 H Respiratory Effort Normal Blood Pressure 115/68 115/68 Blood Pressure Mean 83 83 Pulse Ox 97 97 Oxygen Delivery Method Room Air Room Air 12/20/21 21:00 Temperature Temperature Source Pulse Rate 76 Respiratory Rate 15 Respiratory Effort Blood Pressure 119/60 Blood Pressure Mean 79 Pulse Ox 98 Oxygen Delivery Method Room Air Positive well nourished and well developed General Appearance ED: well developed and NAD HEENT Reports dry mucous membranes normocephalic and atraumatic Mouth ED: Yes dry mucous membranes Mouth: dry mucous membranes Eyes PERRL and EOMs intact bilaterally Neck full ROM and supple Resp normal respiratory effort and clear to auscultation bilaterally Cardio regular rate, regular rhythm and no murmurs GI non-tender and non-distended Auscultation: normoactive bowel sounds Palpation: soft Back/Spine no CVA tenderness General Back: other FROM Extremity normal to inspection General Extremety ED: Negative for edema, pulses abnormal or tenderness General Extremity: Negative for edema or pulses abnormal Neuro oriented x3, CN's II-XII intact bilaterally and no sensory deficits noted Sensorium / Orientation: awake and alert Motor Exam: strength 5/5 throughout Skin no rashes or lesions noted and no wounds MDM MDM MDM Narrative Medical decision making narrative: Patient given IV fluids, clinically is dehydrated, labs are consistent with this, 1 view x-ray on my interpretation showing right lower lobe infiltrate as well, this looks more like an infiltrate than a mass. Added blood cultures and lactate which is WNL, and added antibiotic treatment for this. Given his degree of weakness, will admit for further treatment. Lab Data Attestation: I reviewed the patient's lab results. Labs: Laboratory Results - last 24 hr 12/20/21 12/20/21 12/20/21 18:55 18:55 18:55 WBC 8.3 RBC 4.81 Hgb 14.9 Hct 43.1 MCV 89.6 MCH 31.0 MCHC 34.6 RDW Std Deviation 49.7 H RDW Coeff of Amanda 15.0 H Plt Count 364 MPV 9.9 Immature Gran % (Auto) 0.600 Neut % (Auto) 72.9 H Lymph % (Auto) 17.1 L [place] % (Auto) 8.8 Eos % (Auto) 0.2 Baso % (Auto) 0.4 Absolute Neuts (auto) 6.0 Absolute Lymphs (auto) 1.41 Nucleated RBC % 0 Sodium 135 L Potassium 4.1 Chloride 106 Carbon Dioxide 18.0 L Anion Gap 11 BUN 24 H Creatinine 0.59 L Estim Creat Clear Calc 64.81 Est GFR (MDRD) Af Amer 172 Est GFR (MDRD) Non-Af 142 BUN/Creatinine Ratio 40.5 H Glucose 95 Lactic Acid 1.2 Calcium 7.9 L Total Bilirubin 1.10 H AST 43 H ALT 45 Alkaline Phosphatase 117 Troponin I High Sens 4 Total Protein 6.2 L Albumin 2.6 L Globulin 3.6 Albumin/Globulin Ratio 0.7 L Urine Color Urine Clarity Urine pH Ur Specific [place] Urine Protein Urine Glucose (UA) Urine Ketones Urine Occult Blood Urine Nitrite Urine Bilirubin Urine Urobilinogen Ur Leukocyte Esterase Urine RBC Urine WBC Ur Squamous Epith Cells Urine Bacteria Urine Mucus 12/20/21 20:09 WBC RBC Hgb Hct MCV MCH MCHC RDW Std Deviation RDW Coeff of Amanda Plt Count MPV Immature Gran % (Auto) Neut % (Auto) Lymph % (Auto) [place] % (Auto) Eos % (Auto) Baso % (Auto) Absolute Neuts (auto) Absolute Lymphs (auto) Nucleated RBC % Sodium Potassium Chloride Carbon Dioxide Anion Gap BUN Creatinine Estim Creat Clear Calc Est GFR (MDRD) Af Amer Est GFR (MDRD) Non-Af BUN/Creatinine Ratio Glucose Lactic Acid Calcium Total Bilirubin AST ALT Alkaline Phosphatase Troponin I High Sens Total Protein Albumin Globulin Albumin/Globulin Ratio Urine Color Yellow Urine Clarity Clear Urine pH 6.0 Ur Specific [place] 1.025 Urine Protein 30 H Urine Glucose (UA) Normal Urine Ketones 150 A* Urine Occult Blood Negative Urine Nitrite Negative Urine Bilirubin 1 H Urine Urobilinogen 4 H Ur Leukocyte Esterase 25 H Urine RBC 0 SEEN Urine WBC 0-5 SEEN Ur Squamous Epith Cells 0 SEEN Urine Bacteria 0 SEEN Urine Mucus 0 SEEN Radiography Diagnostic Testing: Clinical Impression(s) from Imaging Studies Chest X-Ray 12/20/21 19:42 IMPRESSION: Right lower lobe lobe airspace disease may represent developing pneumonia. Electronically Signed: Noe Tolliver MD at 20:18 EDT , Brain CT 12/20/21 19:43 IMPRESSION: Negative head/brain CT without intravenous contrast. Electronically Signed: Noe Tolliver MD at 20:16 EDT , Rhythm Strip Rhythm Strip: Sinus Rhythm Rate: 80 Ectopy: PVC(s) EKG Initial EKG: Attestation: I personally reviewed and interpreted this EKG as follows: Interpretation: Sinus Rhythm, No Acute Injury Pattern and Non-Specific ST Changes Prior EKG tracings: available for review Prior: Unchanged Discharge Plan Dx/Rx/DC Orders Clinical Impression: Pneumonia, Dehydration, Stage 4 lung cancer, Encephalopathy acute Disposition Disposition: Acute Care Hospital [facility]
[2021-12-20 20:58] LABS: Lactic Acid 1.2 mmol/L (0.4-1.9)
[2021-12-20 21:00] VITALS: BP 119/60; PULSE 76; RESP 15; O2SAT 98
--- NOTE | 2021-12-20 21:36 | HP.PCM.HOS_ITS ---
HPI - General General Date of Admission: 12/20/21 Date of Service: 12/20/21 Chief Complaint: Decreased oral intake, cough, pronounced decline. HPI Narrative The patient is a 76 y/o M w/ PMHx: CAD s/p CABG x 3 and PCI, HTN, HLD, Dementia unclear type with unclear behavioral disturbance history with decreased verbal interaction baseline, Stage IV Lung Cancer with recent discontinuation ~ 1 month prior of his chemotherapy medications with decision per discussion with patient/spouse to stop treatment with ongoing evaluation currently per P alliative therapy with family/patient interest in Hospice discussions who presents to the [facility] ED on 12/20/21 secondary to pronounced decline x 5-7 days, decreased oral intake, reporting no appetite, increased fatigue and malaise with incidentally reported mildly increased cough and BL eye discharge with no recent fevers or chills. reports increased confusion above his baseline over the last several days. Work-up in the ED included T98.8, heart rate 80, BP 115/68, respiratory rate 22, 97% on room air, CBC w/ WBC 8.3, hemoglobin 14.9, platelet 364 without marked shift, CMP with sodium 135, carbon oxide 18, BUN/creat 20/0.59, lactic acid 1.2, total bilirubin 1.10, AST/ALT 43/45, alk ph os 117, troponin 4 otherwise hepatic profile not marked appearing, chest x-ray with right lower lobe airspace disease suspicious for pneumonia, CT of the brain with no acute intracranial finding, urinalysis with elevated specific gravity 1.025, ketones 150, negative nitrite, leukocyte Estrace 25, no evidence of urinary tract infection, urine culture pending per ED, blood culture pending per ED, EKG with sinus rhythm with nonspecific ST changes with no acute evidence of ischemia. In the ED patient ministered normal saline, Rocephin and azithromycin. 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 Palpitations Presence of stent in coronary artery (~08/06/16) Pure hypercholesterolemia Sinus bradycardia Weakness Home Medications multivitamin 1 tab PO DAILY vitamin 06/16/21 [History Last Taken 12/04/21] amlodipine 10 mg tablet 10 mg PO QHS BP 12/01/21 [History Last Taken 12/04/21] clonidine HCl 0.1 mg tablet 0.1 mg PO BID anxiety 12/01/21 [History Last Taken 12/04/21] lisinopril 40 mg tablet 40 mg PO QHS bp 12/01/21 [History Last Taken 12/04/21] metoprolol succinate 50 mg tablet,extended release 24 hr 50 mg PO DAILY heart 12/01/21 [History Last Taken 12/04/21] potassium chloride 20 mEq tablet,extended release 20 meq PO DAILY supplement 12/01/21 [History Last Taken 12/04/21] aspirin 81 mg tablet,delayed release 81 mg PO DAILY HEART 12/05/21 [History Last Taken 12/04/21] atorvastatin 80 mg tablet 80 mg PO QHS CHOLESTEROL 12/05/21 [History Last Taken 12/04/21] doxazosin 2 mg tablet 2 mg PO QHS sleep 12/05/21 [History Last Taken 12/04/21] selpercatinib 80 mg capsule (Retevmo) 160 mg PO BID chemo 12/05/21 [History Last Taken 12/04/21] loperamide 2 mg tablet (Imodium A-D) 2 - 4 mg PO Q4H PRN loose stool #30 tabs 12/07/21 [Rx Last Taken Unknown] donepezil 5 mg tablet (Aricept) 5 mg PO QHS memory 12/20/21 [History Last Taken Unknown] memantine 5 mg tablet (Namenda) 5 mg PO DAILY memory 12/20/21 [History Last Taken Unknown] quetiapine 25 mg tablet (Seroquel) 12.5 - 25 mg PO QHS sleep 12/20/21 [History Last Taken Unknown] Allergy/AdvReac Type Severity Reaction Status Date / Time alginic acid AdvReac Unknown Verified 12/20/21 18:45 aluminum hydroxide AdvReac Unknown Verified 12/20/21 18:45 cromolyn [From Gastrocrom] AdvReac Hives Verified 12/20/21 18:45 magnesium AdvReac Unknown Verified 12/20/21 18:45 Family History Father Cancer Hypertension Mother Diabetes CHF (congestive heart failure) Brother Hypertension Sister Hypertension Other Family history of hypertension Surgical History Presence of coronary angioplasty implant and graft (~08/06/16) S/P CABG x 3 (~07/22/01) Social History Smoking Status: Former smoker how long ago did patient quit smokin alcohol intake: current alcohol intake frequency: 0-2 drinks per day Alcohol type: wine substance use type: does not use caffeine: Yes Type: coffee what type of physical activity do you participate in: walking frequency: daily duration: 30-45 minutes/day seatbelt use: always do you feel safe at home: Yes ROS ROS Narrative Admission Review of Systems: CONSTITUTIONAL: No weight loss, fever, chills, + weakness or fatigue. HEENT: + BL conjunctival discharge. Eyes: No visual loss, blurred vision, double vision or yellow sclerae. Ears, Nose, Throat: No hearing loss, sneezing, congestion, runny nose or sore throat. SKIN: No rash or itching, lesions, wounds. CARDIOVASCULAR: No chest pain, chest pressure or chest discomfort, palpitations, edema, orthopnea, syncopal events. RESPIRATORY: + Recent increased cough. No shortness of breath, markedly increased sputum, wheezing, hemoptysis. GASTROINTESTINAL: + Anorexia, No nausea, vomiting, abdominal pain, diarrhea, melena, BRBPR. GENITOURINARY: No dysuria, frequency, urgency or retention. NEUROLOGICAL: + Increased confusion, underlying dementia, nonverbal baseline. No headache, dizziness, syncope, paralysis, ataxia, numbness or tingling in the extremities, focal weakness, change in bowel or bladder control, seizure. MUSCULOSKELETAL: + muscle, back pain, joint pain or stiffness. HEMATOLOGIC: + anemia, bleeding or bruising. LYMPHATICS: No enlarged nodes. No history of splenectomy. PSYCHIATRIC: + history of depression or anxiety. ENDOCRINOLOGIC: No reports of sweating, cold or heat intolerance. No polyuria or polydipsia. ALLERGIES: No history of asthma, hives, eczema or rhinitis. Vital Signs Vital Signs Vital Signs: 12/20/21 18:45 12/20/21 18:49 12/20/21 18:51 Temperature 98.8 F Temperature Source Temporal Pulse Rate 80 78 Respiratory Rate 22 H 22 H Respiratory Effort Normal Blood Pressure 115/68 115/68 Blood Pressure Mean 83 83 Pulse Ox 97 97 Oxygen Delivery Method Room Air Room Air 12/20/21 21:00 Temperature Temperature Source Pulse Rate 76 Respiratory Rate 15 Respiratory Effort Blood Pressure 119/60 Blood Pressure Mean 79 Pulse Ox 98 Oxygen Delivery Method Room Air Weight Weight: 193 lb 1.999 oz Body Mass Index (BMI) 28.5 Physical Exam Narrative Physical Examination: General: Awake, alert, nonverbal which is baseline with underlying dementia but nodding answers appropriately, fatigued and will appearing. Skin: Normal color, normal turgor, no icterus, no cyanosis. HEENT: AT/NC, EOMI, PERRLA, dry MM, BL yellow conjunctival discharge noted, no carotid bruits or JVD noted. Lungs: Diminished, > bases, R>L, mildly rhonchorous, no distress noted, no rales or wheezing. Heart: Regular rate and rhythm; no gallop, rub audible. Abdomen: Soft, NTTP, ND, mildly hyperactive bowel sounds, no obvious HSM. Extremities: No cyanosis, no clubbing, BL ankle edema. Neurological: Patient awake, alert, oriented as noted, cognitive function currently at his baseline although underlying dementia with baseline deficits, primarily nonverbal baseline, pupils equally reactive to light and accommodation, cranial nerves grossly normal, moving all 4 extremities, no focal deficits, strength moderately to severely decreased secondary to acute presentation. Psychiatric: Affect appears fatigued, ill appearing, no evidence of anxiety or depressive feelings. Results Lab / Micro Data Result Diagrams: 12/20/21 18:55 12/20/21 18:55 Labs: Laboratory Results - last 24 hr 12/20/21 18:55: WBC 8.3, RBC 4.81, Hgb 14.9, Hct 43.1, MCV 89.6, MCH 31.0, MCHC 34.6, RDW Std Deviation 49.7 H, RDW Coeff of Amanda 15.0 H, Plt Count 364, MPV 9.9, Immature Gran % (Auto) 0.600, Neut % (Auto) 72.9 H, Lymph % (Auto) 17.1 L, [place] % (Auto) 8.8, Eos % (Auto) 0.2, Baso % (Auto) 0.4, Absolute Neuts (auto) 6.0, Absolute Lymphs (auto) 1.41, Nucleated RBC % 0 12/20/21 18:55: Sodium 135 L, Potassium 4.1, Chloride 106, Carbon Dioxide 18.0 L , Anion Gap 11, BUN 24 H, Creatinine 0.59 L, Estim Creat Clear Calc 64.81, Est GFR (MDRD) Af Amer 172, Est GFR (MDRD) Non-Af 142, BUN/Creatinine Ratio 40.5 H, Glucose 95, Calcium 7.9 L, Total Bilirubin 1.10 H, AST 43 H, ALT 45, Alkaline Phosphatase 117, Troponin I High Sens 4, Total Protein 6.2 L, Albumin 2.6 L, Globulin 3.6, Albumin/Globulin Ratio 0.7 L 12/20/21 18:55: Lactic Acid 1.2 12/20/21 20:09: Urine Color Yellow, Urine Clarity Clear, Urine pH 6.0, Ur Specific [place] 1.025, Urine Protein 30 H, Urine Glucose (UA) Normal, Urine Ketones 150 A*, Urine Occult Blood Negative, Urine Nitrite Negative, Urine Bilirubin 1 H, Urine Urobilinogen 4 H, Ur Leukocyte Esterase 25 H, Urine RBC 0 SEEN, Urine WBC 0-5 SEEN, Ur Squamous Epith Cells 0 SEEN, Urine Bacteria 0 SEEN, Urine Mucus 0 SEEN Rhythm Strip Rhythm Strip: Sinus Rhythm Rate: 80 Ectopy: PVC(s) Radiology Impression Chest X-Ray 12/20/21 19:42 IMPRESSION: Right lower lobe lobe airspace disease may represent developing pneumonia. Electronically Signed: Noe Tolliver MD at 20:18 EDT , Brain CT 12/20/21 19:43 IMPRESSION: Negative head/brain CT without intravenous contrast. Electronically Signed: Noe Tolliver MD at 20:16 EDT , Assessment & Plan Assessment/Plan (1) Pneumonia: PLAN: Plan The patient is a 76 y/o M w/ PMHx: CAD s/p CABG x 3 and PCI, HTN, HLD, Dementia unclear type with unclear behavioral disturbance history with decreased verbal interaction baseline, Stage IV Lung Cancer with recent discontinuation ~ 1 month prior of his chemotherapy medications with decision per discussion with patient/spouse to stop treatment with ongoing evaluation currently per Palliative therapy with family/patient interest in Hospice discussions who presents to the [facility] ED on 12/20/21 secondary to pronounced decline x 5-7 days, decreased oral intake, reporting no appetite, increased fatigue and malaise with incidentally reported mildly increased cough and BL eye discharge with no recent fevers or chills. 1. Acute Encephalopathy complicated by #7 secondary to RLL Pneumonia complicated by #2: Will admit to [facility], maintain on fall and aspiration precautions, continue IV rocephin and azithromycin, will obtain sputum Cx, urine antigens, respiratory viral panel, if any aspiration concerns arise will obtain ST evaluation and transition to improved abx coverate, PT/OT/CM consultations for discharge planning. 2. 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 Weinstein with recent self directed discontinuation ~ 1 month prior of his chemotherapy medications with decision per discussion with patient/spouse. Patient and family interested in Hospice who have been consulted. Patient already established with Palliative. 3. BL Eye Conjunctivitis: Will continue routine eye care and cleansing, start erythromycin ointment until resolved. 4. CAD: s/p prior CABG x 3 and PCI, will continue home aspirin, metoprolol, lisinopril, statin therapy. 5. Hypertension: Will continue home metoprolol, lisinopril, clonidine, amlodipine with hold parameters as needed, PRN IV hydralazine. 6. Hyperlipidemia: Will continue home statin therapy. 7. Dementia unclear type with unclear behavioral disturbance history: Patient with decreased verbal interaction baseline, will continue home aricept and q HS low dose seroquel regimen. 8. DVT Prophylaxis: SCDs, lovenox. 9. CODE status: Patient is his HCPOA or living will is currently in place. Discussed CODE status at length including difference between FULL code, DNR-CCA and DNR-CC status. Following discussions about the differences in these status, requested DNR-CCA, no intubation status but interested in Hospice discussions. Advanced Care Planning Face to Face Time: 16 minutes. Charges/Coding Visit Charges Inpatient E&M: 42558 Init Hosp L3 Procedures Hospitalists Procedures: 54121 Advncd Care Plan 30 Min
[2021-12-20] MEDS: 0.9% Normal Saline 1,000 ML 150 ML IV (22:05)
[2021-12-20 22:11] VITALS: BP 136/68; PULSE 86; RESP 17; TEMP 37; O2SAT 97
[2021-12-20 23:03] VITALS: O2SAT 96
[2021-12-20 23:04] VITALS: BP 132/66; PULSE 80; RESP 16; TEMP 37; O2SAT 96
[2021-12-20 23:05] VITALS: BMI 27.1
[2021-12-20] MEDS: 0.9% Normal Saline 1,000 ML 125 ML IV (23:21)
[2021-12-20] MEDS: Erythromycin Base 1 OPTH.TUBE 1 APPLIC EACH EYE (23:30)
[2021-12-21] MEDS: proCHLORPERazine 10 MG/2 ML Vial 5 MG IV ×2 (01:43→20:35)
[2021-12-21] MEDS: 0.9% Saline Lock 10 ML Syringe IV ×2 (01:44→20:21)
--- NOTE | 2021-12-21 01:51 | NURSING ---
Pt set off bed exit. Upon entering room, found pt sitting on side of bed, had pulled IV out. Pt states he has to go to BR. Ambulated to [facility] x1 assist. Pt voided & had small BM. Upon returning to bed, pt C/O nausea. IV restarted & compazine given per prn orders. Will monitor.
[2021-12-21 05:00] VITALS: BP 131/75; PULSE 82; RESP 18; TEMP 37; O2SAT 96
[2021-12-21 05:03] VITALS: O2SAT 96
[2021-12-21 07:02] LABS: Absolute Lymphocyte Count 0.97 X10^3/uL (0.83-4.51); Absolute Neutrophil Count 5.3 X10^3/uL (2.0-7.7); Basophil# 0.02 X10^3/uL; Basophil% 0.3 % (0-1); Eosinophil# 0.01 X10^3/uL; Eosinophils% 0.1 % (0-5); Hematocrit 37.6 % (40-54); Lymphocyte # 0.97 X10^3/ul (0.83-4.51); Lymphocyte % 13.8 % (19-41); Mean Corp Hgb Conc 34.6 g/dL (32-36); Mean Corpuscular Hgb 31.2 pg (27.0-32.0); Mean Corpuscular Volume 90.2 fL (80-94); Mean Platelet Vol. 9.6 fl (6.2-12.0); Monocyte# 0.71 X10^3/uL; Monocyte% 10.1 % (0-10); NRBC Flagged by Analyzer 0 % (0-5); Neutrophil # 5.29 X10^3/uL (2.7-7.7); Platelet Count 317 K/mm3 (150-450); RBC Distribution Width CV 14.9 % (11.6-14.6); RBC Distribution Width SD 49.4 fl (35.1-43.9); Red Blood Count 4.17 M/mm3 (4.6-6.2); White Blood Count 7.1 K/mm3 (4.4-11.0)
[2021-12-21 07:37] LABS: ALB/GLOB Ratio 0.8 RATIO (0.9-2.4); AST(SGOT) 27 U/L (15-37); Alanine Aminotransfer ALT/SGPT 36 U/L (16-61); Albumin, Serum 2.3 g/dL (3.2-5.0); Alkaline Phosphatase 98 U/L (45-117); Anion Gap 9 (5-15); BUN 18 mg/dL (7-18); Calcium,Total 7.2 mg/dL (8.5-10.1); Chloride 109 mmol/L (98-107); Creatinine, Serum 0.58 mg/dL (0.70-1.30); EST Glomerular Filtration Rate 145 mL/min (>60); Est Glom Filt Rate - Afr Amer 176 mL/min (>60); Estimated Creatinine Clearance 64.81 ml/min; Globulin 2.9 g/dL (2.2-4.2); Glucose 101 mg/dL (74-106); Potassium 3.6 mmol/L (3.5-5.1); Protein, Total 5.2 g/dL (6.4-8.2); Sodium Level 137 mmol/L (136-145)
--- NOTE | 2021-12-21 08:03 | PN.HOSP_ITS ---
Subjective Subjective Follow-up for acute encephalopathy, history of possible dementia. Objective Data Objective Data Vital Signs: Vital Signs Temp Pulse Resp BP Pulse Ox O2 Del Method 98.6 F 82 18 131/75 H 96 Room Air 12/21/21 05:00 12/21/21 05:00 12/21/21 05:00 12/21/21 05:00 12/21/21 05:03 12/21/21 07:31 Oxygen Delivery Method Room Air Weight: 183 lb 6.793 oz Body Mass Index (BMI) 27.1 Intake & Output: Intake and Output for Last 24 Hours 12/19/21 12/20/21 12/21/21 23:59 23:59 23:59 Intake Total 1502.5 / 1502.5 Output Total 800 / 800 Balance 702.5 / 702.5 Lab / Micro Data Result Diagrams: 12/21/21 06:30 12/21/21 06:30 Labs: Laboratory Results - last 24 hr 12/20/21 18:55: WBC 8.3, RBC 4.81, Hgb 14.9, Hct 43.1, MCV 89.6, MCH 31.0, MCHC 34.6, RDW Std Deviation 49.7 H, RDW Coeff of Amanda 15.0 H, Plt Count 364, MPV 9.9, Immature Gran % (Auto) 0.600, Neut % (Auto) 72.9 H, Lymph % (Auto) 17.1 L, [place] % (Auto) 8.8, Eos % (Auto) 0.2, Baso % (Auto) 0.4, Absolute Neuts (auto) 6.0, Absolute Lymphs (auto) 1.41, Nucleated RBC % 0 12/20/21 18:55: Sodium 135 L, Potassium 4.1, Chloride 106, Carbon Dioxide 18.0 L , Anion Gap 11, BUN 24 H, Creatinine 0.59 L, Estim Creat Clear Calc 64.81, Est GFR (MDRD) Af Amer 172, Est GFR (MDRD) Non-Af 142, BUN/Creatinine Ratio 40.5 H, Glucose 95, Calcium 7.9 L, Total Bilirubin 1.10 H, AST 43 H, ALT 45, Alkaline Phosphatase 117, Troponin I High Sens 4, Total Protein 6.2 L, Albumin 2.6 L, Globulin 3.6, Albumin/Globulin Ratio 0.7 L 12/20/21 18:55: Lactic Acid 1.2 12/20/21 20:09: Urine Color Yellow, Urine Clarity Clear, Urine pH 6.0, Ur Specific [place] 1.025, Urine Protein 30 H, Urine Glucose (UA) Normal, Urine Ketones 150 A*, Urine Occult Blood Negative, Urine Nitrite Negative, Urine Bilirubin 1 H, Urine Urobilinogen 4 H, Ur Leukocyte Esterase 25 H, Urine RBC 0 SEEN, Urine WBC 0-5 SEEN, Ur Squamous Epith Cells 0 SEEN, Urine Bacteria 0 SEEN, Urine Mucus 0 SEEN 12/21/21 06:30: WBC 7.1, RBC 4.17 L, Hgb 13.0, Hct 37.6 L, MCV 90.2, MCH 31.2, MCHC 34.6, RDW Std Deviation 49.4 H, RDW Coeff of Amanda 14.9 H, Plt Count 317, MPV 9.6, Immature Gran % (Auto) 0.700, Neut % (Auto) 75.0 H, Lymph % (Auto) 13.8 L, [place] % (Auto) 10.1 H, Eos % (Auto) 0.1, Baso % (Auto) 0.3, Absolute Neuts (auto) 5.3, Absolute Lymphs (auto) 0.97, Nucleated RBC % 0 12/21/21 06:30: Sodium 137, Potassium 3.6, Chloride 109 H, Carbon Dioxide 19.0 L , Anion Gap 9, BUN 18, Creatinine 0.58 L, Estim Creat Clear Calc 64.81, Est GFR (MDRD) Af Amer 176, Est GFR (MDRD) Non-Af 145, BUN/Creatinine Ratio 31.0 H, Glucose 101, Calcium 7.2 L, Total Bilirubin 0.70, AST 27, ALT 36, Alkaline Phosphatase 98, Total Protein 5.2 L, Albumin 2.3 L, Globulin 2.9, Albumin/Globulin Ratio 0.8 L Micro: Microbiology 12/20/21 23:45 Mucosa - Nose Respiratory Panel (PCR) - Final 12/20/21 20:09 Urine Catheter - Catheter Streptococcus pneumoniae Antigen (M - Final 12/20/21 20:09 Urine Catheter - Catheter Legionella Antigen - Final Radiography Diagnostic Testing: Radiology Impression Chest X-Ray 12/20/21 19:42 IMPRESSION: Right lower lobe lobe airspace disease may represent developing pneumonia. Electronically Signed: Noe Tolliver MD at 20:18 EDT , Brain CT 12/20/21 19:43 IMPRESSION: Negative head/brain CT without intravenous contrast. Electronically Signed: Noe Tolliver MD at 20:16 EDT , Rhythm Strip Rhythm Strip: Sinus Rhythm Rate: 80 Ectopy: PVC(s) Physical Exam Narrative Seen and examined. I talked to the patient's and the patient near the bedside. As per the patient mental health is gradually declining with slowness, increased time for recall and registration, loss of fluency of his speech, pausing in conversation. But for last 1 week, patient had increase sleepiness, decreased oral intake, no appetite fatigue. No fever or chills. No dysuria. Patient has mild increased cough. Physical exam General: Lethargic, drowsy. No eye contact. No meaningful conversation. HEENT: Atraumatic, PERRLA, EOMI, Normocephalic Oral: No Gingival or Mucosal Lesions/ Ulcerations Neck: Supple, No JVD, Negative Carotid Bruits Lungs: Air entry diminished in bilateral lung bases. No crepitation/rhonchi Cardiovascular: Regular rate, Regular Rhythm, Normal S1, Normal S2, No murmurs Abdomen: Bowel Sounds Present, Soft, Non Tender, Non-Distended : No renal angle tenderness. No suprapubic tenderness. Extremities: No edema, Capillary Refill Less than 3 Seconds Skin: No rashes, No breakdown Musculoskeletal: No Tenderness to Palpation of Joints or Extremities Neurological: Cranial nerves II-XII grossly intact, no focal lateralizing sign. DTR 2+. Psych/Mental Status: Flat affect, dementia Assessment & Plan Assessment/Plan (1) Pneumonia: PLAN: Plan The patient is a 76 y/o M with multiple comorbidities admitted with acute decline in physical health, oral intake no appetite fatigue, cough on top of chronic dementia. 1. Acute Encephalopathy with history of baseline dementia, disorderly behavior: Possible metabolic/infectious encephalopathy: Patient admitted to MedSurg floor. Try to treat underlying disorder. 2. Right lower lobe possible aspiration pneumonia with history of stage IV Lung Cancer: No fever during hospital course. No hypoxia or tachypnea. Patient was empirically started on IV Rocephin and Zithromax. UA is negative, WBC 0-5 LE 25 nitrite negative, bacteria negative. Respiratory panel and urinary antigens are negative. We will change the antibiotic to IV Unasyn. 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 Patient follows Dr. Weinstein. Patient and family interested in Hospice who have been consulted. Patient already established with Palliative. 3. BL Eye Conjunctivitis: continue routine eye care and cleansing, start erythromycin ointment until resolved. 4. CAD: s/p prior CABG x 3 and PCI,l continue home aspirin, metoprolol, lisinopril, statin therapy. 5. Hypertension: Will continue home metoprolol, lisinopril, clonidine, amlodipine with hold parameters as needed, PRN IV hydralazine. 6. Hyperlipidemia: Will continue home statin therapy. 7. Dementia unclear type with unclear behavioral disturbance history: Patient did not had much conversation. At home also as per he does not have much facial recognition, pausing during conversation increased recall time and mental slowness. Continue home Aricept and memantine and low dose seroquel regimen. 8. DVT Prophylaxis: SCDs, lovenox. 9. CODE status: Patient is his HCPOA or living will is currently in place. Discussed CODE status at length including difference between FULL code, DNR-CCA and DNR-CC status. Following discussions about the differences in these status, requested DNR-CCA, no intubation status but interested in Hospice discussions. Charges/Coding Visit Charges Inpatient E&M: 21638 Subs Hosp L2
[2021-12-21] MEDS: 0.9% Normal Saline 1,000 ML 125 ML IV (08:35)
[2021-12-21 09:35] VITALS: BP 111/68; PULSE 91; RESP 18; TEMP 36.9; O2SAT 97
[2021-12-21] MEDS: Enoxaparin 40 MG/0.4 ML Syringe SC (09:44)
[2021-12-21] MEDS: Erythromycin Base 1 OPTH.TUBE 1 APPLIC EACH EYE ×4 (09:44→20:20)
[2021-12-21 14:28] VITALS: BP 132/82; PULSE 85; RESP 18; TEMP 36.6; O2SAT 98
--- NOTE | 2021-12-21 14:41 | CASEMGMT ---
Pt with confusion, tc to pt Irina Dow for assessment. No answer on phone, left message with call back number to return call.
--- NOTE | 2021-12-21 15:38 | CM.ED ---
Per Alicia, feeder worker power unit operator, patient's family is meeting with hospice at 10:30 on 12/22/21 Bhakti SALEH
[2021-12-21] MEDS: Potassium Chloride Oral Tablet 20 MEQ PO (17:12)
[2021-12-21] MEDS: Memantine Hydrochloride 5 MG Tablet PO (17:12)
[2021-12-21 20:14] VITALS: BP 152/86; PULSE 85; RESP 20; TEMP 37.1; O2SAT 97
[2021-12-21] MEDS: MELATONIN 3 MG TABLET PO (20:20)
[2021-12-21] MEDS: Mag Hydrox/Al Hydrox/Simeth 30 ML UDC 15 ML PO (20:20)
[2021-12-21] MEDS: Atorvastatin Calcium 40 MG Tablet PO (20:21)
[2021-12-21] MEDS: Donepezil HCl 5 MG Tablet PO (20:21)
[2021-12-21] MEDS: Doxazosin 1 MG Tablet 2 MG PO (20:21)
[2021-12-21] MEDS: Lisinopril 10 MG Tablet PO (20:22)
[2021-12-21] MEDS: QUEtiapine 25 MG Tablet 12.5 MG PO (20:22)
[2021-12-22 02:53] VITALS: BP 145/76; PULSE 97; RESP 18; TEMP 36.9; O2SAT 97
[2021-12-22] MEDS: 0.9% Saline Lock 10 ML Syringe IV ×3 (05:31→22:20)
[2021-12-22 05:57] LABS: Absolute Lymphocyte Count 1.24 X10^3/uL (0.83-4.51); Absolute Neutrophil Count 4.9 X10^3/uL (2.0-7.7); Basophil# 0.02 X10^3/uL; Basophil% 0.3 % (0-1); Eosinophil# 0.04 X10^3/uL; Eosinophils% 0.6 % (0-5); Hematocrit 37.4 % (40-54); Hemoglobin 13.1 g/dL (13.0-16.5); Lymphocyte # 1.24 X10^3/ul (0.83-4.51); Lymphocyte % 17.7 % (19-41); Mean Corpuscular Hgb 31.5 pg (27.0-32.0); Mean Corpuscular Volume 89.9 fL (80-94); Mean Platelet Vol. 9.6 fl (6.2-12.0); Monocyte# 0.74 X10^3/uL; Monocyte% 10.6 % (0-10); NRBC Flagged by Analyzer 0 % (0-5); Neutrophil % 70.1 % (47-70); Platelet Count 332 K/mm3 (150-450); RBC Distribution Width CV 15.1 % (11.6-14.6); RBC Distribution Width SD 49.8 fl (35.1-43.9); Red Blood Count 4.16 M/mm3 (4.6-6.2)
[2021-12-22 06:23] LABS: Anion Gap 10 (5-15); BUN 9 mg/dL (7-18); BUN/Creat Ratio 24.1 RATIO (10-20); Calcium,Total 7.4 mg/dL (8.5-10.1); Chloride 110 mmol/L (98-107); Creatinine, Serum 0.37 mg/dL (0.70-1.30); EST Glomerular Filtration Rate 242 mL/min (>60); Est Glom Filt Rate - Afr Amer 293 mL/min (>60); Estimated Creatinine Clearance 64.81 ml/min; Glucose 103 mg/dL (74-106); Potassium 3.2 mmol/L (3.5-5.1); Sodium Level 137 mmol/L (136-145)
[2021-12-22 07:39] VITALS: O2SAT 96
[2021-12-22 09:18] VITALS: BP 152/76; PULSE 103; RESP 18; TEMP 36.7; O2SAT 96
[2021-12-22 09:20] LABS: Magnesium 2.1 mg/dL (1.6-2.6); Phosphorus 1.1 mg/dL (2.5-4.9)
[2021-12-22] MEDS: Enoxaparin 40 MG/0.4 ML Syringe SC (09:33)
[2021-12-22] MEDS: Erythromycin Base 1 OPTH.TUBE 1 APPLIC EACH EYE ×4 (09:33→22:20)
[2021-12-22] MEDS: Potassium Chloride Oral Tablet 20 MEQ 40 MEQ PO (09:33)
[2021-12-22 09:34] VITALS: PULSE 83
[2021-12-22] MEDS: Metoprolol(XL)Succ 50 MG Tablet PO (09:34)
[2021-12-22] MEDS: Multivitamins,Therapeutic Tablet 1 TABLET PO (09:34)
[2021-12-22] MEDS: Aspirin E.C. 81 MG Tablet PO (09:34)
[2021-12-22] MEDS: Memantine Hydrochloride 5 MG Tablet PO (09:34)
[2021-12-22] MEDS: Mag Hydrox/Al Hydrox/Simeth 30 ML UDC 15 ML PO (11:05)
--- NOTE | 2021-12-22 15:28 | PCM.PN.HOSP ---
Subjective Subjective Follow-up for confusion, acute encephalopathy. Hospice/palliative care consult was done. The is interested in home hospice. Objective Data Objective Data Vital Signs: Vital Signs Temp Pulse Resp BP Pulse Ox O2 Del Method 98.1 F 83 18 152/76 H 96 Room Air 12/22/21 09:18 12/22/21 09:34 12/22/21 09:18 12/22/21 09:18 12/22/21 09:18 12/22/21 09:23 Oxygen Delivery Method Room Air Weight: 182 lb 6.4 oz Body Mass Index (BMI) 27.1 Intake & Output: Intake and Output for Last 24 Hours 12/20/21 12/21/21 12/22/21 23:59 23:59 23:59 Intake Total 1502.5 / 1502.5 2161 142 / 142 Output Total 800 / 800 50 / 50 Balance 702.5 / 702.5 2161 92 / 92 Medical Nutrition Assessment Dietitian: Malnutrition Criteria Met Start: 12/22/21 10:21 Freq: Status: Active Protocol: Document 12/22/21 10:21 FABY (Rec: 12/22/21 10:21 FABY [id number]) Nutrition Malnutrition Evidence of Malnutrition Exists Yes Malnutrition (severe): Acute Illness/Injury Evidenced By Suboptimal Energy Intake ( Severe),Weight Loss (Severe) Clinical Problem Acute Disease or Injury Related Malnutrition Etiology severe, related to inadequate energy intake Signs/Symptoms as evidenced by <75% po intake x 4 days and 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 Lab / Micro Data Result Diagrams: 12/22/21 05:36 12/22/21 05:36 Labs: Laboratory Results - last 24 hr 12/22/21 05:36: WBC 7.0, RBC 4.16 L, Hgb 13.1, Hct 37.4 L, MCV 89.9, MCH 31.5, MCHC 35.0, RDW Std Deviation 49.8 H, RDW Coeff of Amanda 15.1 H, Plt Count 332, MPV 9.6, Immature Gran % (Auto) 0.700, Neut % (Auto) 70.1 H, Lymph % (Auto) 17.7 L, [place] % (Auto) 10.6 H, Eos % (Auto) 0.6, Baso % (Auto) 0.3, Absolute Neuts (auto) 4.9, Absolute Lymphs (auto) 1.24, Nucleated RBC % 0 12/22/21 05:36: Sodium 137, Potassium 3.2 L, Chloride 110 H, Carbon Dioxide 17.0 L, Anion Gap 10, BUN 9, Creatinine 0.37 L, Estim Creat Clear Calc 64.81, Est GFR (MDRD) Af Amer 293, Est GFR (MDRD) Non-Af 242, BUN/Creatinine Ratio 24.1 H, Glucose 103, Calcium 7.4 L 12/22/21 05:36: Phosphorus 1.1 L*, Magnesium 2.1 Micro: Microbiology 12/20/21 23:45 Mucosa - Nose Respiratory Panel (PCR) - Final 12/20/21 20:09 Urine Catheter - Catheter Streptococcus pneumoniae Antigen (M - Final 12/20/21 20:09 Urine Catheter - Catheter Legionella Antigen - Final Rhythm Strip Rhythm Strip: Sinus Rhythm Rate: 80 Ectopy: PVC(s) Physical Exam Narrative Seen and examined. Patient is more awake, responsive to simple questions. Sitting up on the bed on himself. Lot of improvement since yesterday. Patient cannot tell the year and the month but oriented to day and night in place. As per the patient mental health is gradually declining with slowness, increased time for recall and registration, loss of fluency of his speech, pausing in conversation. But for last 1 week, patient had increase sleepiness, decreased oral intake, no appetite fatigue. No fever or chills. No dysuria. Patient has mild increased cough. Physical exam General: Awake and alert. Speech coherent HEENT: Atraumatic, PERRLA, EOMI, Normocephalic Oral: No Gingival or Mucosal Lesions/ Ulcerations Neck: Supple, No JVD, Negative Carotid Bruits Lungs: Air entry diminished in bilateral lung bases. No crepitation/rhonchi Cardiovascular: Regular rate, Regular Rhythm, Normal S1, Normal S2, No murmurs Abdomen: Bowel Sounds Present, Soft, Non Tender, Non-Distended : No renal angle tenderness. No suprapubic tenderness. Extremities: No edema, Capillary Refill Less than 3 Seconds Skin: No rashes, No breakdown Musculoskeletal: No Tenderness to Palpation of Joints or Extremities Neurological: Cranial nerves II-XII grossly intact, no focal lateralizing sign. DTR 2+. Psych/Mental Status: Flat affect, dementia. Amnesia Assessment & Plan Assessment/Plan (1) Pneumonia: PLAN: Plan The patient is a 76 y/o M with multiple comorbidities admitted with acute decline in physical health, oral intake no appetite fatigue, cough on top of chronic dementia. 1. Acute Encephalopathy with history of baseline dementia, disorderly behavior: Possible metabolic/infectious encephalopathy: Patient admitted to MedSurg floor. Try to treat underlying disorder. 12/22: Acute encephalopathy has resolved. Patient has baseline dementia and is on Aricept and memantine. 2. Right lower lobe possible aspiration pneumonia with history of stage IV Lung Cancer: No fever during hospital course. No hypoxia or tachypnea. Patient was empirically started on IV Rocephin and Zithromax. UA is negative, WBC 0-5 LE 25 nitrite negative, bacteria negative. Respiratory panel and urinary antigens are negative. We will change the antibiotic to IV Unasyn. 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 Patient follows Dr. Weinstein. Patient and family interested in Hospice who have been consulted. Patient already established with Palliative. 12/22: Hospice consult was done. Needs arrangement to be made at home. Speech therapy ordered for concern of aspiration pneumonia. 3. BL Eye Conjunctivitis: continue routine eye care and cleansing, start erythromycin ointment until resolved. 4. CAD: s/p prior CABG x 3 and PCI,l continue home aspirin, metoprolol, lisinopril, statin therapy. 5. Hypertension: Will continue home metoprolol, lisinopril, clonidine, amlodipine with hold parameters as needed, PRN IV hydralazine. 6. Hyperlipidemia: Will continue home statin therapy. 7. Dementia unclear type with unclear behavioral disturbance history: Patient did not had much conversation. At home also as per he does not have much facial recognition, pausing during conversation increased recall time and mental slowness. Continue home Aricept and memantine and low dose seroquel regimen. 8. DVT Prophylaxis: SCDs, lovenox. 9. CODE status: Patient is his HCPOA or living will is currently in place. Discussed CODE status at length including difference between FULL code, DNR-CCA and DNR-CC status. Following discussions about the differences in these status, requested DNR-CCA, no intubation status but interested in Hospice discussions. Charges/Coding Visit Charges Inpatient E&M: 17316 Subs Hosp L2
[2021-12-22 16:15] VITALS: BP 141/77; PULSE 79; RESP 18; TEMP 37.3; O2SAT 95
--- NOTE | 2021-12-22 18:14 | CASEMGMT ---
Social Work Note ALEXEI spoke with [facility]. Pt and pt's family have signed Hospice paperwork and plan is home with Hospice. Family is requesting discharge Saturday. [facility] states pt can discharge home Saturday with Hospice and they will open pt's case Saturday. [facility] states that if pt gets worse, to call them and let them know and they will see if they can see pt Saturday instead of Saturday. [facility] states to have staff call them Saturday when pt discharges home and to give update on how pt is doing. ALEXEI updated property consultant. Green Sheet on chart. Plan: Home with Hospice Saturday Priya Kaminski STEEL CONSTRUCTION WORKER, ESTATE ATTORNEY
[2021-12-22 22:12] VITALS: BP 144/75; PULSE 73; RESP 18; TEMP 36.9; O2SAT 97
[2021-12-22] MEDS: Lisinopril 10 MG Tablet PO (22:20)
[2021-12-22] MEDS: Atorvastatin Calcium 40 MG Tablet PO (22:20)
[2021-12-22] MEDS: Doxazosin 1 MG Tablet 2 MG PO (22:20)
[2021-12-22] MEDS: QUEtiapine 25 MG Tablet 12.5 MG PO (22:20)
[2021-12-22] MEDS: Donepezil HCl 5 MG Tablet PO (22:21)
[2021-12-23 06:25] VITALS: BP 145/74; PULSE 74; RESP 18; TEMP 36.4; O2SAT 97
[2021-12-23 07:48] VITALS: O2SAT 95
[2021-12-23] MEDS: Potassium Chloride Oral Tablet 20 MEQ 40 MEQ PO (09:49)
[2021-12-23] MEDS: Memantine Hydrochloride 5 MG Tablet PO (09:49)
[2021-12-23 09:50] VITALS: BP 129/80; PULSE 78
[2021-12-23] MEDS: Multivitamins,Therapeutic Tablet 1 TABLET PO (09:50)
[2021-12-23] MEDS: Metoprolol(XL)Succ 50 MG Tablet PO (09:50)
[2021-12-23] MEDS: Enoxaparin 40 MG/0.4 ML Syringe SC (09:51)
[2021-12-23] MEDS: Erythromycin Base 1 OPTH.TUBE 1 APPLIC EACH EYE ×3 (09:51→20:57)
[2021-12-23] MEDS: Aspirin E.C. 81 MG Tablet PO (09:51)
[2021-12-23 10:18] VITALS: BP 129/80; PULSE 72; RESP 18; TEMP 37.1; O2SAT 97
--- NOTE | 2021-12-23 13:48 | PN.HOSP_ITS ---
Subjective Subjective Discussed with the patient and his . Plan for discharge to home hospice care tomorrow AM. Objective Data Objective Data Vital Signs: Vital Signs Temp Pulse Resp BP Pulse Ox O2 Del Method 98.7 F 72 18 129/80 H 97 Room Air 12/23/21 10:18 12/23/21 10:18 12/23/21 10:18 12/23/21 10:18 12/23/21 10:18 12/23/21 10:18 Oxygen Delivery Method Room Air Weight: 183 lb 3.266 oz Body Mass Index (BMI) 27.1 Intake & Output: Intake and Output for Last 24 Hours 12/21/21 12/22/21 12/23/21 23:59 23:59 23:59 Intake Total 2161 / 2191 655.3333 / 655.3333 950 / 950 Output Total 50 / 50 50 / 50 Balance 2161 605.3333 / 605.3333 900 / 900 Medical Nutrition Assessment Dietitian: Malnutrition Criteria Met Start: 12/22/21 10:21 Freq: Status: Active Protocol: Document 12/22/21 10:21 FABY (Rec: 12/22/21 10:21 FABY [id number]) Nutrition Malnutrition Evidence of Malnutrition Exists Yes Malnutrition (severe): Acute Illness/Injury Evidenced By Suboptimal Energy Intake ( Severe),Weight Loss (Severe) Clinical Problem Acute Disease or Injury Related Malnutrition Etiology severe, related to inadequate energy intake Signs/Symptoms as evidenced by <75% po intake x 4 days and 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 Lab / Micro Data Result Diagrams: 12/22/21 05:36 12/22/21 05:36 Micro: Microbiology 12/20/21 20:56 Blood Culture (Wb) - Left Forearm Blood Culture - Preliminary No growth in 48 hours. 12/20/21 18:55 Blood Culture (Wb) - Right Forearm Blood Culture - Preliminary No growth in 48 hours. 12/20/21 23:45 Mucosa - Nose Respiratory Panel (PCR) - Final 12/20/21 20:09 Urine Catheter - Catheter Streptococcus pneumoniae Antigen (M - Final 12/20/21 20:09 Urine Catheter - Catheter Legionella Antigen - Final Rhythm Strip Rhythm Strip: Sinus Rhythm Rate: 80 Ectopy: PVC(s) Physical Exam Narrative Seen and examined. Patient is awake, responsive to simple questions. Awaiting his breakfast. As per the patient mental health is gradually declining with slowness, increased time for recall and registration, loss of fluency of his speech, pausing in conversation. But for last 1 week, patient had increase sleepiness, decreased oral intake, no appetite fatigue. No fever or chills. No dysuria. Physical exam General: Awake and alert. Speech coherent HEENT: Atraumatic, PERRLA, EOMI, Normocephalic Oral: No Gingival or Mucosal Lesions/ Ulcerations Neck: Supple, No JVD, Negative Carotid Bruits Lungs: Air entry diminished in bilateral lung bases. No crepitation/rhonchi Cardiovascular: Regular rate, Regular Rhythm, Normal S1, Normal S2, No murmurs Abdomen: Bowel Sounds Present, Soft, Non Tender, Non-Distended : No renal angle tenderness. No suprapubic tenderness. Extremities: No edema, Capillary Refill Less than 3 Seconds Skin: No rashes, No breakdown Musculoskeletal: No Tenderness to Palpation of Joints or Extremities Neurological: Cranial nerves II-XII grossly intact, no focal lateralizing sign. DTR 2+. Psych/Mental Status: Flat affect, dementia. Amnesia Assessment & Plan Assessment/Plan (1) Pneumonia: PLAN: Plan The patient is a 76 y/o M with multiple comorbidities admitted with acute decline in physical health, oral intake no appetite fatigue, cough on top of chronic dementia. 1. Acute Encephalopathy with history of baseline dementia, disorderly behavior: Possible metabolic/infectious encephalopathy: Patient admitted to MedSurg floor. Try to treat underlying disorder. 12/22: Acute encephalopathy has resolved. Patient has baseline dementia and is on Aricept and memantine. 2. Right lower lobe possible aspiration pneumonia with history of stage IV Lung Cancer: No fever during hospital course. No hypoxia or tachypnea. Patient was empirically started on IV Rocephin and Zithromax. UA is negative, WBC 0-5 LE 25 nitrite negative, bacteria negative. Respiratory panel and urinary antigens are negative. We will change the antibiotic to IV Unasyn. 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 Patient follows Dr. Weinstein. Patient and family interested in Hospice who have been consulted. Patient already established with Palliative. 12/22: Hospice consult was done. Needs arrangement to be made at home. Speech therapy ordered for concern of aspiration pneumonia. 12/23: Plan for discharge to hospice tomorrow. further therapy he has small cell cancer, extended 3. BL Eye Conjunctivitis: continue routine eye care and cleansing, start erythromycin ointment until resolved. 4. CAD: s/p prior CABG x 3 and PCI,l continue home aspirin, metoprolol, lisinopril, statin therapy. 12/06 no chest pain or acute cardiopulmonary symptoms. 5. Hypertension: Will continue home metoprolol, lisinopril, clonidine, amlodipine with hold parameters as needed, PRN IV hydralazine. 6. Hyperlipidemia: continue home statin therapy. 7. Dementia unclear type with unclear behavioral disturbance history: Patient did not had much conversation. At home also as per he does not have much facial recognition, pausing during conversation increased recall time and mental slowness. Continue home Aricept and memantine and low dose seroquel regimen. 8. DVT Prophylaxis: SCDs, lovenox. 9. CODE status: Patient is his HCPOA or living will is currently in place. Discussed CODE status at length including difference between FULL code, DNR-CCA and DNR-CC status. Following discussions about the differences in these status, requested DNR-CCA, no intubation status but interested in Hospice discussions. Charges/Coding Visit Charges Inpatient E&M: 59210 Subs Hosp L2
[2021-12-23 15:28] VITALS: BP 135/65; PULSE 82; RESP 18; TEMP 36.8; O2SAT 98
[2021-12-23] MEDS: Haloperidol Lactate 5 MG/ML Vial 2 MG IM (16:27)
[2021-12-23 20:43] VITALS: BP 146/72; PULSE 67; RESP 12; TEMP 36.9; O2SAT 97
[2021-12-23] MEDS: Doxazosin 1 MG Tablet 2 MG PO (20:53)
[2021-12-23] MEDS: Atorvastatin Calcium 40 MG Tablet PO (20:53)
[2021-12-23] MEDS: QUEtiapine 25 MG Tablet PO (20:53)
[2021-12-23] MEDS: Lisinopril 10 MG Tablet PO (20:53)
[2021-12-23] MEDS: Donepezil HCl 5 MG Tablet PO (20:53)
[2021-12-24 02:45] VITALS: BP 132/72; PULSE 64; RESP 12; TEMP 36.8; O2SAT 98
--- NOTE | 2021-12-24 08:55 | PCM.DC ---
Discharge Instructions Diet Discharge Diet: Light diet - advance as tolerated Activity Discharge Activity: Return to Normal Activity and May Not Drive Weight Bearing Status: Weight bearing as tolerated Dressing / Incision Call your doctor if you observe: - (Home hospice care) Follow Up Care Test Results: Test results from this visit will be discussed in further detail at your follow-up appointment, if applicable. Discharge Plan Admission Admit Date/Time: 12/20/21 21:47 Primary Reason for Your Visit: advanced dementia Attending Provider: Mitchell Rader Primary Care Provider: Trista Prajapati Consulting Providers: Ruth Cavazos ; Tracy Mcdonald ; Butch Macias ; Yvonne Kellogg ; Kayla Duque ; Itzel Hopkins BONDING MACHINE SETTER Discharge Orders/Prescriptions Prescriptions: New sennosides-docusate sodium [Stool Softener-Stimulant Laxat] 8.6-50 mg Tablet 2 tab PO BID PRN PRN (Reason: Constipation) Qty: 60 0RF lisinopril 10 mg Tablet 10 mg PO QHS Qty: 30 1RF erythromycin 5 mg/gram (0.5 %) Ointment 1 applic EACH EYE 4X/DAY Qty: 3.5 0RF Rx Instructions: for 3 more days quetiapine [Seroquel] 25 mg tablet 12.5 mg PO QHS Qty: 30 0RF Rx Instructions: Half tablet to 1 tablet depending on severity of agitation amoxicillin-pot clavulanate [Augmentin] 500-125 mg tablet 1 tab PO BID Qty: 8 0RF Continued multivitamin Tablet 1 tab PO DAILY metoprolol succinate 50 mg tablet extended release 24 hr 50 mg PO DAILY Retevmo 80 mg Capsule 160 mg PO BID atorvastatin 80 mg tablet 80 mg PO QHS Label Comments: lowers cholesterol aspirin 81 mg tablet,delayed release (DR/EC) 81 mg PO DAILY doxazosin 2 mg tablet 2 mg PO QHS loperamide [Imodium A-D] 2 mg tablet 2 - 4 mg PO Q4H PRN (Reason: loose stool) Qty: 30 0RF Rx Instructions: administer after each loose stool until symptoms controlled; do not exceed 8 mg per 24 hrs memantine [Namenda] 5 mg tablet 5 mg PO DAILY donepezil [Aricept] 5 mg tablet 5 mg PO QHS Rx Instructions: one at bedtime for ten days, then two at bedtime thereafter Changed potassium chloride 20 mEq tablet extended release 40 meq PO DAILY Qty: 30 0RF Discontinued clonidine HCl 0.1 mg tablet 0.1 mg PO BID lisinopril 40 mg tablet 40 mg PO QHS amlodipine 10 mg tablet 10 mg PO QHS quetiapine [Seroquel] 25 mg tablet 12.5 - 25 mg PO QHS Rx Instructions: 1/2 -1 at bedtime if needed for sleep Referrals / Follow Up: Trista Prajapati MD [Primary Care Provider] - Disposition Disposition (needs filled in before D/C Order can be placed): Hospice in Home
[2021-12-24 09:51] LABS: Anion Gap 7 (5-15); BUN 10 mg/dL (7-18); BUN/Creat Ratio 21.6 RATIO (10-20); Calcium,Total 7.5 mg/dL (8.5-10.1); Chloride 109 mmol/L (98-107); Creatinine, Serum 0.46 mg/dL (0.70-1.30); EST Glomerular Filtration Rate 189 mL/min (>60); Est Glom Filt Rate - Afr Amer 229 mL/min (>60); Estimated Creatinine Clearance 64.81 ml/min; Glucose 95 mg/dL (74-106); Sodium Level 136 mmol/L (136-145)
[2021-12-24 09:59] VITALS: BP 125/67; PULSE 69; RESP 18; TEMP 37.1; O2SAT 93
[2021-12-24] MEDS: Multivitamins,Therapeutic Tablet 1 TABLET PO (10:01)
[2021-12-24] MEDS: Potassium Chloride Oral Tablet 20 MEQ 40 MEQ PO (10:01)
[2021-12-24] MEDS: Enoxaparin 40 MG/0.4 ML Syringe SC (10:01)
[2021-12-24] MEDS: Memantine Hydrochloride 5 MG Tablet PO (10:01)
[2021-12-24] MEDS: Aspirin E.C. 81 MG Tablet PO (10:01)
[2021-12-24 10:02] VITALS: PULSE 69
[2021-12-24] MEDS: QUEtiapine 25 MG Tablet PO (10:02)
[2021-12-24] MEDS: Metoprolol(XL)Succ 50 MG Tablet PO (10:02)
[2021-12-24] MEDS: Erythromycin Base 1 OPTH.TUBE 1 APPLIC EACH EYE (10:08)
--- NOTE | 2021-12-24 12:56 | DS.PCM_ITS ---
Providers Date of Admission: 12/20/21 Date of Discharge: 12/24/21 Primary Care Physician: Dr. Trista Prajapati MD Consultations 12/20/21 23:03 Consult: Hospice / Palliative Care Routine Consulting Provider: [facility] Reason for Consult: Family interested in hospice, already in palliative, Stage IV lung CA. EMERGENT Consult: No MD Notified: Yes Date Notified: 12/21/21 Time Notified: 11:13 Method of Notification: phone Reason For Visit: ENCEPHALOPATHY, PNA Diagnosis Discharge Diagnosis (1) Pneumonia: Status: Acute Code(s): J18.9 - Pneumonia, unspecified organism Medications at Discharge Home Medications multivitamin 1 tab PO DAILY vitamin 06/16/21 metoprolol succinate 50 mg tablet,extended release 24 hr 50 mg PO DAILY heart 12/01/21 aspirin 81 mg tablet,delayed release 81 mg PO DAILY HEART 12/05/21 atorvastatin 80 mg tablet 80 mg PO QHS CHOLESTEROL 12/05/21 doxazosin 2 mg tablet 2 mg PO QHS sleep 12/05/21 selpercatinib 80 mg capsule (Retevmo) 160 mg PO BID chemo 12/05/21 loperamide 2 mg tablet (Imodium A-D) 2 - 4 mg PO Q4H PRN loose stool #30 tabs 12/07/21 donepezil 5 mg tablet (Aricept) 5 mg PO QHS memory 12/20/21 memantine 5 mg tablet (Namenda) 5 mg PO DAILY memory 12/20/21 amoxicillin 500 mg-potassium clavulanate 125 mg tablet (Augmentin) 1 tab PO BID #8 tabs 12/24/21 erythromycin 5 mg/gram (0.5 %) eye ointment 1 applic EACH EYE 4X/DAY #3.5 grams 12/24/21 lisinopril 10 mg tablet 10 mg PO QHS #30 tabs 12/24/21 potassium chloride 20 mEq tablet,extended release 40 meq PO DAILY supplement #30 tabs 12/24/21 quetiapine 25 mg tablet (Seroquel) 12.5 mg PO QHS #30 tabs 12/24/21 sennosides 8.6 mg-docusate sodium 50 mg tablet (Stool Softener-Stimulant Laxative) 2 tab PO BID PRN PRN Constipation #60 tabs 12/24/21 Hospital Course Procedures None Summary of Care Provided Hospital Course: The patient is a 76 y/o M with multiple comorbidities admitted with acute decline in physical health, no oral intake, no appetite, fatigue, cough on top of chronic dementia. 1. Acute Encephalopathy with history of baseline dementia, disorderly behavior: Possible metabolic/infectious encephalopathy: Patient admitted to MedSurg floor. 12/22: Acute encephalopathy has resolved. Patient has baseline dementia and is on Aricept and memantine. 12/24: Patient on baseline mental function, awake and participates in conversation. 2. Right lower lobe possible aspiration pneumonia with history of stage IV Lung Cancer: No fever during hospital course. No hypoxia or tachypnea. Patient was empirically started on IV Rocephin and Zithromax. UA is negative, WBC 0-5 LE 25 nitrite negative, bacteria negative. Respiratory panel and urinary antigens are negative. We will change the antibiotic to IV Unasyn. 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 Patient follows Dr. Weinstein. Patient and family interested in Hospice who have been consulted. Patient already established with Palliative. 12/22: Hospice consult was done. Needs arrangement to be made at home. Speech therapy ordered for concern of aspiration pneumonia. 12/23: Plan for discharge to hospice tomorrow. further therapy he has small cell cancer, extended 12/24: Patient is discharged on Augmentin to complete a total of 7 days of antibiotics. 3. BL Eye Conjunctivitis: continue routine eye care and cleansing, start erythromycin ointment until resolved. Prescription for erythromycin ophthalmic ointment given. 4. CAD: s/p prior CABG x 3 and PCI,l continue home aspirin, metoprolol, lisinopril, statin therapy. 12/24: No chest pain or acute cardiopulmonary symptoms. 5. Hypertension: Will continue home metoprolol, lisinopril, clonidine, amlodipine with hold parameters as needed, PRN IV hydralazine. 6. Hyperlipidemia: continue home statin therapy. 7. Dementia unclear type with unclear behavioral disturbance history: Patient did not had much conversation. At home also as per he does not have much facial recognition, pausing during conversation increased recall time and mental slowness. Continue home Aricept and memantine and low dose seroquel regimen. 8. DVT Prophylaxis: SCDs, lovenox. 9. CODE status: Patient is his HCPOA or living will is currently in place. Discussed CODE status at length including difference between FULL code, DNR-CCA and DNR-CC status. Following discussions about the differences in these status, requested DNR-CCA, no intubation status but interested in Hospice discussions. Discharge medication reconciliation done. Discharge follow-up instructions completed. Discharge process discussed with the patient and all questions were answered to patient's satisfaction. Patient is discharged home with home hospice care. DNRCC papers signed. Total time spent, exact 35 minutes on discharge meds reconciliation, examination, coordination of care with nurses and ancillary staff, review of imaging and blood test and discussion with the patient on follow-up instructions. Physical Exam Narrative Seen and examined. Patient is awake, responsive to simple questions. Awaiting his breakfast. As per the patient mental health is gradually declining with slowness, increased time for recall and registration, loss of fluency of his speech, pausing in conversation. But for last 1 week, patient had increase sleepiness, decreased oral intake, no appetite fatigue. No fever or chills. No dysuria. Physical exam General: Awake and alert. Speech coherent HEENT: Atraumatic, PERRLA, EOMI, Normocephalic Oral: No Gingival or Mucosal Lesions/ Ulcerations Neck: Supple, No JVD, Negative Carotid Bruits Lungs: Air entry diminished in bilateral lung bases. No crepitation/rhonchi Cardiovascular: Regular rate, Regular Rhythm, Normal S1, Normal S2, No murmurs Abdomen: Bowel Sounds Present, Soft, Non Tender, Non-Distended : No renal angle tenderness. No suprapubic tenderness. Extremities: No edema, Capillary Refill Less than 3 Seconds Skin: No rashes, No breakdown Musculoskeletal: No Tenderness to Palpation of Joints or Extremities Neurological: Cranial nerves II-XII grossly intact, no focal lateralizing sign. DTR 2+. Psych/Mental Status: Flat affect, dementia. 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 Weight / BMI Weight Weight: 183 lb 3.266 oz Body Mass Index (BMI) 27.1 ABG / Lab / Microbiology Data Result Diagrams: 12/22/21 05:36 12/24/21 08:19 Microbiology: Microbiology 12/20/21 20:56 Blood Culture (Wb) - Left Forearm Blood Culture - Preliminary No growth in 48 hours. 12/20/21 18:55 Blood Culture (Wb) - Right Forearm Blood Culture - Preliminary No growth in 48 hours. 12/20/21 23:45 Mucosa - Nose Respiratory Panel (PCR) - Final 12/20/21 20:09 Urine Catheter - Catheter Streptococcus pneumoniae Antigen (M - Final 12/20/21 20:09 Urine Catheter - Catheter Legionella Antigen - Final D/C Instructions Discharge Diet: Light diet - advance as tolerated Weight Bearing Status: Weight bearing as tolerated Call your doctor if you observe: - (Home hospice care) Meaningful Use Info Meaningful Use Diagnoses (Choose all that apply): None applicable Discharge Plan Admission Admit Date/Time: 12/20/21 21:47 Primary Reason for Your Visit: advanced dementia Attending Provider: Mitchell Rader Primary Care Provider: Trista Prajapati Consulting Providers: Ruth Cavazos ; Tracy Mcdonald ; Butch Macias ; Yvonne Kellogg ; Kayla Duque ; Itzel Hopkins [employer]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 Discharge Orders/Prescriptions Prescriptions: New sennosides-docusate sodium [Stool Softener-Stimulant Laxat] 8.6-50 mg Tablet 2 tab PO BID PRN PRN (Reason: Constipation) Qty: 60 0RF lisinopril 10 mg Tablet 10 mg PO QHS Qty: 30 1RF erythromycin 5 mg/gram (0.5 %) Ointment 1 applic EACH EYE 4X/DAY Qty: 3.5 0RF Rx Instructions: for 3 more days quetiapine [Seroquel] 25 mg tablet 12.5 mg PO QHS Qty: 30 0RF Rx Instructions: Half tablet to 1 tablet depending on severity of agitation amoxicillin-pot clavulanate [Augmentin] 500-125 mg tablet 1 tab PO BID Qty: 8 0RF Continued multivitamin Tablet 1 tab PO DAILY metoprolol succinate 50 mg tablet extended release 24 hr 50 mg PO DAILY Retevmo 80 mg Capsule 160 mg PO BID atorvastatin 80 mg tablet 80 mg PO QHS Label Comments: lowers cholesterol aspirin 81 mg tablet,delayed release (DR/EC) 81 mg PO DAILY doxazosin 2 mg tablet 2 mg PO QHS loperamide [Imodium A-D] 2 mg tablet 2 - 4 mg PO Q4H PRN (Reason: loose stool) Qty: 30 0RF Rx Instructions: administer after each loose stool until symptoms controlled; do not exceed 8 mg per 24 hrs memantine [Namenda] 5 mg tablet 5 mg PO DAILY donepezil [Aricept] 5 mg tablet 5 mg PO QHS Rx Instructions: one at bedtime for ten days, then two at bedtime thereafter Changed potassium chloride 20 mEq tablet extended release 40 meq PO DAILY Qty: 30 0RF Discontinued clonidine HCl 0.1 mg tablet 0.1 mg PO BID lisinopril 40 mg tablet 40 mg PO QHS amlodipine 10 mg tablet 10 mg PO QHS quetiapine [Seroquel] 25 mg tablet 12.5 - 25 mg PO QHS Rx Instructions: 1/2 -1 at bedtime if needed for sleep Referrals / Follow Up: Trista Prajapati MD [Primary Care Provider] - Disposition Disposition (needs filled in before D/C Order can be placed): Hospice in Home Charges/Coding Visit Charges Inpatient E&M: 57308 Disch Hosp
== END 2021-12-24 12:53 | disposition hospice, home (50) | DRG 193 ==
LOC: ED 21:23 → MS3 22:25
PROVIDERS: Admitting Provider Family Medicine; Emergency Provider Emergency Medicine; PCP Internal Medicine; Visit Provider Internal Medicine
DX: J18.9 Pneumonia, unspecified organism (principal); G93.41 Metabolic encephalopathy; E43 Unspecified severe protein-calorie malnutrition; C79.51 Secondary malignant neoplasm of bone; C79.70 Secondary malignant neoplasm of unspecified adrenal gland; F02.81 Dementia in other diseases classified elsewhere, unspecified severity, with behavioral disturbance; C34.90 Malignant neoplasm of unspecified part of unspecified bronchus or lung; H10.9 Unspecified conjunctivitis; E78.00 Pure hypercholesterolemia, unspecified; I25.10 Atherosclerotic heart disease of native coronary artery without angina pectoris; I10 Essential (primary) hypertension; Z68.27 Body mass index [BMI] 27.0-27.9, adult; Z95.1 Presence of aortocoronary bypass graft; Z95.5 Presence of coronary angioplasty implant and graft; Z66 Do not resuscitate; Z51.5 Encounter for palliative care; Z79.82 Long term (current) use of aspirin; Z79.899 Other long term (current) drug therapy; Z87.891 Personal history of nicotine dependence
CPT/HCPCS: 36415; 70450; 71045; 80048; 80053; 81001; 83605; 83735; 84100; 84484; 85025; 87040; 87449; 87633; 92610; 93005; 99285; J7030; J7040; A4216; J0295; J0696